=== PATIENT | male | born 1965 | race African-American/Black ===

== ENCOUNTER 2021-07-23 12:36 | Inpatient (IN) ==
--- NOTE | 2021-07-23 12:41 | Emergency Department Note ---
Impression & Plan CHF exacerbation, CKD (chronic kidney disease), Elevated troponin, Hyperkalemia, ICD (implantable cardioverter-defibrillator) in place ED Provider Note NAME: GWEN [id number] JOELLE AGE: 55 SEX: M : 1965 ARRIVES VIA: Ambulance INFORMANT: Patient, ED PROVIDER(S): Dariel Ramesh MD Chief Complaint: Shortness of breath HPI: Patient presents due to concern for shortness of breath which is been ongoing for several days. The patient is had increasing worsening dyspnea on exertion as well as orthopnea. The patient does have occasional cough with clear sputum. Patient does have a known history of CHF and has been taking and increasing doses of his hydrochlorothiazide. The patient had been seen in the [facility] and 40 of Lasix p.o. as well as 80 IV prior to arrival. Patient denies any fevers or chills. Patient denies any chest pains. The patient has noticed increasing weight gain as well as lower extremity edema. Patient denies any prior DVT or PE. The patient does have a defibrillator in place. Patient denies any changes in medications other than increasing his hydrochlorothiazide. ROS: See HPI for pertinent positives and negatives. A total of 10 systems were reviewed and otherwise negative. Past medical history: See below Surgical history: See below Social history: See below Physical Exam: GENERAL: NAD, wearing a mask, non-toxic. EYE EXAM: Normal conjunctiva. PERRL, no anisocoria and EOM's grossly intact w/o pain. NECK: Supple, no nuchal rigidity, no adenopathy, non-tender. No signs of meningismus. FROM of the neck with good chin to chest and neck extension. No stridor. LUNGS: Bibasilar crackles noted. Normal chest wall mechanics. HEART: NSR, no MRG. ABDOMEN: Abdomen soft, non-tender, normo-active bowel sounds, no masses, no rebound or guarding. BACK: No CVA TTP. SKIN: No rashes and no bruising. UPPER EXTREMITIES: Upper extremities are grossly normal. LOWER EXTREMITIES: Grossly normal, 3+ symmetric lower extremity edema without any erythema or calf pain. Lower extremities and plastic restraints. NEURO EXAM: A&O x3, cranial nerves II-XII grossly intact, normal speech, moves all 4 extremities on command w/o issue. Differential diagnoses: Reactive airway disease, pneumonia, pneumothorax, COPD, CHF, infections, cardiac ischemia, pulmonary embolism, musculoskeletal, gastrointestinal, as well as other pathologies. Course: Patient was seen and evaluated the bedside. Full history physical exam was performed. EKG interpreted by me Sinus tachycardia, rate of 107, normal intervals, normal axis, T wave inversion in the lateral leads and high lateral leads. No obvious ST elevations. Imaging Studies: See Below Cardiac monitoring: An order was placed for continuous cardiac monitoring. The monitor shows a rate of 95 with sinus rhythm. MDM: Patient was seen due to concern for shortness of breath and likely volume overload. Blood work was obtained along with a BNP, troponin EKG and chest x- ray. The patient had already received 120 of Lasix. We will monitor the patient's urine output. Patient has a white count of 8.9 with a hemoglobin 9.1 and platelet count that is normal. The patient does have kidney dysfunction with a creat of 7 and potassium greater than 5. Patient troponin is 0.07. The patient has had shortness of breath but denies any active chest pains. I did speak the on-call hospitalist Dr. Fernandez and the patient was to be admitted by the medicine service. I also did speak with the on-call generation engineering technologist given the patient's significant CKD. Dr. Sharp was consulted and will evaluate the patient. Patient did put out 750 cc around the time of admission since presenting to the emergency department. 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 Required: No Beliefs That Will Affect Care: None marital status: Current Living Situation: Other Current Living Situation Comment: Residential 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, 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[facility] How many Children do You have: 14 Feels Safe at Home: Yes Safety Concerns: Feels Safe At This Time Assistive Devices: None Allergies Allergies Allergy/AdvReac Type Severity Reaction Status Date / Time No Known Allergies Allergy Unverified 07/23/21 14:15 Home Meds Home Medications Medication Instructions Recorded Confirmed allopurinol 100 mg tablet 100 mg PO DAILY 07/23/21 07/23/21 aspirin 81 mg tablet,delayed 81 mg PO DAILY 07/23/21 07/23/21 release atorvastatin 80 mg tablet 80 mg PO HS 07/23/21 07/23/21 bumetanide 2 mg tablet 2 mg PO BID 07/23/21 07/23/21 carvedilol 25 mg tablet 50 mg PO BID 07/23/21 07/23/21 docusate sodium 100 mg tablet 100 mg PO DAILY 07/23/21 07/23/21 ferrous sulfate 325 mg (65 mg 325 mg PO Q2D 07/23/21 07/23/21 iron) tablet furosemide 10 mg/mL injection 80 mg IV ONCE 07/23/21 07/23/21 solution furosemide 80 mg tablet 80 mg PO BID 07/23/21 07/23/21 glipizide 10 mg tablet 10 mg PO DAILY 07/23/21 07/23/21 hydralazine 100 mg tablet 100 mg PO BID 07/23/21 07/23/21 hydrochlorothiazide 25 mg tablet 25 mg PO DAILY 07/23/21 07/23/21 insulin NPH isoph U-100 human 100 See Rx Instructions .ROUTE .COMPLEX 07/23/21 07/23/21 unit/mL (3 mL) subcutaneous pen (Novolin N Flexpen) insulin regular human 100 unit/mL 1 sliding scale dose SUBCUT 07/23/21 07/23/21 (3 mL) subcutaneous pen (Novolin R USEASDIRECTD Flexpen) losartan 100 mg tablet 100 mg PO DAILY 07/23/21 07/23/21 Results & Data (ED) Vital Signs Vital Signs - 24 hr 07/23/21 14:40 Pulse Rate [Apical] 100 H Respiratory Rate 20 Respiratory Effort / Characteristics Non-Labored Spontaneous Respiratory Depth Normal Respiratory Pattern Regular Blood Pressure [Right Arm] 142/100 H Blood Pressure Mean [Right Arm] 114 Blood Pressure Position [Right Arm] Sitting Pulse Oximetry 94 Oxygen Delivery Method Room Air Home Medications Current Medication List: was personally reviewed by me Laboratory Data Attestation: I reviewed the patient's lab results. Result diagrams: 07/24/21 05:59 07/24/21 05:59 Lab Results 07/23/21 07/23/21 07/23/21 Range/Units 12:53 12:53 12:53 WBC 8.96 (4.8-10.8) K/uL RBC 3.50 L (4.7-6.1) M/uL Hgb 9.1 L (14.0-18.0) g/dL Hct 28.1 L (42-52) % MCV 80.3 (80-100) fL MCH 26.0 (25-34) pg MCHC 32.4 (32-36) g/dL RDW Std Deviation 47.9 H (36.4-46.3) fL RDW Coeff of Emily 16.2 H (11.5-14.5) % Plt Count 300 (130-400) K/uL MPV 9.4 (7.4-10.4) fL Immature Gran % (Auto) 0.2 % Neut % (Auto) 75.7 % Lymph % (Auto) 17.1 % [place] % (Auto) 5.7 % Eos % (Auto) 1.2 % Baso % (Auto) 0.1 % Neut # (Auto) 6.78 H (1.4-6.5) K/uL Lymph # (Auto) 1.53 (1.2-3.4) K/uL [place] # (Auto) 0.51 (0.11-0.59) K/uL Eos # (Auto) 0.11 (0-0.5) K/uL Baso # (Auto) 0.01 (0-0.2) K/uL Immature Gran # (Auto) 0.02 (0.00-0.02) K/uL Sodium 135 L (136-145) mmol/L Potassium 5.5 H (3.5-5.1) mmol/L Chloride 105 (98-107) mmol/L Carbon Dioxide 22 (21-32) mmol/L Anion Gap 8 (3-11) BUN 70 H (6-23) mg/dl Creatinine 7.86 H* (0.6-1.4) mg/dl Est Cr Clr Drug Dosing 14.3 ml/min Est GFR ( Amer) 8.0 ml/min Est GFR (Non-Af Amer) 6.9 ml/min BUN/Creatinine Ratio 8.9 L (10-20) Glucose 220 H (70-99(Fasting)) mg/dl Calcium 8.1 L (8.5-10.1) mg/dl Magnesium 1.8 (1.7-2.4) mg/dl Iron (35-175) mcg/dl TIBC (250-450) mcg/dl Unsaturated IBC (155-355) mcg/dl Transferrin % Sat (20-50) % Ferritin (8-388) ng/ml Total Bilirubin 0.3 (0.2-1.0) mg/dl AST 10 L (13-39) U/L ALT 11 (7-52) U/L Alkaline Phosphatase 68 (34-104) U/L Troponin I 0.07 H* (0-0.04) ng/ml B-Natriuretic Peptide 569 H (0-100) pg/ml Total Protein 6.8 (6.0-8.3) gm/dl Albumin 3.0 L (3.4-5.0) gm/dl Globulin 3.8 (2.5-4.0) gm/dl Albumin/Globulin Ratio 0.8 L (0.9-2) Folate (>5.38) ng/ml TSH (0.300-4.500) uIu/ml Urine Color Urine Appearance (Clear) Urine pH (4.5-7.5) Ur Specific [place] (1.000-1.030) Urine Protein (Negative) Urine Glucose (UA) (Negative) Urine Ketones (Negative) Urine Blood (Negative) Urine Nitrite (Negative) Urine Bilirubin (Negative) Urine Urobilinogen (Negative) Ur Leukocyte Esterase (Negative) Urine WBC (Auto) (0-5) /hpf Urine RBC (Auto) (0-4) /hpf U Hyaline Cast (Auto) (0-5) /lpf U Epithel Cells (Auto) (0-5) /lpf Urine Bacteria (Auto) (Negative) SARS-CoV-2, RNA, NAAT (NEGATIVE) 07/23/21 07/23/21 07/23/21 Range/Units 12:53 12:53 12:53 WBC (4.8-10.8) K/uL RBC (4.7-6.1) M/uL Hgb (14.0-18.0) g/dL Hct (42-52) % MCV (80-100) fL MCH (25-34) pg MCHC (32-36) g/dL RDW Std Deviation (36.4-46.3) fL RDW Coeff of Emily (11.5-14.5) % Plt Count (130-400) K/uL MPV (7.4-10.4) fL Immature Gran % (Auto) % Neut % (Auto) % Lymph % (Auto) % [place] % (Auto) % Eos % (Auto) % Baso % (Auto) % Neut # (Auto) (1.4-6.5) K/uL Lymph # (Auto) (1.2-3.4) K/uL [place] # (Auto) (0.11-0.59) K/uL Eos # (Auto) (0-0.5) K/uL Baso # (Auto) (0-0.2) K/uL Immature Gran # (Auto) (0.00-0.02) K/uL Sodium (136-145) mmol/L Potassium (3.5-5.1) mmol/L Chloride (98-107) mmol/L Carbon Dioxide (21-32) mmol/L Anion Gap (3-11) BUN (6-23) mg/dl Creatinine (0.6-1.4) mg/dl Est Cr Clr Drug Dosing ml/min Est GFR ( Amer) ml/min Est GFR (Non-Af Amer) ml/min BUN/Creatinine Ratio (10-20) Glucose (70-99(Fasting)) mg/dl Calcium (8.5-10.1) mg/dl Magnesium (1.7-2.4) mg/dl Iron 26 L (35-175) mcg/dl TIBC 228 L (250-450) mcg/dl Unsaturated IBC 202 (155-355) mcg/dl Transferrin % Sat 11 L (20-50) % Ferritin 109.4 (8-388) ng/ml Total Bilirubin (0.2-1.0) mg/dl AST (13-39) U/L ALT (7-52) U/L Alkaline Phosphatase (34-104) U/L Troponin I (0-0.04) ng/ml B-Natriuretic Peptide (0-100) pg/ml Total Protein (6.0-8.3) gm/dl Albumin (3.4-5.0) gm/dl Globulin (2.5-4.0) gm/dl Albumin/Globulin Ratio (0.9-2) Folate 21.42 (>5.38) ng/ml TSH 2.414 (0.300-4.500) uIu/ml Urine Color Urine Appearance (Clear) Urine pH (4.5-7.5) Ur Specific [place] (1.000-1.030) Urine Protein (Negative) Urine Glucose (UA) (Negative) Urine Ketones (Negative) Urine Blood (Negative) Urine Nitrite (Negative) Urine Bilirubin (Negative) Urine Urobilinogen (Negative) Ur Leukocyte Esterase (Negative) Urine WBC (Auto) (0-5) /hpf Urine RBC (Auto) (0-4) /hpf U Hyaline Cast (Auto) (0-5) /lpf U Epithel Cells (Auto) (0-5) /lpf Urine Bacteria (Auto) (Negative) SARS-CoV-2, RNA, NAAT (NEGATIVE) 07/23/21 07/23/21 Range/Units 13:02 13:50 WBC (4.8-10.8) K/uL RBC (4.7-6.1) M/uL Hgb (14.0-18.0) g/dL Hct (42-52) % MCV (80-100) fL MCH (25-34) pg MCHC (32-36) g/dL RDW Std Deviation (36.4-46.3) fL RDW Coeff of Emily (11.5-14.5) % Plt Count (130-400) K/uL MPV (7.4-10.4) fL Immature Gran % (Auto) % Neut % (Auto) % Lymph % (Auto) % [place] % (Auto) % Eos % (Auto) % Baso % (Auto) % Neut # (Auto) (1.4-6.5) K/uL Lymph # (Auto) (1.2-3.4) K/uL [place] # (Auto) (0.11-0.59) K/uL Eos # (Auto) (0-0.5) K/uL Baso # (Auto) (0-0.2) K/uL Immature Gran # (Auto) (0.00-0.02) K/uL Sodium (136-145) mmol/L Potassium (3.5-5.1) mmol/L Chloride (98-107) mmol/L Carbon Dioxide (21-32) mmol/L Anion Gap (3-11) BUN (6-23) mg/dl Creatinine (0.6-1.4) mg/dl Est Cr Clr Drug Dosing ml/min Est GFR ( Amer) ml/min Est GFR (Non-Af Amer) ml/min BUN/Creatinine Ratio (10-20) Glucose (70-99(Fasting)) mg/dl Calcium (8.5-10.1) mg/dl Magnesium (1.7-2.4) mg/dl Iron (35-175) mcg/dl TIBC (250-450) mcg/dl Unsaturated IBC (155-355) mcg/dl Transferrin % Sat (20-50) % Ferritin (8-388) ng/ml Total Bilirubin (0.2-1.0) mg/dl AST (13-39) U/L ALT (7-52) U/L Alkaline Phosphatase (34-104) U/L Troponin I (0-0.04) ng/ml B-Natriuretic Peptide (0-100) pg/ml Total Protein (6.0-8.3) gm/dl Albumin (3.4-5.0) gm/dl Globulin (2.5-4.0) gm/dl Albumin/Globulin Ratio (0.9-2) Folate (>5.38) ng/ml TSH (0.300-4.500) uIu/ml Urine Color Yellow Urine Appearance Clear (Clear) Urine pH 7.0 (4.5-7.5) Ur Specific [place] 1.011 (1.000-1.030) Urine Protein 3+ H (Negative) Urine Glucose (UA) Trace H (Negative) Urine Ketones Negative (Negative) Urine Blood 1+ H (Negative) Urine Nitrite Negative (Negative) Urine Bilirubin Negative (Negative) Urine Urobilinogen Negative (Negative) Ur Leukocyte Esterase Negative (Negative) Urine WBC (Auto) 1-5 (0-5) /hpf Urine RBC (Auto) 0-4 (0-4) /hpf U Hyaline Cast (Auto) 1-5 (0-5) /lpf U Epithel Cells (Auto) 10-20 H (0-5) /lpf Urine Bacteria (Auto) Negative (Negative) SARS-CoV-2, RNA, NAAT NEGATIVE (NEGATIVE) Administered Medications Allopurinol (Allopurinol 100 Mg Tab) 100 mg PO DAILY FRANK Stop: 08/23/21 08:59 Last Admin: 07/24/21 09:22 Dose: 100 mg Documented by: [id number] Aspirin (Aspirin 81 Mg Ectab) 81 mg PO DAILY FRANK Stop: 08/23/21 08:59 Last Admin: 07/24/21 09:22 Dose: 81 mg Documented by: [id number] Atorvastatin Calcium (Atorvastatin 40 Mg Tab) 80 mg PO HS FRANK Stop: 08/22/21 20:59 Last Admin: 07/23/21 19:45 Dose: 80 mg Documented by: [id number] Carvedilol (Carvedilol 25 Mg Tab) 50 mg PO BID FRANK Stop: 08/22/21 20:59 Last Admin: 07/24/21 09:22 Dose: 50 mg Documented by: [id number] Admin: 07/23/21 19:44 Dose: 50 mg Documented by: [id number] Docusate Sodium (Docusate Sodium 100 Mg Cap) 100 mg PO DAILY FRANK Stop: 08/23/21 08:59 Last Admin: 07/24/21 09:32 Dose: Not Given Documented by: [id number] Ferrous Sulfate (Ferrous Sulfate 325 Mg Tab) 325 mg PO Q2D@0900 FRANK Stop: 08/23/21 08:59 Last Admin: 07/24/21 09:23 Dose: 325 mg Documented by: [id number] Furosemide (Furosemide 40 Mg/4 Ml Vial) 80 mg IV [id number] FRANK Stop: 08/22/21 16:59 Last Admin: 07/23/21 19:44 Dose: 80 mg Documented by: [id number] Heparin Sodium (Porcine) (Heparin Sod 5,000 Unit/0.5 Ml Vial) 7,500 units SQ Q8 FRANK Stop: 08/22/21 21:59 Last Admin: 07/24/21 06:17 Dose: 7,500 units Documented by: [id number] Admin: 07/23/21 21:31 Dose: 7,500 units Documented by: [id number] Hydralazine HCl (Hydralazine Tab 50 Mg Tab) 100 mg PO TID [facility] Stop: 08/22/21 20:59 Last Admin: 07/24/21 09:22 Dose: 100 mg Documented by: [id number] Admin: 07/23/21 19:44 Dose: 100 mg Documented by: [id number] Insulin Aspart (Insulin Aspart Per Unit) 0 units SC ACHS [facility] Stop: 08/22/21 18:38 Last Admin: 07/24/21 12:30 Dose: 3 units Documented by: [id number] Cosigned by: [id number] Admin: 07/24/21 08:53 Dose: 3 units Documented by: [id number] Cosigned by: [id number] Admin: 07/23/21 21:30 Dose: 2 units Documented by: [id number] Cosigned by: [id number] Admin: 07/23/21 19:46 Dose: Not Given Documented by: [id number] Insulin Glargine (Insulin Glargine Solostar 100 Units/Ml 3 Ml Pen) 8 units SC HS [facility] Stop: 08/22/21 20:59 Last Admin: 07/23/21 21:30 Dose: 8 units Documented by: [id number] Cosigned by: [id number] Isosorbide Mononitrate (Isosorbide [place] Extended Rel 30 Mg Tabcr) 30 mg PO QAM [facility] Stop: 08/23/21 08:59 Last Admin: 07/24/21 09:21 Dose: 30 mg Documented by: [id number] Discontinued Medications Chlorothiazide Sodium 250 mg/ (Dextrose) 59 mls @ 200 mls/hr IV ONE ONE Stop: 07/23/21 16:47 Last Infusion: 07/23/21 22:18 Dose: 0 mls/hr Documented by: [id number] Admin: 07/23/21 17:20 Dose: 200 mls/hr Documented by: [id number] Magnesium Sulfate/Dextrose (Magnesium Sulfate / D5w) 1 gm in 100 mls @ 50 mls/hr IV ONE ONE Stop: 07/23/21 18:59 Last Infusion: 07/24/21 02:30 Dose: 0 mls/hr Documented by: [id number] Admin: 07/24/21 00:23 Dose: 50 mls/hr Documented by: [id number] Calcium Gluconate 1,000 mg/ (Dextrose) 60 mls @ 240 mls/hr IV NOW ONE Stop: 07/23/21 18:13 Last Infusion: 07/24/21 00:38 Dose: 0 mls/hr Documented by: [id number] Admin: 07/24/21 00:23 Dose: 240 mls/hr Documented by: [id number] Iron Sucrose 300 mg/ Sodium (Chloride) 265 mls @ 176.667 mls/hr IV NOW ONE Stop: 07/23/21 21:29 Last Infusion: 07/24/21 00:20 Dose: 0 mls/hr Documented by: [id number] Admin: 07/23/21 21:43 Dose: 176.7 mls/hr Documented by: [id number] Isosorbide Mononitrate (Isosorbide [place] Extended Rel 30 Mg Tabcr) 30 mg PO NOW ONE Stop: 07/23/21 19:01 Last Admin: 07/23/21 19:45 Dose: 30 mg Documented by: [id number] Miscellaneous (Stat Iv) 1 ea N/A NOW STA Stop: 07/23/21 18:00 Last Admin: 07/23/21 23:27 Dose: 1 ea Documented by: [id number] Patiromer (Patiromer Calcium Sorbitex 8.4 Gm Pack) 8.4 gm PO ONCE ONE Stop: 07/24/21 08:53 Last Admin: 07/24/21 09:58 Dose: 8.4 gm Documented by: [id number] Imaging Data Radiologist's Impression: Chest X-Ray 07/23/21 12:47 XR chest 1V portable CLINICAL HISTORY: Dyspnea TECHNIQUE: Single frontal radiograph of the chest was obtained. Comparison: None available at the time of this dictation. FINDINGS: Pacemaker defibrillator is seen. Cardiomegaly is noted. The lungs are clear. No evidence of pleural effusion or pneumothorax. IMPRESSION: No acute chest disease. ACT 112: Negative or not required by law. Electronically signed by: Sukhdev Moss M.D. 07/23/2021 1:43 PM Discharge Plan Visit Data Chief Complaint: Shortness of Breath/Dyspnea Stated Complaint: SOB Discharge Problem: CHF exacerbation, CKD (chronic kidney disease), Elevated troponin, Hyperkalemia, ICD (implantable cardioverter-defibrillator) in place Patient Disposition: Admitted As Inpatient Discharge Instructions Interventions: ED Discharge Assessment Last Done: 07/23/21 18:05
[2021-07-23 13:15] LABS: Basophils # (auto) 0.01 K/uL (0-0.2); Basophils % (auto) 0.1 %; Eosinophils # (auto) 0.11 K/uL (0-0.5); Eosinophils % (auto) 1.2 %; Hematocrit (blood only) 28.1 % (42-52); Hemoglobin 9.1 g/dL (14.0-18.0); Immature Granulocytes # (auto) 0.02 K/uL (0.00-0.02); Immature Granulocytes % (auto) 0.2 %; Lymphocytes # (auto) 1.53 K/uL (1.2-3.4); Lymphocytes % (auto) 17.1 %; Mean Corpuscular Hgb Conc 32.4 g/dL (32-36); Mean Corpuscular Volume 80.3 fL (80-100); Mean Platelet Volume 9.4 fL (7.4-10.4); Monocytes # (auto) 0.51 K/uL (0.11-0.59); Monocytes % (auto) 5.7 %; Neutrophils # (auto) 6.78 K/uL (1.4-6.5); Neutrophils % (auto) 75.7 %; Platelet Count 300 K/uL (130-400); RDW Coefficient of Variation 16.2 % (11.5-14.5); RDW Standard Deviation 47.9 fL (36.4-46.3); White Blood Count 8.96 K/uL (4.8-10.8)
--- NOTE | 2021-07-23 13:45 | XRay Report ---
XR chest 1V portable CLINICAL HISTORY: Dyspnea TECHNIQUE: Single frontal radiograph of the chest was obtained. Comparison: None available at the time of this dictation. FINDINGS: Pacemaker defibrillator is seen. Cardiomegaly is noted. The lungs are clear. No evidence of pleural e ffusion or pneumothorax. IMPRESSION: No acute chest disease. ACT 112: Negative or not required by law. Electronically signed by: Sukhdev Moss M.D. 07/23/2021 1:43 PM
[2021-07-23 13:52] LABS: Albumin Globulin Ratio 0.8 (0.9-2); BUN Creatinine Ratio 8.9 (10-20); Bilirubin,Total 0.3 mg/dl (0.2-1.0); Calcium 8.1 mg/dl (8.5-10.1); Creatinine Clr Calc Pharmacy 14.3 ml/min; Est GFR (Non-African American) 6.9 ml/min; Globulin 3.8 gm/dl (2.5-4.0); Magnesium 1.8 mg/dl (1.7-2.4); Potassium 5.5 mmol/L (3.5-5.1); Total Protein 6.8 gm/dl (6.0-8.3); Troponin I 0.07 ng/ml (0-0.04)
[2021-07-23 14:09] LABS: Appearance Urine Clear (Clear); Bacteria Urine Automated Negative (Negative); Bilirubin Urine Negative (Negative); Blood Urine 1+ (Negative); Color Urine Yellow; Glucose Urine UA Trace (Negative); Ketones Urine Negative (Negative); Leukocyte Esterase Urine Negative (Negative); Nitrite Urine Negative (Negative); Protein Urine 3+ (Negative); RBC Urine Automated 0-4 /hpf (0-4); Specific Gravity Urine 1.011 (1.000-1.030); Urobilinogen Urine Negative (Negative)
--- NOTE | 2021-07-23 14:42 | History & Physical Report ---
Date of Service July 23, 2021 Assessment & Plan (1) Cardiorenal syndrome with renal failure: Plan: Presents with elevated BUN and creatinine to 70 and 7.8, mild hyperkalemia, and volume overload with abdominal distention, worsening lower extremity edema, orthopnea, and GROVE Is hypertensive and mildly tachycardic-sinus In the setting of known HFrEF although cardiology records not available at this time Unknown baseline renal function-records requested from intermediate and from [facility] in [place] Urinalysis with 3+ protein, no casts or blood. He is nonoliguric -Admit to PCU -Appreciate nephrology consultation -Give another dose of IV Lasix 80 mg this evening with Diuril 250 mg IV x130 minutes prior -Follow I's and O's, daily weights -Check renal ultrasound -Check echocardiogram -Consult cardiology -Hold/discontinue home losartan, hold home Bumex, furosemide, and HCTZ -Follow BMP again now and in the morning -Low sodium/low potassium/renal diet (2) CKD (chronic kidney disease): Plan: Unknown stage, but was seen by nephrology in 2020 for the first time and was told he had 3 or 4 years until he would likely need dialysis (3) HFrEF (heart failure with reduced ejection fraction): Plan: Previously followed with cardiology at [facility] in [place], but not since he has been incarcerated approximately 8 months ago. Has had ICD first placed in 2006 for what sounds like nonischemic cardiomyopathy of unknown cause Has had replacement of ICD 1 time since then proBNP elevated in the 500s Request records from [facility] Diuresis as above -Continue home carvedilol 50 mg p.o. twice daily -Discontinue home losartan -Continue hydralazine and increased dose to 100 mg p.o. 3 times daily, add iso sorbide 30 mg p.o. once daily for BP control and to reduce preload as per nephrology -Daily I's and O's, weights, low-sodium diet -Holding home p.o. diuretics while on IV diuretics here -Follow BMP, magnesium-replace with 1 g IV magnesium now to keep above 2.0 (4) Elevated troponin: Plan: Troponin elevated at 0.07 on arrival. He does not have any chest pain He does have T wave inversions in the lateral leads and I do not have an old ECG to compare to Check echocardiogram Follow serial troponin and ECG (5) Abnormal ECG: Plan: As above (6) Hyperkalemia: Plan: Potassium 5.5 on admission in the setting of acute kidney injury on CKD making urine and diuresing as above Repeat BMP now Low potassium diet If potassium still elevated, will will give V[place] (7) Anemia: Plan: Hemoglobin 9.0, MCV low at 80 No evidence of bleeding from anywhere Continue home ferrous sulfate Check iron studies, B12, folate, TSH Follow CBC (8) Hypertension: Plan: Elevated blood pressures here Continue home Coreg -Holding home Bumex, furosemide, HCTZ as above -Discontinue losartan as above -Increase hydralazine to 100 mg p.o. 3 times daily and adding isosorbide 30 mg p.o. daily and titrate up as needed (9) Gout: Plan: No acute issues Continue home allopurinol which is renally dosed (10) Diabetes mellitus type 2 in obese: Plan: Blood pressure elevated here 220 Hold home NPH and give Lantus 8 units SQ at bedtime for now Start NovoLog supplemental insulin with meals and at bedtime Check hemoglobin A1c in the morning (11) Obesity: Plan: BMI 44.0 Suspect a lot of his weight is fluid retention at this time Recommend weight loss Plan: DVT prophylaxis-SCDs, heparin SQ Disposition-admit to PCU Full code History of Present Illness Chief Complaint: Shortness of breath, leg swelling Primary Care Provider: MEI Juarez This patient is a 55-year-old male prisoner with a history of likely chronic systolic CHF, AICD, nonischemic cardiomyopathy, CKD unknown stage, gout, DM 2, HTN, and anemia who presents with concern for shortness of breath for a couple of days and EKG changes as noted on intermediate paperwork. He was complaining of worsening shortness of breath with exertion as well as with lying flat worsening over the last 3 weeks along with increasing lower extremity edema. He has an occasional cough with clear sputum. He denies any chest pain. He has had some abdominal distention as well. I do not have any other records on him at this time on his history and he has never been to this facility previously. He reports no hospitalizations in a long time. He previously followed at [facility] with cardiology in [place], but has been incarcerated for the last 8 months. He reports the presented blood work fairly recently but he was never told the results and has no idea how well his kidneys typically function. He was referred to a glassie about 8 months ago when he was in the [facility] intermediate and was started on bumetanide 2 mg p.o. daily at that time but never had follow-up as he has since been transferred to [facility]. He was given 80 mg of IV Lasix prior to transport to the hospital. His medication list was reviewed and is noted to have HCTZ, bumetanide, furosemide, and losartan all present. In the ER, he was hypertensive and mildly tachycardic. His pulse ox was 94% on room air and he was not tachypneic. In the ER, he was found to have a creatinine of 7.86, and a potassium of 5.5. I do not know what his baseline renal function is. His proBNP was elevated at 569, troponin elevated at 0.07, and he had a microcytic anemia with a hemoglobin of 9.1. Urinalysis with 3+ protein. He was hypertensive and mildly tachycardic in a sinus rhythm. ECG did show inferolateral T wave inversions similar to the EKG at the intermediate from the same date, however I have no baseline ECG to compare to. Chest x-ray was normal. He was not given any further diuretics in the ER as he had put out 750 mL of urine after arrival. I discussed his care with nephrology at the bedside. He will be admitted for suspected acute kidney injury and acute on chronic systolic CHF. Allergies Allergy/AdvReac Type Severity Reaction Status Date / Time No Known Allergies Allergy Unverified 07/23/21 14:15 Home Medications Medication Instructions Recorded Confirmed Type allopurinol 100 mg tablet 100 mg PO DAILY 07/23/21 07/23/21 History aspirin 81 mg tablet,delayed 81 mg PO DAILY 07/23/21 07/23/21 History release atorvastatin 80 mg tablet 80 mg PO HS 07/23/21 07/23/21 History bumetanide 2 mg tablet 2 mg PO BID 07/23/21 07/23/21 History carvedilol 25 mg tablet 50 mg PO BID 07/23/21 07/23/21 History docusate sodium 100 mg tablet 100 mg PO DAILY 07/23/21 07/23/21 History ferrous sulfate 325 mg (65 mg 325 mg PO Q2D 07/23/21 07/23/21 History iron) tablet furosemide 10 mg/mL injection 80 mg IV ONCE 07/23/21 07/23/21 History solution furosemide 80 mg tablet 80 mg PO BID 07/23/21 07/23/21 History glipizide 10 mg tablet 10 mg PO DAILY 07/23/21 07/23/21 History hydralazine 100 mg tablet 100 mg PO BID 07/23/21 07/23/21 History hydrochlorothiazide 25 mg tablet 25 mg PO DAILY 07/23/21 07/23/21 History insulin NPH isoph U-100 human 100 See Rx Instructions .ROUTE .COMPLEX 07/23/21 07/23/21 History unit/mL (3 mL) subcutaneous pen (Novolin N Flexpen) insulin regular human 100 unit/mL 1 sliding scale dose SUBCUT 07/23/21 07/23/21 History (3 mL) subcutaneous pen (Novolin R USEASDIRECTD Flexpen) losartan 100 mg tablet 100 mg PO DAILY 07/23/21 07/23/21 History Past Med/Surg History Medical History Anemia CKD (chronic kidney disease) Diabetes mellitus type 2 in obese Gout HFrEF (heart failure with reduced ejection fraction) Hypertension Obesity Surgical History (Updated 07/23/21 @ 16:44 by Bernice Fernandez MD) ICD (implantable cardioverter-defibrillator) in place Family History (Updated 07/23/21 @ 16:45 by Bernice Fernandez MD) Denies family history of Congenital kidney disease Social History Smoking Status: Never smoker marital status: 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, 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[facility] How many Children do You have: 14 Feels Safe at Home: Yes Review of Systems Review of Systems: All systems reviewed & are unremarkable except as noted in HPI & below Physical Exam Constitutional: WD/WN, vitals as above + morbidly obese; no acute distress Eyes: PERRL, conjunctivae normal, anicteric sclerae ENMT: external ear and nose normal, oropharynx normal Neck: trachea midline, no thyromegaly Respiratory: normal respiratory effort, lungs clear to auscultation Cardiovascular: Rate/Rhythm: regular rhythm and + tachycardic Heart Sounds: no murmur Extremities: + edema (3+ pitting edema to the thighs bilaterally of lower extremities) Neck obese and difficult to assess for JVD Chest (Breasts): Chest: normal inspection of chest Gastrointestinal (Abdomen): normal bowel sounds, soft, nontender, no he patosplenomegaly Musculoskeletal: Extremities: extremities normal to inspection; no cyanosis and no clubbing Skin: no rashes, warm and dry Neurologic: moves all extremities and awake; no focal motor deficits Psychiatric: A+Ox3, euthymic affect Lymphatic: no lymphedema Results & Data Results & Data ([facility]) Vital Signs (Past 12 Hours) Vital Signs Temp Pulse Pulse Resp BP BP Pulse Ox 07/23/21 12:48 106 H 20 94 07/23/21 12:40 36.9 C 108 H 110 H 20 151/102 H 151/102 H 94 Laboratory Results 07/23/21 07/23/21 07/23/21 Range/Units 13:50 13:02 12:53 WBC (4.8-10.8) K/uL RBC (4.7-6.1) M/uL Hgb (14.0-18.0) g/dL Hct (42-52) % MCV (80-100) fL MCH (25-34) pg MCHC (32-36) g/dL RDW Std Deviation (36.4-46.3) fL RDW Coeff of Emily (11.5-14.5) % Plt Count (130-400) K/uL MPV (7.4-10.4) fL Immature Gran % (Auto) % Neut % (Auto) % Lymph % (Auto) % [place] % (Auto) % Eos % (Auto) % Baso % (Auto) % Neut # (Auto) (1.4-6.5) K/uL Lymph # (Auto) (1.2-3.4) K/uL [place] # (Auto) (0.11-0.59) K/uL Eos # (Auto) (0-0.5) K/uL Baso # (Auto) (0-0.2) K/uL Immature Gran # (Auto) (0.00-0.02) K/uL Sodium 135 L (136-145) mmol/L Potassium 5.5 H (3.5-5.1) mmol/L Chloride 105 (98-107) mmol/L Carbon Dioxide 22 (21-32) mmol/L Anion Gap 8 (3-11) BUN 70 H (6-23) mg/dl Creatinine 7.86 H* (0.6-1.4) mg/dl Est Cr Clr Drug Dosing 14.3 ml/min Est GFR ( Amer) 8.0 ml/min Est GFR (Non-Af Amer) 6.9 ml/min BUN/Creatinine Ratio 8.9 L (10-20) Glucose 220 H (70-99(Fasting)) mg/dl Calcium 8.1 L (8.5-10.1) mg/dl Magnesium 1.8 (1.7-2.4) mg/dl Total Bilirubin 0.3 (0.2-1.0) mg/dl AST 10 L (13-39) U/L ALT 11 (7-52) U/L Alkaline Phosphatase 68 (34-104) U/L Troponin I 0.07 H* (0-0.04) ng/ml B-Natriuretic Peptide (0-100) pg/ml Total Protein 6.8 (6.0-8.3) gm/dl Albumin 3.0 L (3.4-5.0) gm/dl Globulin 3.8 (2.5-4.0) gm/dl Albumin/Globulin Ratio 0.8 L (0.9-2) Urine Color Yellow Urine Appearance Clear (Clear) Urine pH 7.0 (4.5-7.5) Ur Specific [place] 1.011 (1.000-1.030) Urine Protein 3+ H (Negative) Urine Glucose (UA) Trace H (Negative) Urine Ketones Negative (Negative) Urine Blood 1+ H (Negative) Urine Nitrite Negative (Negative) Urine Bilirubin Negative (Negative) Urine Urobilinogen Negative (Negative) Ur Leukocyte Esterase Negative (Negative) Urine WBC (Auto) 1-5 (0-5) /hpf Urine RBC (Auto) 0-4 (0-4) /hpf U Hyaline Cast (Auto) 1-5 (0-5) /lpf U Epithel Cells (Auto) 10-20 H (0-5) /lpf Urine Bacteria (Auto) Negative (Negative) SARS-CoV-2, RNA, NAAT NEGATIVE (NEGATIVE) 07/23/21 07/23/21 Range/Units 12:53 12:53 WBC 8.96 (4.8-10.8) K/uL RBC 3.50 L (4.7-6.1) M/uL Hgb 9.1 L (14.0-18.0) g/dL Hct 28.1 L (42-52) % MCV 80.3 (80-100) fL MCH 26.0 (25-34) pg MCHC 32.4 (32-36) g/dL RDW Std Deviation 47.9 H (36.4-46.3) fL RDW Coeff of Emily 16.2 H (11.5-14.5) % Plt Count 300 (130-400) K/uL MPV 9.4 (7.4-10.4) fL Immature Gran % (Auto) 0.2 % Neut % (Auto) 75.7 % Lymph % (Auto) 17.1 % [place] % (Auto) 5.7 % Eos % (Auto) 1.2 % Baso % (Auto) 0.1 % Neut # (Auto) 6.78 H (1.4-6.5) K/uL Lymph # (Auto) 1.53 (1.2-3.4) K/uL [place] # (Auto) 0.51 (0.11-0.59) K/uL Eos # (Auto) 0.11 (0-0.5) K/uL Baso # (Auto) 0.01 (0-0.2) K/uL Immature Gran # (Auto) 0.02 (0.00-0.02) K/uL Sodium (136-145) mmol/L Potassium (3.5-5.1) mmol/L Chloride (98-107) mmol/L Carbon Dioxide (21-32) mmol/L Anion Gap (3-11) BUN (6-23) mg/dl Creatinine (0.6-1.4) mg/dl Est Cr Clr Drug Dosing ml/min Est GFR ( Amer) ml/min Est GFR (Non-Af Amer) ml/min BUN/Creatinine Ratio (10-20) Glucose (70-99(Fasting)) mg/dl Calcium (8.5-10.1) mg/dl Magnesium (1.7-2.4) mg/dl Total Bilirubin (0.2-1.0) mg/dl AST (13-39) U/L ALT (7-52) U/L Alkaline Phosphatase (34-104) U/L Troponin I (0-0.04) ng/ml B-Natriuretic Peptide 569 H (0-100) pg/ml Total Protein (6.0-8.3) gm/dl Albumin (3.4-5.0) gm/dl Globulin (2.5-4.0) gm/dl Albumin/Globulin Ratio (0.9-2) Urine Color Urine Appearance (Clear) Urine pH (4.5-7.5) Ur Specific [place] (1.000-1.030) Urine Protein (Negative) Urine Glucose (UA) (Negative) Urine Ketones (Negative) Urine Blood (Negative) Urine Nitrite (Negative) Urine Bilirubin (Negative) Urine Urobilinogen (Negative) Ur Leukocyte Esterase (Negative) Urine WBC (Auto) (0-5) /hpf Urine RBC (Auto) (0-4) /hpf U Hyaline Cast (Auto) (0-5) /lpf U Epithel Cells (Auto) (0-5) /lpf Urine Bacteria (Auto) (Negative) SARS-CoV-2, RNA, NAAT (NEGATIVE) Diagnostic Findings Chest X-Ray 07/23/21 12:47 XR chest 1V portable CLINICAL HISTORY: Dyspnea TECHNIQUE: Single frontal radiograph of the chest was obtained. Comparison: None available at the time of this dictation. FINDINGS: Pacemaker defibrillator is seen. Cardiomegaly is noted. The lungs are clear. No evidence of pleural effusion or pneumothorax. IMPRESSION: No acute chest disease. ACT 112: Negative or not required by law. Electronically signed by: Sukhdev Moss M.D. 07/23/2021 1:43 PM ECG Additional Comments: ECG on 07/23/2021 at 1248 with sinus tachycardia, rate 107, T wave inversions in inferolateral leads, no baseline to compare to Code Status & VTE Plan Code Status Full code VTE Prophylaxis Plan VTE Prophylaxis will be ordered: Yes PG Care Time/CCT Total # of Minutes Spent Total Time Spent with Patient: Total time spent is greater than 50% in coordination of care (as documented) at patient's floor/unit and/or counseling patient: Coding Level of Care Code 00013 Initial Inpt Care Lvl 3 Diagnoses Obesity E66.9 Hypertension I10 Gout M10.9 Diabetes mellitus type 2 in obese E11.69; E66.9 Anemia D64.9 HFrEF (heart failure with reduced ejection fraction) I50.20 CKD (chronic kidney disease) N18.9 Abnormal ECG R94.31 Elevated troponin R77.8 Hyperkalemia E87.5 Cardiorenal syndrome with renal failure I13.10
--- NOTE | 2021-07-23 15:52 | Nephrology Consultation ---
Date of Consultation July 23, 2021 Assessment & Plan (1) Cardiorenal syndrome with renal failure: * No prior records available. Baseline Cr is unknown. No FHx of CKD/ESRD. Patient denies prior AMI, PCI/stent. Clinically suspect hypertensive CMP s/p AICD. Now has type 2 CRS * Recommend echocardiogram, trend cardiac enzymes and request consultation w/ Cardiology * Patient is nonoliguric. Agree w/ high dose diuretic therapy (recommend Diuril 250 mg IV x1, followed by Furosemide 80 mg IV x1 this evening) * Urine sediment is negative for cellular casts * Will order UPCR * I have spoken w/ hospitalist service. They have ordered echocardiogram, renal US and will provide evening dose of diuretic * No acute indication for HD this evening. Patient is diuresing in response to bolus IV diuretic therapy * Recommend low K, low Na, HD diet (2) Hyperkalemia: * Moderate hyperkalemia without ECG changes * Patient is responding to IV diuretic therapy * Hospitalist team has ordered repeat PRP * No acute indication for HD this evening (3) Anemia: * Mild anemia. Patient denies overt blood loss. Anemia may be related to CKD. Will order iron studies, FOBT History of Present Illness Reason for Consultation: Cardiorenal syndrome History of Present Illness Mr. Palafox is a 55 year old [facility] inmate who is seen at the request of Dr. Ramesh for CRS. History is obtained from the patient. He has no prior hospitalizations at [facility] and no prior medical records are currently available for review. Mr. Palafox reports that he developed CHF requiring AICD seven years ago. He denies prior AMI and has no h/o PVD. His medical history is significant for obesity, AODM, HN, gout and anemia. December 2020 he was referred to Nephrology. He was told that his kidney function was impaired and started on oral Bumex. He does not know his stage of CKD and denies hematuria, proteinuria or difficulty voiding. Mr. Palafox reports that he has experienced progressive GROVE over the last 3 weeks. This has been associated w/ abdominal and LE swelling. He had no chest pain. He was given 40 mg Furosemide po x1 followed by 80 mg [facility] and then transported to [facility] for evaluation. In the ED, CXR was negative for pulmonary edema or pleural effusion. COVID test negative. Hgb 9.1, K 5.5, Cr 7.8, troponin 0.07, BNP 569. Urinalysis revealed 3+ protein. Microscopy was negative for blood or cellular casts. ECG revealed sinus tachycardia w/ lateral T-wave inversion. No OK prolongation or QRS widening. Patient diuresed 700 cc in response to the diuretics administered [facility] and was breathing comfortably flat in bed on RA. Allergies Allergy/AdvReac Type Severity Reaction Status Date / Time No Known Allergies Allergy Unverified 07/23/21 14:15 Home Medications Medication Instructions Recorded Confirmed Type allopurinol 100 mg tablet 100 mg PO DAILY 07/23/21 07/23/21 History aspirin 81 mg tablet,delayed 81 mg PO DAILY 07/23/21 07/23/21 History release atorvastatin 80 mg tablet 80 mg PO HS 07/23/21 07/23/21 History bumetanide 2 mg tablet 2 mg PO BID 07/23/21 07/23/21 History carvedilol 25 mg tablet 50 mg PO BID 07/23/21 07/23/21 History docusate sodium 100 mg tablet 100 mg PO DAILY 07/23/21 07/23/21 History ferrous sulfate 325 mg (65 mg 325 mg PO Q2D 07/23/21 07/23/21 History iron) tablet furosemide 10 mg/mL injection 80 mg IV ONCE 07/23/21 07/23/21 History solution furosemide 80 mg tablet 80 mg PO BID 07/23/21 07/23/21 History glipizide 10 mg tablet 10 mg PO DAILY 07/23/21 07/23/21 History hydralazine 100 mg tablet 100 mg PO BID 07/23/21 07/23/21 History hydrochlorothiazide 25 mg tablet 25 mg PO DAILY 07/23/21 07/23/21 History insulin NPH isoph U-100 human 100 See Rx Instructions .ROUTE .COMPLEX 07/23/21 07/23/21 History unit/mL (3 mL) subcutaneous pen (Novolin N Flexpen) insulin regular human 100 unit/mL 1 sliding scale dose SUBCUT 07/23/21 07/23/21 History (3 mL) subcutaneous pen (Novolin R USEASDIRECTD Flexpen) losartan 100 mg tablet 100 mg PO DAILY 07/23/21 07/23/21 History Patient History Medical History Anemia CKD (chronic kidney disease) Diabetes mellitus type 2 in obese Gout HFrEF (heart failure with reduced ejection fraction) Hypertension Obesity Surgical History Status post biventricular cardiac pacemaker insertion Social History (Updated 07/23/21 @ 16:07 by Luis Sharp MD) Smoking Status: Never smoker marital status: 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, 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[facility] How many Children do You have: 14 Feels Safe at Home: Yes Review of Systems Constitutional: no fever Eyes: no problem reported Ear, Nose, Mouth, Throat: no problem reported Respiratory: + dyspnea on exertion Cardiovascular: + edema; no chest pain and no palpitations Gastrointestinal: + bloating; no abdominal pain and no nausea Genitourinary: no dysuria, no urinary hesitancy or no hematuria Musculoskeletal: no back pain Integumentary: no rash Neurologic: no falls, no dizziness and no confusion Physical Exam Constitutional: + obese; not in distress Eyes: PERRL, conjunctivae normal, anicteric sclerae ENMT: external ear and nose normal, oropharynx normal Neck: trachea midline, no thyromegaly short thick neck, unable to assess for JVD Respiratory: normal respiratory effort, lungs clear to auscultation Cardiovascular: Rate/Rhythm: + tachycardic Heart Sounds: no gallop, no murmur and no cardiac rub Extremities: + edema (3+ pretibial pitting edema) AICD palpable beneath the L clavicle Gastrointestinal (Abdomen): Inspection/Auscultation: + abdomen distended and + hypoactive bowel sounds Percussion/Palpation: abdomen soft; abdomen nontender Neurologic: awake; not confused Results & Data ([facility]) Vital Signs (Past 12 Hours) Vital Signs Temp Pulse Pulse Resp BP BP Pulse Ox 07/23/21 12:48 106 H 20 94 07/23/21 12:40 36.9 C 108 H 110 H 20 151/102 H 151/102 H 94 Laboratory Results Laboratory Results WBC 8.96 K/uL (4.8-10.8) 07/23/21 12:53 RBC 3.50 M/uL (4.7-6.1) L 07/23/21 12:53 Hgb 9.1 g/dL (14.0-18.0) L 07/23/21 12:53 Hct 28.1 % (42-52) L 07/23/21 12:53 MCV 80.3 fL (80-100) 07/23/21 12:53 MCH 26.0 pg (25-34) 07/23/21 12:53 MCHC 32.4 g/dL (32-36) 07/23/21 12:53 RDW Std Deviation 47.9 fL (36.4-46.3) H 07/23/21 12:53 RDW Coeff of Emily 16.2 % (11.5-14.5) H 07/23/21 12:53 Plt Count 300 K/uL (130-400) 07/23/21 12:53 MPV 9.4 fL (7.4-10.4) 07/23/21 12:53 Immature Gran % (Auto) 0.2 % 07/23/21 12:53 Neut % (Auto) 75.7 % 07/23/21 12:53 Lymph % (Auto) 17.1 % 07/23/21 12:53 Haralson % (Auto) 5.7 % 07/23/21 12:53 Eos % (Auto) 1.2 % 07/23/21 12:53 Baso % (Auto) 0.1 % 07/23/21 12:53 Neut # (Auto) 6.78 K/uL (1.4-6.5) H 07/23/21 12:53 Lymph # (Auto) 1.53 K/uL (1.2-3.4) 07/23/21 12:53 Haralson # (Auto) 0.51 K/uL (0.11-0.59) 07/23/21 12:53 Eos # (Auto) 0.11 K/uL (0-0.5) 07/23/21 12:53 Baso # (Auto) 0.01 K/uL (0-0.2) 07/23/21 12:53 Immature Gran # (Auto) 0.02 K/uL (0.00-0.02) 07/23/21 12:53 Sodium 135 mmol/L (136-145) L 07/23/21 12:53 Potassium 5.5 mmol/L (3.5-5.1) H 07/23/21 12:53 Chloride 105 mmol/L (98-107) 07/23/21 12:53 Carbon Dioxide 22 mmol/L (21-32) 07/23/21 12:53 Anion Gap 8 (3-11) 07/23/21 12:53 BUN 70 mg/dl (6-23) H 07/23/21 12:53 Creatinine 7.86 mg/dl (0.6-1.4) H* 07/23/21 12:53 Est Cr Clr Drug Dosing 14.3 ml/min 07/23/21 12:53 Est GFR ( Amer) 8.0 ml/min 07/23/21 12:53 Est GFR (Non-Af Amer) 6.9 ml/min 07/23/21 12:53 BUN/Creatinine Ratio 8.9 (10-20) L 07/23/21 12:53 Glucose 220 mg/dl (70-99(Fasting)) H 07/23/21 12:53 Calcium 8.1 mg/dl (8.5-10.1) L 07/23/21 12:53 Magnesium 1.8 mg/dl (1.7-2.4) 07/23/21 12:53 Total Bilirubin 0.3 mg/dl (0.2-1.0) 07/23/21 12:53 AST 10 U/L (13-39) L 07/23/21 12:53 ALT 11 U/L (7-52) 07/23/21 12:53 Alkaline Phosphatase 68 U/L (34-104) 07/23/21 12:53 Troponin I 0.07 ng/ml (0-0.04) H* 07/23/21 12:53 B-Natriuretic Peptide 569 pg/ml (0-100) H 07/23/21 12:53 Total Protein 6.8 gm/dl (6.0-8.3) 07/23/21 12:53 Albumin 3.0 gm/dl (3.4-5.0) L 07/23/21 12:53 Globulin 3.8 gm/dl (2.5-4.0) 07/23/21 12:53 Albumin/Globulin Ratio 0.8 (0.9-2) L 07/23/21 12:53 Urine Color Yellow 07/23/21 13:50 Urine Appearance Clear (Clear) 07/23/21 13:50 Urine pH 7.0 (4.5-7.5) 07/23/21 13:50 Ur Specific Lenore 1.011 (1.000-1.030) 07/23/21 13:50 Urine Protein 3+ (Negative) H 07/23/21 13:50 Urine Glucose (UA) Trace (Negative) H 07/23/21 13:50 Urine Ketones Negative (Negative) 07/23/21 13:50 Urine Blood 1+ (Negative) H 07/23/21 13:50 Urine Nitrite Negative (Negative) 07/23/21 13:50 Urine Bilirubin Negative (Negative) 07/23/21 13:50 Urine Urobilinogen Negative (Negative) 07/23/21 13:50 Ur Leukocyte Esterase Negative (Negative) 07/23/21 13:50 Urine WBC (Auto) 1-5 /hpf (0-5) 07/23/21 13:50 Urine RBC (Auto) 0-4 /hpf (0-4) 07/23/21 13:50 U Hyaline Cast (Auto) 1-5 /lpf (0-5) 07/23/21 13:50 U Epithel Cells (Auto) 10-20 /lpf (0-5) H 07/23/21 13:50 Urine Bacteria (Auto) Negative (Negative) 07/23/21 13:50 SARS-CoV-2, RNA, NAAT NEGATIVE (NEGATIVE) 07/23/21 13:02 Impressions Chest X-Ray 07/23/21 12:47 XR chest 1V portable CLINICAL HISTORY: Dyspnea TECHNIQUE: Single frontal radiograph of the chest was obtained. Comparison: None available at the time of this dictation. FINDINGS: Pacemaker defibrillator is seen. Cardiomegaly is noted. The lungs are clear. No evidence of pleural effusion or pneumothorax. IMPRESSION: No acute chest disease. ACT 112: Negative or not required by law. Electronically signed by: Sukhdev Moss M.D. 07/23/2021 1:43 PM PG Care Time/CCT Total # of Minutes Spent Total Time Spent with Patient: Total time spent is greater than 50% in coordination of care (as documented) at patient's floor/unit and/or counseling patient: Coding Level of Care Code 10019 Inpt Consult Level 5 Diagnoses Cardiorenal syndrome with renal failure I13.10 Hyperkalemia E87.5 Anemia D64.9
[2021-07-23] MEDS ORDERED: CHLOROTHIAZIDE SODIUM 250 MG in DEXTROSE 5% 50 ML IV ONE (16:30)
--- NOTE | 2021-07-23 16:33 | Electrocardiogram Report ---
Test Reason : Blood Pressure : / mmHG Vent. Rate : 107 BPM Atrial Rate : 107 BPM P-R Int : 176 ms QRS Dur : 096 ms QT Int : 362 ms P-R-T Axes : 076 -16 166 degrees QTc Int : 483 ms Sinus tachycardia Poor R wave progression, consider anterior KS vs. lead placement vs. LVH Diffuse Nonspecific T wave abnormality Abnormal ECG No previous ECGs available Confirmed by Vishnu Babcock ([id number]) on 07/23/2021 4:33:32 PM Referred By: [facility] Confirmed By:Vishnu Babcock
[2021-07-23] MEDS ORDERED: FUROSEMIDE 40 MG/4 ML VIAL IV SCH (17:00)
[2021-07-23] MEDS ORDERED: MAGNESIUM SULFATE / D5W 1 GM/100 ML BAG IV ONE (17:00)
[2021-07-23 17:30] LABS: Ferritin 109.4 ng/ml (8-388)
[2021-07-23 17:32] LABS: BUN Creatinine Ratio 9.1 (10-20); Calcium 7.2 mg/dl (8.5-10.1); Creatinine Clr Calc Pharmacy 14.6 ml/min; Est GFR (African American) 8.2 ml/min; Est GFR (Non-African American) 7.1 ml/min; Potassium 5.1 mmol/L (3.5-5.1); Troponin I 0.07 ng/ml (0-0.04)
[2021-07-23] MEDS ORDERED: CALCIUM GLUCONATE 10% 1,000 MG in DEXTROSE 5% 50 ML IV ONE (17:59)
[2021-07-23] MEDS ORDERED: STAT IV STA (17:59)
[2021-07-23] MEDS ORDERED: DEXTROSE 50% 50 ML SYRINGE IV PRN (18:39)
[2021-07-23] MEDS ORDERED: GLUCAGON FOR INJ 1 MG VIAL SQ PRN (18:39)
[2021-07-23] MEDS ORDERED: GLUCOSE 10 TABS/TUBE PO PRN (18:39)
[2021-07-23] MEDS ORDERED: CARBOHYDRATES FOR HYPOGLYCEMIA PO PRN (18:39)
[2021-07-23] MEDS ORDERED: ACETAMINOPHEN 325 MG TAB PO PRN (18:39)
[2021-07-23] MEDS ORDERED: NITROGLYCERIN SL 0.4 MG/TAB TAB SL PRN (18:39)
[2021-07-23] MEDS ORDERED: ONDANSETRON INJ 2 MG/ML 2 ML VIAL IV PRN (18:39)
[2021-07-23] MEDS ORDERED: POLYETHYLENE (MIRALAX) 17 GM PACK PO PRN (18:39)
[2021-07-23] MEDS ORDERED: GLUCOSE 40% GEL 15 GM TUBE PO PRN (18:39)
[2021-07-23] MEDS ORDERED: ISOSORBIDE MONO EXTENDED REL 30 MG TABCR PO ONE (19:00)
[2021-07-23] MEDS: hydrALAZINE TAB 50 MG TAB PO SCH (19:44)
[2021-07-23] MEDS: carvediloL 25 MG TAB PO SCH (19:44)
[2021-07-23] MEDS: ATORVASTATIN 40 MG TAB PO SCH (19:45)
[2021-07-23] MEDS: INSULIN ASPART PER UNIT SC SCH ×2 (19:46→21:30)
[2021-07-23] MEDS ORDERED: IRON SUCROSE 300 MG in SODIUM CHLORIDE 0.9% 250 ML IV ONE (20:00)
[2021-07-23] MEDS: INSULIN GLARGINE SOLOSTAR 100 UNITS/ML 3 ML PEN SC SCH (21:30)
[2021-07-23] MEDS: HEPARIN SOD 5,000 UNIT/0.5 ML VIAL SQ SCH (21:31)
[2021-07-24] MEDS: HEPARIN SOD 5,000 UNIT/0.5 ML VIAL SQ SCH ×3 (06:17→20:31)
[2021-07-24 06:56] LABS: Basophils # (auto) 0.01 K/uL (0-0.2); Basophils % (auto) 0.1 %; Eosinophils # (auto) 0.13 K/uL (0-0.5); Eosinophils % (auto) 1.8 %; Hemoglobin 8.7 g/dL (14.0-18.0); Immature Granulocytes # (auto) 0.01 K/uL (0.00-0.02); Immature Granulocytes % (auto) 0.1 %; Lymphocytes # (auto) 1.55 K/uL (1.2-3.4); Lymphocytes % (auto) 21.3 %; Mean Corpuscular Hemoglobin 27.7 pg (25-34); Mean Corpuscular Hgb Conc 34.8 g/dL (32-36); Mean Corpuscular Volume 79.6 fL (80-100); Mean Platelet Volume 9.2 fL (7.4-10.4); Monocytes # (auto) 0.37 K/uL (0.11-0.59); Monocytes % (auto) 5.1 %; Neutrophils # (auto) 5.22 K/uL (1.4-6.5); Neutrophils % (auto) 71.6 %; Platelet Count 269 K/uL (130-400); RDW Coefficient of Variation 16.3 % (11.5-14.5); RDW Standard Deviation 48.2 fL (36.4-46.3); Red Blood Count 3.14 M/uL (4.7-6.1); White Blood Count 7.29 K/uL (4.8-10.8)
--- NOTE | 2021-07-24 07:08 | Ultrasound Report ---
RENAL ULTRASOUND HISTORY: Acute and chronic kidney disease. COMPARISON: None. FINDINGS: Right kidney: 10.9 cm. No hydronephrosis. Difficult to visualize due to the patient's body habitus. T here are 2 hypoechoic foci measuring 2.5 and 3.3 cm in size. These appear to represent cysts with sma ll septations. Increased cortical echogenicity is noted. Left kidney: Not identified. Bladder: No bladder wall thickening. IMPRESSION: 1. Echogenic right kidney suggestive of chronic medical renal disease. 2. There are 2 similar-appearing complex cysts within the right kidney containing and septations with the largest measuring 3.3 cm. Follow-up recommended to ensure stability. 3. The left kidney was not visualized. ACT 112: Negative or not required by law. Electronically signed by: Dipesh Alcantara M.D. 07/24/2021 7:07 AM
[2021-07-24 07:22] LABS: Albumin Globulin Ratio 0.9 (0.9-2); Albumin Level 2.7 gm/dl (3.4-5.0); BUN Creatinine Ratio 9.3 (10-20); Bilirubin,Total 0.2 mg/dl (0.2-1.0); Calcium 7.1 mg/dl (8.5-10.1); Creatinine Clr Calc Pharmacy 13.2 ml/min; Est GFR (African American) 7.3 ml/min; Est GFR (Non-African American) 6.3 ml/min; Globulin 3.1 gm/dl (2.5-4.0); Magnesium 2.1 mg/dl (1.7-2.4); Potassium 5.4 mmol/L (3.5-5.1); Total Protein 5.8 gm/dl (6.0-8.3)
--- NOTE | 2021-07-24 08:01 | Cardiology Consultation ---
Date of Consultation July 24, 2021 Assessment & Plan (1) Cardiorenal syndrome with renal failure: (2) HFrEF (heart failure with reduced ejection fraction): (3) Hypertension: (4) Diabetes mellitus type 2 in obese: (5) CKD (chronic kidney disease): (6) Elevated troponin: (7) ICD (implantable cardioverter-defibrillator) in place: 55-year-old man with ischemic cardiomyopathy presents with mildly decompensated HFrEF and severe/progressive renal failure (creatinine increased from 7.71 to 8.51 overnight). He is significantly symptomatically improved after a 2 L diuresis and is clinically and hemodynamically stable currently. Suspect managing volume status will be very challenging. Echocardiogram shows moderate pulmonary hypertension but evidence of right heart underfilling and reduced central venous pressure. This finding along with his worsening renal function despite persistent neck vein elevation suggests that he has cor pulmonale and may require a significant preload to achieve optimal cardiac output and avoid renal hypoperfusion. BP was initially hypertensive, transitioned through borderline hypotension, now fairly normotensive. Basically, he is likely to be very sensitive to diuretics and will have a narrow range of ideal volume status. Since his chest x-ray is clear and he has no major dyspneic symptoms at rest, might reduce his furosemide to 80 mg once daily to reduce the risk of overdiuresis/worsening renal function. In detention, he has not been observing a low sodium diet, emphasized the importance of changing to a low-sodium diet upon discharge, since this will be the safest way to avoid heart failure while preserving kidney function. He apparently was on bumetanide 2 mg daily, ideally upon discharge his diuretic dose would be sliding scale based on daily weights, but I'm not sure how feasible this will be in detention. His minor troponin elevation with a flat curve in the context of significant renal impairment is not surprising and is not indicative of significant myocardial ischemia. Suspect his decompensation was more likely dietary indiscretion (not observing a low-sodium diet) and progression of his underlying ischemic cardiomyopathy. No immediate change in his vasoactive regimen of carvedilol and hydralazine, suspect his blood pressure will continue to vary based on his volume status. We'll continue to follow along. History of Present Illness Reason for Consultation: CHF/cardiorenal syndrome Requesting Physician: Bernice Fernandez MD Attending Physician: Armando Wall History of Present Illness 55-year-old man with ischemic cardiomyopathy (current EF 25-30%), HFrEF, status post ICD, diabetes mellitus, anemia, and chronic kidney disease who experienced progressive dyspnea, orthopnea, and leg edema over a 3-week timeframe and who was admitted 07/23/2021. Chest x-ray showed no significant infiltrates, but the patient appeared volume overloaded and was given IV chlorothiazide 250 mg and 2 doses of furosemide 80 mg yesterday and had a significant diuresis overnight (-1950). He feels significantly better this morning. He denied chest pain at any time and his troponin curve was minimally elevated and flat (in the context of creatinine 8.51). ECG showed sinus rhythm with minimal T wave inversions which did increase somewhat overnight. Echocardiogram shows ejection fraction 25 to 30% with severe global hypokinesis and anterior wall akinesis (with increased echogenicity, appears old), mild to moderate mitral regurgitation, and moderate pulmonary hypertension. Right heart actually appeared small and central venous pressure actually appeared reduced. There were no available medical records from prior to this hospital admission. At the time of my evaluation, patient was sitting comfortably and had no somatic complaints. Allergies Allergy/AdvReac Type Severity Reaction Status Date / Time No Known Allergies Allergy Unverified 07/23/21 14:15 Home Medications Medication Instructions Recorded Confirmed Type allopurinol 100 mg tablet 100 mg PO DAILY 07/23/21 07/23/21 History aspirin 81 mg tablet,delayed 81 mg PO DAILY 07/23/21 07/23/21 History release atorvastatin 80 mg tablet 80 mg PO HS 07/23/21 07/23/21 History bumetanide 2 mg tablet 2 mg PO BID 07/23/21 07/23/21 History carvedilol 25 mg tablet 50 mg PO BID 07/23/21 07/23/21 History docusate sodium 100 mg tablet 100 mg PO DAILY 07/23/21 07/23/21 History ferrous sulfate 325 mg (65 mg 325 mg PO Q2D 07/23/21 07/23/21 History iron) tablet furosemide 10 mg/mL injection 80 mg IV ONCE 07/23/21 07/23/21 History solution furosemide 80 mg tablet 80 mg PO BID 07/23/21 07/23/21 History glipizide 10 mg tablet 10 mg PO DAILY 07/23/21 07/23/21 History hydralazine 100 mg tablet 100 mg PO BID 07/23/21 07/23/21 History hydrochlorothiazide 25 mg tablet 25 mg PO DAILY 07/23/21 07/23/21 History insulin NPH isoph U-100 human 100 See Rx Instructions .ROUTE .COMPLEX 07/23/21 07/23/21 History unit/mL (3 mL) subcutaneous pen (Novolin N Flexpen) insulin regular human 100 unit/mL 1 sliding scale dose SUBCUT 07/23/21 07/23/21 History (3 mL) subcutaneous pen (Novolin R USEASDIRECTD Flexpen) losartan 100 mg tablet 100 mg PO DAILY 07/23/21 07/23/21 History Patient History Medical History Anemia CKD (chronic kidney disease) Diabetes mellitus type 2 in obese Gout HFrEF (heart failure with reduced ejection fraction) Hypertension Obesity Surgical History (Updated 07/24/21 @ 08:06 by Vishnu Babcock MD) ICD (implantable cardioverter-defibrillator) in place Family History Denies family history of Congenital kidney disease Social History Smoking Status: Never smoker Hx Alcohol Use: No Hx Substance Use: No Preferred Language: Kisw[employer] 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 Afebrile. Normotensive. Pulse 84 bpm and regular. Skin: no ecchymoses or generalized lesions. HEENT: unremarkable. Neck: Jugular venous pulse mcc to the angle of the jaw at 90 degrees, no ca rotid bruits. Lungs: clear bilaterally. No crackles, wheezing, or accessory muscle use. Cardiac: regular rhythm, 2/6 holosystolic murmur heard only in the axilla, no diastolic murmur. Hello Sadiq low Abdomen: benign. Extremities: 1+ pretibial pitting edema, pulses intact. Neurologic: normal affect and conversation, nonfocal. Results & Data ([facility]) Vital Signs (Past 12 Hours) Vital Signs Temp Pulse Pulse Resp BP Pulse Ox 07/24/21 04:23 98.6 F 85 18 108/69 91 07/24/21 02:00 93 H 07/23/21 23:05 98.2 F 95 H 20 101/65 94 Laboratory Results Troponin 0.07 with flat curve on 3 draws. BNP 569 Hemoglobin 8.7 Sodium 134, chloride 105, potassium 5.4, BUN 79, creatinine 8.51. Diagnostic Findings Initial ECG showed sinus rhythm with diffuse nonspecific T wave abnormality. ECG today shows sinus rhythm with more pronounced anterior and new inferior T wave inversions. Chest x-ray showed no acute disease. Echocardiogram as noted in HPI. PG Care Time/CCT Total # of Minutes Spent Total Time Spent with Patient: Total time spent is greater than 50% in coordination of care (as documented) at patient's floor/unit and/or counseling patient: Coding Level of Care Code 30884 Inpt Consult Level 4 Diagnoses Cardiorenal syndrome with renal failure I13.10 HFrEF (heart failure with reduced ejection fraction) I50.20 Hypertension I10 Diabetes mellitus type 2 in obese E11.69; E66.9 CKD (chronic kidney disease) N18.9 Elevated troponin R77.8 ICD (implantable cardioverter-defibrillator) in place Z95.810
--- NOTE | 2021-07-24 08:29 | Electrocardiogram Report ---
Test Reason : Blood Pressure : / mmHG Vent. Rate : 081 BPM Atrial Rate : 081 BPM P-R Int : 178 ms QRS Dur : 098 ms QT Int : 424 ms P-R-T Axes : 071 017 237 degrees QTc Int : 492 ms Normal sinus rhythm Prolonged QT Abnormal ECG When compared with ECG of 23-JUL-2021 12:48, T wave inversion now evident in Inferior leads T wave inversion now evident in Anterior leads Confirmed by Vishnu Babcock ([id number]) on 07/24/2021 8:29:28 AM Referred By: [facility] Confirmed By:Vishnu Babcock
[2021-07-24] MEDS ORDERED: PATIROMER CALCIUM SORBITEX 8.4 GM PACK PO ONE (08:52)
[2021-07-24] MEDS: INSULIN ASPART PER UNIT SC SCH ×4 (08:53→20:51)
--- NOTE | 2021-07-24 09:07 | XCELERA ---
[id number]
[2021-07-24] MEDS: ISOSORBIDE MONO EXTENDED REL 30 MG TABCR PO SCH (09:21)
[2021-07-24] MEDS: carvediloL 25 MG TAB PO SCH ×2 (09:22→20:32)
[2021-07-24] MEDS: allopurinoL 100 MG TAB PO SCH (09:22)
[2021-07-24] MEDS: hydrALAZINE TAB 50 MG TAB PO SCH ×3 (09:22→20:31)
[2021-07-24] MEDS: ASPIRIN 81 MG ECTAB PO SCH (09:22)
[2021-07-24] MEDS: FERROUS SULFATE 325 MG TAB PO SCH (09:23)
[2021-07-24] MEDS: DOCUSATE SODIUM 100 MG CAP PO SCH (09:32)
--- NOTE | 2021-07-24 11:49 | Nephrology Progress Note ---
Date of Service July 24, 2021 Assessment & Plan (1) Acute kidney injury: (2) Hyperkalemia: Plan: YEN with CKD, unknown baseline, UA with 3 + P, 1+ hematuria, USG atrophic rt kidney, ? absent left kidney, pending old records. Rapid worsening of renal function, net negative, elevated K, received [place]. --hold diuretics, monitor intake/output, electrolytes,low K diet --check CPK --consider serology, however, wait for previously Nephrology eval records --may need [employer] in next 1/2 days if no improvement in renal function Admission and Anticipated Discharge Date Admission Date: July 23, 2021 Subjective Pt was not seen in person, clinical data, labs, vitals reviewed, discussed with primary team. Overall clinically stable, no acute overnight events but rapid decline in kidney function, cr >8, K slightly elevated, decent UO, net negative >1.2 L, BP acceptable. Results & Data ([facility]) Vital Signs (Past 12 Hours) Vital Signs Temp Pulse Pulse Resp BP BP Pulse Ox 07/24/21 07:56 36.8 C 86 18 121/59 L 95 07/24/21 04:23 37.0 C 85 18 108/69 91 07/24/21 02:00 93 H PG Care Time/CCT Total # of Minutes Spent Total Time Spent with Patient: Total time spent is greater than 50% in coordination of care (as documented) at patient's floor/unit and/or counseling patient: Coding Level of Care Code 10359 Subseq Hosp Care Lvl 2 Diagnoses Acute kidney injury N17.9 Hyperkalemia E87.5
[2021-07-24 14:51] LABS: Creatinine Urine Random 52.4 mg/dl; Protein Creatinine Ratio Urine 4.5 (0-0.2); Total Protein Urine Random 236.3 mg/dl (0-11.9)
--- NOTE | 2021-07-24 18:46 | Hospitalist Progress Note ---
Date of Service July 24, 2021 Assessment & Plan (1) Cardiorenal syndrome with renal failure: Plan: Severe systolic CHF along with severe renal failure - baseline creatinine unknown. s/p IV thiazide and IV lasix with good response to such overnight. however, creatinine worsened, and K jorge again. appreciate both cardiology and nephrology consultations today. pt's volume status is not severely volume overloaded today, and given the rising Cr, holding additional diuretics today repeat exam tomorrow repeat BMP am records from [facility] in [place] requested (2) CKD (chronic kidney disease): Plan: Unknown stage, but was seen by nephrology in 2020 in [place] and told he may need dialysis in 3-4 years?? this would suggest his creatinine at that time was between 1.5 and 3 based on my best estimation?? await records to see what labs were like in 2020 renal u/s without obstruction significant nephropathy based on 3+ protein on u/a and high urine Protein/Cr ratio likely diabetic nephropoathy and/or HTN nephrosclerosis - or both either way his high creatinine is highly concerning and he remains at high risk of needing HD in near-future appreciate Dr Isaac's consult & recs (3) HFrEF (heart failure with reduced ejection fraction): Plan: Previously followed with cardiology at [facility] in [place] Has a long-standing ICD, with one exchange of the device since the original implantation Will request interrogation Will request previous cardiology records echo here noted - EF 25-30% global hypokinesis with septal akinesis s/p diuresis overnight for volume overload cont coreg no diuretics today BMP am ARB stopped Cont hydralazine TID Added imdur 30mg daily for afterload reduction Appreciate cardiology/nephrology recommendations given his renal function high likelihood of needing HD to control his fluid status (4) Elevated troponin: Plan: no evidence of ACS trop elevation likely demand ischemia in setting of decompensated CHF OR it is high from his severely impaired renal function echo noted - septal akinesis (previous NH??) awaiting records from [place] (5) Abnormal ECG: Plan: T wave inversions anterolateral Ischemia is not ruled out although no typical symptoms for such at this time No mention of heart cath in the past?? (6) Hyperkalemia: Plan: 2nd to severe renal impairment Veltassa PO x 1 repeat BMP am (7) Anemia: Plan: Hemoglobin 9.0, MCV low at 80 Transferrin sat 11% ferritin wnl IV venofer management per nephrology Anemia appears most c/w ACD from CKD Folate wnl check b12 level TSH wnl CBC in am (8) Hypertension: Plan: Cont coreg Cont hydralazine - this was increased to 100mg TID at admission Cont imdur 30mg daily - this was started at admission Holding all diuretics including Bumex, furosemide, HCTZ ARB discontinued due to severe renal impairment, hyperkalemia, etc. (9) Gout: Plan: No acute issues Continue home allopurinol which is renally dosed (10) Diabetes mellitus type 2 in obese: Plan: Lantus 8 units SQ at bedtime novolog SSI a1c pending adjust insulins as needed (11) Obesity: Plan: MORBID Obesity, BMI 40-45 (12) ICD (implantable cardioverter-defibrillator) in place: Plan: s/p implantation sometime between 1999 and 2009 then had device exchanged consider interrogation while here (13) Proteinuria: Plan: 3+ protein on u/a urine protein/Cr ratio elevated likely diabetic nephropathy or hypertensive nephrosclerosis - or both now with significant renal failure as above nephrology assistance appreciated Plan: DVT prophylaxis - heparin SC Admission and Anticipated Discharge Date Admission Date: July 23, 2021 Subjective pt w/o complaints during my visit he states his breathing is more comfortable today than yesterday although still getting dyspneic with just walking in the room LE edema is improved overnight he is poor historian; initially could not tell me who he followed with in [place] for his medical issues (was in alf in [facility], then transferred to our local [facility]) finally he said "I see the [facility]" with respect to nephrology - he is not certain who he saw or when he saw nephrology in [facility] he stated "they told me maybe in 3-4 years I would need dialysis" he does not recall a specific creatinine level we discussed his advanced CHF and his current creatinine; explained high risk of needing dialysis he replied "I have a strong shannon; everything will be fine; I'm thinking positively" tele overnight wnl Review of Systems Review of Systems: gen - appetite wnl cv - no orthopnea today; no cp pulm - no dyspnea at rest; +GROVE GI - no pain Physical Exam Physical Exam: gen - obese, NAD neck - mild JVD mouth - MMM heart - RRR, s1 s2 lungs - decreased BS bases, no rales or wheeze abd - soft NT ND BS+ ext - <1+ edema b/l, pulses 2+ b/l Results & Data Results & Data ([facility]) Vital Signs (Past 12 Hours) Vital Signs Temp Pulse Resp BP Pulse Ox 07/24/21 16:16 36.5 C 78 18 100/62 94 07/24/21 11:44 36.7 C 85 19 115/75 94 07/24/21 07:56 36.8 C 86 18 121/59 L 95 Laboratory Results Laboratory Results - last 24 hr 07/23/21 07/23/21 07/24/21 18:30 20:22 00:46 WBC RBC Hgb Hct MCV MCH MCHC RDW Std Deviation RDW Coeff of Emily Plt Count MPV Immature Gran % (Auto) Neut % (Auto) Lymph % (Auto) Bowman % (Auto) Eos % (Auto) Baso % (Auto) Neut # (Auto) Lymph # (Auto) Bowman # (Auto) Eos # (Auto) Baso # (Auto) Immature Gran # (Auto) Sodium Potassium Chloride Carbon Dioxide Anion Gap BUN Creatinine Est Cr Clr Drug Dosing Est GFR ( Amer) Est GFR (Non-Af Amer) BUN/Creatinine Ratio Glucose POC Glucose 145 H Estimat Average Glucose Hemoglobin A1c Hgb A1c Pathologist Com Calcium Magnesium Total Bilirubin AST ALT Alkaline Phosphatase Total Creatine Kinase Troponin I 0.07 H* Total Protein Albumin Globulin Albumin/Globulin Ratio Ur Random Creatinine U Random Total Protein Protein/Creatinin Ratio Nasal Screen MRSA (PCR) Negative 07/24/21 07/24/21 07/24/21 05:59 05:59 05:59 WBC 7.29 RBC 3.14 L Hgb 8.7 L Hct 25.0 L MCV 79.6 L MCH 27.7 MCHC 34.8 RDW Std Deviation 48.2 H RDW Coeff of Emily 16.3 H Plt Count 269 MPV 9.2 Immature Gran % (Auto) 0.1 Neut % (Auto) 71.6 Lymph % (Auto) 21.3 Bowman % (Auto) 5.1 Eos % (Auto) 1.8 Baso % (Auto) 0.1 Neut # (Auto) 5.22 Lymph # (Auto) 1.55 Bowman # (Auto) 0.37 Eos # (Auto) 0.13 Baso # (Auto) 0.01 Immature Gran # (Auto) 0.01 Sodium 134 L Potassium 5.4 H Chloride 105 Carbon Dioxide 20 L Anion Gap 9 BUN 79 H Creatinine 8.51 H* D Est Cr Clr Drug Dosing 13.2 Est GFR ( Amer) 7.3 Est GFR (Non-Af Amer) 6.3 BUN/Creatinine Ratio 9.3 L Glucose 168 H POC Glucose Estimat Average Glucose Pending Hemoglobin A1c Pending Hgb A1c Pathologist Com Pending Calcium 7.1 L Magnesium 2.1 Total Bilirubin 0.2 AST 8 L ALT 10 Alkaline Phosphatase 64 Total Creatine Kinase Troponin I Total Protein 5.8 L Albumin 2.7 L Globulin 3.1 Albumin/Globulin Ratio 0.9 Ur Random Creatinine U Random Total Protein Protein/Creatinin Ratio Nasal Screen MRSA (PCR) 07/24/21 07/24/21 07/24/21 05:59 07:43 11:24 WBC RBC Hgb Hct MCV MCH MCHC RDW Std Deviation RDW Coeff of Emily Plt Count MPV Immature Gran % (Auto) Neut % (Auto) Lymph % (Auto) Bowman % (Auto) Eos % (Auto) Baso % (Auto) Neut # (Auto) Lymph # (Auto) Bowman # (Auto) Eos # (Auto) Baso # (Auto) Immature Gran # (Auto) Sodium Potassium Chloride Carbon Dioxide Anion Gap BUN Creatinine Est Cr Clr Drug Dosing Est GFR ( Amer) Est GFR (Non-Af Amer) BUN/Creatinine Ratio Glucose POC Glucose 155 H 154 H Estimat Average Glucose Hemoglobin A1c Hgb A1c Pathologist Com Calcium Magnesium Total Bilirubin AST ALT Alkaline Phosphatase Total Creatine Kinase 339 H Troponin I Total Protein Albumin Globulin Albumin/Globulin Ratio Ur Random Creatinine U Random Total Protein Protein/Creatinin Ratio Nasal Screen MRSA (PCR) 07/24/21 07/24/21 16:07 Unknown WBC RBC Hgb Hct MCV MCH MCHC RDW Std Deviation RDW Coeff of Emily Plt Count MPV Immature Gran % (Auto) Neut % (Auto) Lymph % (Auto) Bowman % (Auto) Eos % (Auto) Baso % (Auto) Neut # (Auto) Lymph # (Auto) Bowman # (Auto) Eos # (Auto) Baso # (Auto) Immature Gran # (Auto) Sodium Potassium Chloride Carbon Dioxide Anion Gap BUN Creatinine Est Cr Clr Drug Dosing Est GFR ( Amer) Est GFR (Non-Af Amer) BUN/Creatinine Ratio Glucose POC Glucose 139 H Estimat Average Glucose Hemoglobin A1c Hgb A1c Pathologist Com Calcium Magnesium Total Bilirubin AST ALT Alkaline Phosphatase Total Creatine Kinase Troponin I Total Protein Albumin Globulin Albumin/Globulin Ratio Ur Random Creatinine 52.4 U Random Total Protein 236.3 H Protein/Creatinin Ratio 4.5 H Nasal Screen MRSA (PCR) PG Care Time/CCT Total # of Minutes Spent Total Time Spent with Patient: Total time spent is greater than 50% in coordination of care (as documented) at patient's floor/unit and/or counseling patient: Coding Level of Care Code 00350 Subseq Hosp Care Lvl 3 Diagnoses Cardiorenal syndrome with renal failure I13.10 CKD (chronic kidney disease) N18.9 Chronic kidney disease stage: unspecified stage HFrEF (heart failure with reduced ejection fraction) I50.20 Elevated troponin R77.8 Abnormal ECG R94.31 Hyperkalemia E87.5 Anemia D64.9 Hypertension I10 Gout M10.9 Diabetes mellitus type 2 in obese E11.69; E66.9 Obesity E66.9 ICD (implantable cardioverter-defibrillator) in place Z95.810 Proteinuria R80.9 (1) CKD (chronic kidney disease) Chronic kidney disease stage: unspecified stage Qualified Code(s): N18.9 - Chronic kidney disease, unspecified
[2021-07-24] MEDS: ATORVASTATIN 40 MG TAB PO SCH (20:30)
[2021-07-24] MEDS: INSULIN GLARGINE SOLOSTAR 100 UNITS/ML 3 ML PEN SC SCH (20:51)
[2021-07-25] MEDS: HEPARIN SOD 5,000 UNIT/0.5 ML VIAL SQ SCH ×3 (05:19→21:02)
[2021-07-25 06:36] LABS: Hemoglobin 8.2 g/dL (14.0-18.0); Mean Corpuscular Hgb Conc 32.8 g/dL (32-36); Mean Corpuscular Volume 79.4 fL (80-100); Mean Platelet Volume 9.1 fL (7.4-10.4); Platelet Count 282 K/uL (130-400); RDW Coefficient of Variation 16.3 % (11.5-14.5); RDW Standard Deviation 47.2 fL (36.4-46.3); Red Blood Count 3.15 M/uL (4.7-6.1); White Blood Count 8.33 K/uL (4.8-10.8)
[2021-07-25 07:20] LABS: BUN Creatinine Ratio 9.5 (10-20); Calcium 7.9 mg/dl (8.5-10.1); Creatinine Clr Calc Pharmacy 12.5 ml/min; Est GFR (African American) 7.1 ml/min; Est GFR (Non-African American) 6.1 ml/min; Potassium 4.9 mmol/L (3.5-5.1)
[2021-07-25] MEDS: INSULIN ASPART PER UNIT SC SCH ×4 (08:17→21:02)
[2021-07-25] MEDS: allopurinoL 100 MG TAB PO SCH (08:31)
[2021-07-25] MEDS: ASPIRIN 81 MG ECTAB PO SCH (08:31)
[2021-07-25] MEDS: carvediloL 25 MG TAB PO SCH ×2 (08:31→21:03)
[2021-07-25] MEDS: hydrALAZINE TAB 50 MG TAB PO SCH ×3 (08:32→21:03)
[2021-07-25] MEDS: ISOSORBIDE MONO EXTENDED REL 30 MG TABCR PO SCH (08:32)
[2021-07-25] MEDS: DOCUSATE SODIUM 100 MG CAP PO SCH (08:37)
--- NOTE | 2021-07-25 09:01 | Cardiology Progress Note ---
Date of Service July 25, 2021 Assessment & Plan (1) Cardiorenal syndrome with renal failure: (2) HFrEF (heart failure with reduced ejection fraction): (3) Hypertension: (4) Diabetes mellitus type 2 in obese: (5) CKD (chronic kidney disease): (6) Elevated troponin: (7) ICD (implantable cardioverter-defibrillator) in place: Plan: Patient appears euvolemic or only minimally hypervolemic after presenting with decompensated CHF treated successfully with IV diuretics. He apparently had been on 2 mg bumetanide daily as outpatient, could resume this but include option to increase to 3 mg daily for any weight gain behind his current near euvolemic weight. Certainly, there is room for improvement with his salt/sodium intake. Essential that he be placed on a low-sodium diet as outpatient. Renal function remains borderline, however since he is markedly clinically improved and does not require ongoing aggressive diuresis, there is a reasonable chance that he can avoid dialysis in the short-term. Defer to nephrology regarding preparations for future dialysis (which appears inevitable). BP normotensive on current vasoactive regimen. Minor troponin elevation in the context of renal failure without peak and decay is inconsequential. No new cardiology recommendations. Admission and Anticipated Discharge Date Admission Date: July 23, 2021 Subjective Patient slept well, comfortably lying flat this morning. He denies any dyspnea, orthopnea, or PND. No chest pain, palpitations, or lightheadedness. Input/output -710 mL Bed scale weight not reliable (listed as 12 pounds less than yesterday). Telemetry showed sinus rhythm in the 80-90 bpm range. Physical Exam Physical Exam: No distress. Normotensive. Pulse 88 bpm and regular. Skin: no ecchymoses or generalized lesions. HEENT: unremarkable. Neck: Jugular venous pulse 1/3 way to the angle of the jaw at 90 degrees, no carotid bruits. Lungs: clear bilaterally. No crackles, wheezing, or accessory muscle use. Cardiac: regular rhythm, 2/6 holosystolic murmur heard only in the axilla, no diastolic murmur. Abdomen: benign. Extremities: 1+ pretibial pitting edema, pulses intact. Neurologic: normal affect and conversation, nonfocal. Results & Data ([facility]) Vital Signs (Past 12 Hours) Vital Signs Temp Pulse Pulse Resp BP Pulse Ox 07/25/21 06:16 98.1 F 88 16 112/67 92 07/25/21 05:00 92 H 07/24/21 23:32 98.4 F 94 H 16 133/75 93 07/24/21 20:23 98.2 F 87 16 128/74 94 Laboratory Results Normal electrolytes, BUN 83, creatinine 8.73 (8.51 yesterday). Diagnostic Findings ECG showed sinus rhythm with anterior and lateral T wave inversions, compared with yesterday inferior T wave inversions no longer present. PG Care Time/CCT Total # of Minutes Spent Total Time Spent with Patient: Total time spent is greater than 50% in coordination of care (as documented) at patient's floor/unit and/or counseling patient: Coding Level of Care Code 69114 Subseq Hosp Care Lvl 3 Diagnoses Cardiorenal syndrome with renal failure I13.10 HFrEF (heart failure with reduced ejection fraction) I50.20 Hypertension I10 Diabetes mellitus type 2 in obese E11.69; E66.9 CKD (chronic kidney disease) N18.9 Chronic kidney disease stage: unspecified stage Elevated troponin R77.8 ICD (implantable cardioverter-defibrillator) in place Z95.810 (1) CKD (chronic kidney disease) Chronic kidney disease stage: unspecified stage Qualified Code(s): N18.9 - Chronic kidney disease, unspecified
--- NOTE | 2021-07-25 10:26 | Hospitalist Progress Note ---
Date of Service July 25, 2021 Assessment & Plan (1) Cardiorenal syndrome with renal failure: Plan: Severe systolic CHF along with severe renal failure - baseline creatinine unknown. s/p IV thiazide and IV lasix with good response to such on the first night of admission however, creatinine worsened, and K jorge again, diuretics held Creatinine now has trended upward to 8.7, BUN up to 83, is with an anion gap metabolic acidosis with serum bicarbonate of 17, volume overloaded but that has improved somewhat. Hyperkalemia has improved also with treatment with Veltassa. Blood pressures are stable, continues to be making urine. appreciate both cardiology and nephrology consultations records from [facility] in [place] requested but not received yet He is approaching the need for dialysis. I broached this topic with him and he is quite anxious about it would like to discuss it with his family prior to proceeding. On Monday, I will contact the long term and see if I can get permission to speak with his family as a liaison as the patient is not allowed to call his himself -Start sodium bicarbonate 650 mg p.o. twice daily -Received Veltassa p.o. x1 -Giving IV Venofer second dose today for anemia -Blood pressure control as below -Continue holding home ARB, diuretics -Continue low-sodium, low potassium/renal diet -Follow BMP in the morning -Follow urine output -Checking serologies for renal failure to include SHAWNA, ANCA, complement, free kappa lambda light chain, glomerular basement membrane antibody, phospholipase A2 receptor antibody, UPEP, SPEP (2) CKD (chronic kidney disease): Plan: Unknown stage, but was seen by nephrology in 2020 in [place] and told he may need dialysis in 3-4 years?? this would suggest his creatinine at that time was between 1.5 and 3 based on my best estimation?? await records to see what labs were like in 2020, but regardless, he is at the point of needing dialysis as above renal u/s without obstruction significant nephropathy based on 3+ protein on u/a and high urine Protein/Cr ratio likely diabetic nephropathy and/or HTN nephrosclerosis - or both Appreciate nephrology consultation (3) HFrEF (heart failure with reduced ejection fraction): Plan: Previously followed with cardiology at [facility] in [place] Has a long-standing ICD, with one exchange of the device since the original implantation Will request interrogation-was unable to be performed yesterday due to downtime with the pacer company Will request previous cardiology records-have not arrived yet echo here noted - EF 25-30% global hypokinesis with septal akinesis s/p diuresis upon admission for volume overload, but held for rising creatinine as above cont coreg no diuretics today BMP am ARB stopped Cont hydralazine TID Added imdur 30mg daily for preload and afterload reduction Appreciate cardiology/nephrology recommendations given his renal function high likelihood of needing HD to control his fluid status (4) Elevated troponin: Plan: no evidence of ACS trop elevation 0.07/0.07/0.07 likely demand ischemia in setting of decompensated CHF OR it is high from his severely impaired renal function echo noted - septal akinesis (previous [place]??) Although patient thinks he had a cardiac catheterization many years ago and was told there was no blockages. He has no history of cardiac stents that he knows of awaiting records from [place] (5) Abnormal ECG: Plan: T wave inversions anterolateral Ischemia is not ruled out although no typical symptoms for such at this time (6) Hyperkalemia: Plan: 2nd to severe renal impairment, now improved Received Veltassa PO x 1, continue as needed Starting sodium bicarbonate repeat BMP am (7) Anemia: Plan: Hemoglobin 8.2-9.0, MCV low at 80 Transferrin sat 11% ferritin wnl IV venofer given on day of admission, will give second dose on 07/25 Anemia appears most c/w ACD from CKD Folate wnl B12 level normal TSH wnl CBC in am Continue p.o. ferrous sulfate (8) Hypertension: Plan: Blood pressures are now much better controlled with changes Cont coreg Cont hydralazine - this was increased to 100mg TID at admission Cont imdur 30mg daily - this was started at admission Holding all diuretics including Bumex, furosemide, HCTZ ARB discontinued due to severe renal impairment, hyperkalemia, etc. (9) Gout: Plan: No acute issues Continue home allopurinol which is renally dosed (10) Diabetes mellitus type 2 in obese: Plan: Blood sugars here fairly well controlled Continue Lantus 8 units SQ at bedtime novolog SSI a1c pending adjust insulins as needed (11) Obesity: Plan: MORBID Obesity, BMI 40-45 Needs weight loss (12) ICD (implantable cardioverter-defibrillator) in place: Plan: s/p implantation in 2006 then had device exchanged at some point since then he thinks about 10 years later Ordered interrogation while here-pending Cardiology following In sinus rhythm with 4 beat run of VT on telemetry in the last 24 hours (13) Proteinuria: Plan: 3+ protein on u/a urine protein/Cr ratio elevated likely diabetic nephropathy or hypertensive nephrosclerosis - or both now with significant renal failure as above nephrology assistance appreciated Previously on losartan but now held as above Plan: DVT prophylaxis - heparin SC Disposition-continued stay in PCU Admission and Anticipated Discharge Date Admission Date: July 23, 2021 Subjective Patient reports feeling better, he is able to lie flat without shortness of br eath, and ambulates to the toilet and back without much difficulty. Feels his leg swelling is down. No chest pain. I broached the topic of possibility of dialysis in the near future and he became very anxious and seemed distrustful. Says that he is not ready to start dialysis as he feels that that would increase his chances for and he wants to discuss this with his family prior to starting. However, his long term guards note that he is not allowed to call his family from the hospital. This presents a dilemma. I discussed his care with the product sales representative who is also concerned that he might need dialysis in the next 1 to 2 days. The patient said that if he is in a near situation, he would accept dialysis urgently. Telemetry with normal sinus rhythm, rates 80s to 90s, 4 beat run of V. tach Review of Systems Review of Systems: All systems reviewed & are unremarkable except as noted in HPI & below Has not moved his bowels since admission Physical Exam Constitutional: WD/WN, vitals as above + morbidly obese; no acute distress Eyes: + anicteric sclerae ENMT: external ear and nose normal, oropharynx normal Neck: trachea midline, no thyromegaly Respiratory: normal respiratory effort, lungs clear to auscultation Cardiovascular: Rate/Rhythm: regular rate and regular rhythm Heart Sounds: no murmur Extremities: + edema (1+ pitting edema to the knees bilaterally, markedly improved) Chest (Breasts): Chest: normal inspection of chest Gastrointestinal (Abdomen): normal bowel sounds, soft, nontender, no hepatosplenomegaly Musculoskeletal: Extremities: extremities normal to inspection; no cyanosis and no clubbing Skin: no rashes, warm and dry Neurologic: moves all extremities and awake; no focal motor deficits Psychiatric: Orientation: alert, oriented x 3 and cooperative Affect: + anxious affect Results & Data Results & Data ([facility]) Vital Signs (Past 12 Hours) Vital Signs Temp Pulse Pulse Resp BP BP Pulse Ox 07/25/21 08:00 37 C 90 18 113/70 93 07/25/21 06:16 36.7 C 88 16 112/67 92 07/25/21 05:00 92 H 07/24/21 23:32 36.9 C 94 H 16 133/75 93 Laboratory Results 07/25/21 07/25/21 07/25/21 Range/Units 12:45 11:20 07:39 WBC (4.8-10.8) K/uL RBC (4.7-6.1) M/uL Hgb (14.0-18.0) g/dL Hct (42-52) % MCV (80-100) fL MCH (25-34) pg MCHC (32-36) g/dL RDW Std Deviation (36.4-46.3) fL RDW Coeff of Emily (11.5-14.5) % Plt Count (130-400) K/uL MPV (7.4-10.4) fL Sodium (136-145) mmol/L Potassium (3.5-5.1) mmol/L Chloride (98-107) mmol/L Carbon Dioxide (21-32) mmol/L Anion Gap (3-11) BUN (6-23) mg/dl Creatinine (0.6-1.4) mg/dl Est Cr Clr Drug Dosing ml/min Est GFR ( Amer) ml/min Est GFR (Non-Af Amer) ml/min BUN/Creatinine Ratio (10-20) Glucose (70-99(Fasting)) mg/dl POC Glucose 159 H 139 H (70-99) mg/dl Calcium (8.5-10.1) mg/dl Vitamin B12 (180-914) pg/ml SHAWNA Screen Pending Anti-Proteinase 3 Pending Anti-Myeloperoxidase Pending ANCA Pending Glomerular Base Memb Ab Pending Complement C3 Pending Complement C4 Pending Free [place] LC, Quant Pending Free Lambda LC, Quant Pending Free [place]/Lambda Ratio Pending Phospholip A2 Rec IFA Pending Phospholip A2 Rec TANNA Pending 07/25/21 07/25/21 07/25/21 Range/Units 06:20 06:20 06:20 WBC 8.33 (4.8-10.8) K/uL RBC 3.15 L (4.7-6.1) M/uL Hgb 8.2 L (14.0-18.0) g/dL Hct 25.0 L (42-52) % MCV 79.4 L (80-100) fL MCH 26.0 (25-34) pg MCHC 32.8 (32-36) g/dL RDW Std Deviation 47.2 H (36.4-46.3) fL RDW Coeff of Emily 16.3 H (11.5-14.5) % Plt Count 282 (130-400) K/uL MPV 9.1 (7.4-10.4) fL Sodium 137 (136-145) mmol/L Potassium 4.9 (3.5-5.1) mmol/L Chloride 107 (98-107) mmol/L Carbon Dioxide 17 L (21-32) mmol/L Anion Gap 13 H (3-11) BUN 83 H (6-23) mg/dl Creatinine 8.73 H* (0.6-1.4) mg/dl Est Cr Clr Drug Dosing 12.5 ml/min Est GFR ( Amer) 7.1 ml/min Est GFR (Non-Af Amer) 6.1 ml/min BUN/Creatinine Ratio 9.5 L (10-20) Glucose 117 H (70-99(Fasting)) mg/dl POC Glucose (70-99) mg/dl Calcium 7.9 L (8.5-10.1) mg/dl Vitamin B12 633 (180-914) pg/ml SHAWNA Screen Anti-Proteinase 3 Anti-Myeloperoxidase ANCA Glomerular Base Memb Ab Complement C3 Complement C4 Free [place] LC, Quant Free Lambda LC, Quant Free [place]/Lambda Ratio Phospholip A2 Rec IFA Phospholip A2 Rec TANNA 07/24/21 07/24/21 Range/Units 20:12 16:07 WBC (4.8-10.8) K/uL RBC (4.7-6.1) M/uL Hgb (14.0-18.0) g/dL Hct (42-52) % MCV (80-100) fL MCH (25-34) pg MCHC (32-36) g/dL RDW Std Deviation (36.4-46.3) fL RDW Coeff of Emily (11.5-14.5) % Plt Count (130-400) K/uL MPV (7.4-10.4) fL Sodium (136-145) mmol/L Potassium (3.5-5.1) mmol/L Chloride (98-107) mmol/L Carbon Dioxide (21-32) mmol/L Anion Gap (3-11) BUN (6-23) mg/dl Creatinine (0.6-1.4) mg/dl Est Cr Clr Drug Dosing ml/min Est GFR ( Amer) ml/min Est GFR (Non-Af Amer) ml/min BUN/Creatinine Ratio (10-20) Glucose (70-99(Fasting)) mg/dl POC Glucose 184 H 139 H (70-99) mg/dl Calcium (8.5-10.1) mg/dl Vitamin B12 (180-914) pg/ml SHAWNA Screen Anti-Proteinase 3 Anti-Myeloperoxidase ANCA Glomerular Base Memb Ab Complement C3 Complement C4 Free [place] LC, Quant Free Lambda LC, Quant Free [place]/Lambda Ratio Phospholip A2 Rec IFA Phospholip A2 Rec TANNA PG Care Time/CCT Total # of Minutes Spent Total Time Spent with Patient: Total time spent is greater than 50% in coordination of care (as documented) at patient's floor/unit and/or counseling patient: Coding Level of Care Code 64973 Subseq Hosp Care Lvl 3 Diagnoses Cardiorenal syndrome with renal failure I13.10 CKD (chronic kidney disease) N18.9 Chronic kidney disease stage: unspecified stage HFrEF (heart failure with reduced ejection fraction) I50.20 Elevated troponin R77.8 Abnormal ECG R94.31 Hyperkalemia E87.5 Anemia D64.9 Hypertension I10 Gout M10.9 Diabetes mellitus type 2 in obese E11.69; E66.9 Obesity E66.9 ICD (implantable cardioverter-defibrillator) in place Z95.810 Proteinuria R80.9 (1) CKD (chronic kidney disease) Chronic kidney disease stage: unspecified stage Qualified Code(s): N18.9 - Chronic kidney disease, unspecified
[2021-07-25] MEDS: IRON SUCROSE 300 MG in SODIUM CHLORIDE 0.9% 250 ML IV SCH (11:28)
--- NOTE | 2021-07-25 12:05 | Electrocardiogram Report ---
Test Reason : Blood Pressure : / mmHG Vent. Rate : 089 BPM Atrial Rate : 089 BPM P-R Int : 184 ms QRS Dur : 098 ms QT Int : 408 ms P-R-T Axes : 075 -07 194 degrees QTc Int : 496 ms Normal sinus rhythm Nonspecific ST abnormality Lateral leads Prolonged QT Abnormal ECG When compared with ECG of 24-JUL-2021 06:07, Nonspecific T wave abnormality has replaced inverted T waves in Inferior leads Confirmed by Vishnu Babcock ([id number]) on 07/25/2021 12:05:23 PM Referred By: [facility] Confirmed By:Vishnu Babcock
--- NOTE | 2021-07-25 12:30 | Nephrology Progress Note ---
Date of Service July 25, 2021 Assessment & Plan (1) Acute kidney injury: (2) Hyperkalemia: (3) Anemia: (4) Hypertension: (5) Proteinuria: Plan: YEN with CKD, Admitted with progressive shortness of breath, volume overload, respiratory status improved with IV diuretics with significant improvement in volume status. Unknown b/l, UA with 3 + P, 1+ hematuria, USG atrophic rt kidney, ? absent left kidney, pending old records. Rapid worsening of renal function, net negative, elevated K, received Veltassa. --Continue to monitor intake/output, electrolytes,low K diet --order serology --although there is rapid worsening of renal function, has metabolic acidosis, no acute indication for dialysis today but may need MIR[employer] MACH[employer]ER in next 1/2 days if no improvement in renal function or develop significant electrolyte abnormality. Discussed in detail, patient like to discuss with family before making decision regarding dialysis. Will follow Admission and Anticipated Discharge Date Admission Date: July 23, 2021 Leonie Palafox was seen and evaluated this am. Overall he is feeling better, denies further episode of shortness of breath, chest pain. Has been having decent urine output despite holding diuretics, net negative more than 700 mL. Hemoglobin dropped to 8.2. Rather rapid worsening of renal function, creatinine up to 8.7, BUN 83, bicarb 17. blood pressure has been fairly controlled. Review of Systems Review of Systems: Detailed review of system was otherwise unremarkable. Physical Exam Constitutional: WD/WN, vitals as above no acute distress Eyes: + anicteric sclerae Neck: normal visual inspection Respiratory: no respiratory distress Auscultation: lungs clear to auscultation bilaterally Cardiovascular: Rate/Rhythm: regular rate and regular rhythm Heart Sounds: normal S1 and normal S2 Extremities: no edema Skin: no rashes Neurologic: no focal motor deficits and not confused Psychiatric: Orientation: alert and oriented x 3 Results & Data ([facility]) Vital Signs (Past 12 Hours) Vital Signs Temp Pulse Pulse Resp BP BP Pulse Ox 07/25/21 12:10 36.7 C 84 20 109/67 93 07/25/21 08:00 37 C 90 18 113/70 93 07/25/21 06:16 36.7 C 88 16 112/67 92 07/25/21 05:00 92 H 07/24/21 23:32 36.9 C 94 H 16 133/75 93 PG Care Time/CCT Total # of Minutes Spent Total Time Spent with Patient: Total time spent is greater than 50% in coordination of care (as documented) at patient's floor/unit and/or counseling patient: Coding Level of Care Code 38626 Subseq Hosp Care Lvl 3 Diagnoses Acute kidney injury N17.9 Hyperkalemia E87.5 Anemia D64.9 Hypertension I10 Proteinuria R80.9
[2021-07-25] MEDS: SODIUM BICARBONATE 650 MG TAB PO SCH ×2 (13:16→21:02)
[2021-07-25] MEDS: ATORVASTATIN 40 MG TAB PO SCH (21:01)
[2021-07-25] MEDS: INSULIN GLARGINE SOLOSTAR 100 UNITS/ML 3 ML PEN SC SCH (21:02)
[2021-07-26] MEDS: HEPARIN SOD 5,000 UNIT/0.5 ML VIAL SQ SCH ×3 (05:42→21:21)
[2021-07-26 06:43] LABS: Hematocrit (blood only) 25.9 % (42-52); Hemoglobin 8.5 g/dL (14.0-18.0); Mean Corpuscular Hemoglobin 26.3 pg (25-34); Mean Corpuscular Hgb Conc 32.8 g/dL (32-36); Mean Corpuscular Volume 80.2 fL (80-100); Mean Platelet Volume 9.1 fL (7.4-10.4); Platelet Count 280 K/uL (130-400); RDW Coefficient of Variation 16.3 % (11.5-14.5); RDW Standard Deviation 48.2 fL (36.4-46.3); Red Blood Count 3.23 M/uL (4.7-6.1); White Blood Count 9.16 K/uL (4.8-10.8)
[2021-07-26 07:17] LABS: Albumin Level 2.9 gm/dl (3.4-5.0); BUN Creatinine Ratio 10.2 (10-20); Calcium 7.9 mg/dl (8.5-10.1); Creatinine Clr Calc Pharmacy 12.8 ml/min; Est GFR (African American) 7.2 ml/min; Est GFR (Non-African American) 6.2 ml/min; Phosphorus 6.3 mg/dl (2.5-4.9); Potassium 5.3 mmol/L (3.5-5.1)
[2021-07-26] MEDS: DOCUSATE SODIUM 100 MG CAP PO SCH (07:59)
[2021-07-26] MEDS: SODIUM BICARBONATE 650 MG TAB PO SCH ×2 (08:00→21:19)
[2021-07-26] MEDS: allopurinoL 100 MG TAB PO SCH (08:00)
[2021-07-26] MEDS: ASPIRIN 81 MG ECTAB PO SCH (08:00)
[2021-07-26] MEDS: hydrALAZINE TAB 50 MG TAB PO SCH ×4 (08:00→21:19)
[2021-07-26] MEDS: ISOSORBIDE MONO EXTENDED REL 30 MG TABCR PO SCH (08:00)
[2021-07-26] MEDS: carvediloL 25 MG TAB PO SCH ×2 (08:00→21:20)
[2021-07-26] MEDS ORDERED: EPOETIN ALFA 40,000 UNITS/ML VIAL SQ ONE (09:30)
[2021-07-26] MEDS: INSULIN ASPART PER UNIT SC SCH ×4 (09:49→21:22)
[2021-07-26] MEDS: FERROUS SULFATE 325 MG TAB PO SCH (09:53)
[2021-07-26] MEDS: IRON SUCROSE 300 MG in SODIUM CHLORIDE 0.9% 250 ML IV SCH (10:46)
[2021-07-26] MEDS: IRON SUCROSE 200 MG in 0.9 % SODIUM CHLORIDE 100 ML IV SCH (11:02)
--- NOTE | 2021-07-26 12:39 | Nephrology Progress Note ---
Date of Service July 26, 2021 Assessment & Plan (1) Acute kidney injury: (2) Hyperkalemia: (3) Anemia: (4) Hypertension: (5) Proteinuria: Plan: YEN with CKD, Admitted with progressive shortness of breath, volume overload, respiratory status improved with IV diuretics with significant improvement in volume status. Unknown b/l, UA with 3 + P, 1+ hematuria, USG atrophic rt kidney, ? absent left kidney, pending old records. Rapid worsening of renal function with multiple stigmata of advanced, end-stage renal disease including anemia, hyperkalemia, metabolic acidosis and hyperphosphatemia. Creatinine was around 3.5 in February 2021. -- had long discussion with patient this morning with Dr. Fernandez in room, advised against discharge with progressive worsening of renal function with multiple electrolyte abnormality and recommended preparation for starting on dialysis. He refused to make decision about dialysis without talking with his himself. Encouraged to make decision. --start on venofer, CASSI --start on Renvela 1 tab TIDM --Continue to monitor intake/output, electrolytes,low K diet Will follow Admission and Anticipated Discharge Date Admission Date: July 23, 2021 Leonie Palafox was seen and evaluated this am. Overall he is feeling fine, denies SOB, chest pain. Decent urine output despite holding diuretics. Hemoglobin 8.6. Progressive worsening of renal function, creatinine up to 8.6 BUN 883, bicarb 18, phos 6.3. Blood pressure has been fairly controlled. He was considering leaving hospital as he was not able to talk with his from hospital and refused to make X RAY OPERATOR decision without talking with his . Dr. Fernandez offered to talk with his but he wants to talk himself. Review of Systems Review of Systems: Detailed review of system was otherwise unremarkable. Physical Exam Constitutional: WD/WN, vitals as above no acute distress Eyes: + anicteric sclerae Neck: normal visual inspection Respiratory: no respiratory distress Auscultation: lungs clear to auscultation bilaterally Cardiovascular: Rate/Rhythm: regular rate and regular rhythm Heart Sounds: normal S1 and normal S2 Extremities: no edema Skin: no rashes Neurologic: no focal motor deficits and not confused Psychiatric: Orientation: alert and oriented x 3 Results & Data ([facility]) Vital Signs (Past 12 Hours) Vital Signs Temp Pulse Pulse Resp BP Pulse Ox 07/26/21 11:31 36.7 C 83 16 100/62 93 07/26/21 07:42 36.5 C 82 15 115/71 95 07/26/21 07:00 91 H 07/26/21 03:37 36.7 C 89 20 116/73 92 PG Care Time/CCT Total # of Minutes Spent Total Time Spent with Patient: Total time spent is greater than 50% in coordination of care (as documented) at patient's floor/unit and/or counseling patient: Coding Level of Care Code 63339 Subseq Hosp Care Lvl 3 Diagnoses Acute kidney injury N17.9 Hyperkalemia E87.5 Anemia D64.9 Hypertension I10 Proteinuria R80.9
[2021-07-26] MEDS: PATIROMER CALCIUM SORBITEX 8.4 GM PACK PO SCH (12:51)
[2021-07-26 13:52] LABS: Hepatitis B Surface Ab Quant > 1000.00 mIU/mL (>or=10mIU/mL Immune); Hepatitis B Surface Antibody Immune
[2021-07-26 14:02] LABS: Hepatitis B Surf Ag Rflx Conf Neg (Neg)
--- NOTE | 2021-07-26 16:07 | Cardiology Progress Note ---
Date of Service July 26, 2021 Assessment & Plan (1) Cardiorenal syndrome with renal failure: (2) HFrEF (heart failure with reduced ejection fraction): (3) Hypertension: (4) Diabetes mellitus type 2 in obese: (5) CKD (chronic kidney disease): (6) Elevated troponin: (7) ICD (implantable cardioverter-defibrillator) in place: Plan: Patient appears euvolemic after presenting with decompensated CHF treated successfully with IV diuretics. He's not currently getting any diuretics. Symptoms are stable. Would recommend standing scale weight if able. Low sodium diet. Strict I&Os. He apparently had been on 2 mg bumetanide daily as outpatient, could resume this but include option to increase to 3 mg daily for any weight gain behind his current near euvolemic weight. Essential that he be placed on a low-sodium diet as outpatient. Renal function declining, however he has been unable to make a decision regarding dialysis. Patient requesting second opinion in [place] and also waiting to talk to his . Will defer to nephrology. BP normotensive on current vasoactive regimen. Minor troponin elevation in the context of renal failure without peak and decay is inconsequential. Ef 25-30%. Long standing. Continue GDMT including Carvedilol 50 mg BID, Hydralazine + Isosorbide. Not on ACEI/ARB/ARNI due to kidney disease. Would also not recommend Spironolactone with CKD. He has an ICD. Disposition: Discussed the heart failure program today. If patient decides to proceed with dialysis we will defer volume management to the dialysis team. Will hold off on formal enrollment into the program until he decides. Admission and Anticipated Discharge Date Admission Date: July 23, 2021 Subjective Patient resting comfortably in bed during am rounds. He reports that he slept well. He was able to lay flat for part of the night but did elevate his head some eventually. He notes a coughing episode overnight which then resulted in improvement in his cough. His cough started again after his morning meds which concerns him. He denies shortness of breath at rest or conversation. He has not been ambulatory. He denies chest pain or palpitations. He's net negative 1.6 for the admission. Weight 286 lb per bed scale. Last dose of Lasix was 07/23/21. Renal function declining, now with worsening acidosis and electrolyte abnormalities. Telemetry reviewed- sinus in the 80s overnight. Physical Exam Physical Exam: No distress. Normotensive. Skin: no ecchymoses or generalized lesions. HEENT: unremarkable. Neck: Jugular venous pulse 1/3 way to the angle of the jaw at 90 degrees, difficult exam, no carotid bruits. Lungs: clear bilaterally. No crackles, wheezing, or accessory muscle use. Cardiac: regular rhythm, 2/6 holosystolic murmur heard only in the axilla, no diastolic murmur. Abdomen: benign. Extremities: Trace pretibial pitting edema, pulses intact. Neurologic: normal affect and conversation, nonfocal. Results & Data ([facility]) Vital Signs (Past 12 Hours) Vital Signs Temp Pulse Pulse Resp BP BP Pulse Ox 07/26/21 15:40 98.1 F 81 15 118/74 94 07/26/21 14:58 84 118/73 07/26/21 11:31 98.1 F 83 16 100/62 93 07/26/21 07:42 97.7 F 82 15 115/71 95 07/26/21 07:00 91 H PG Care Time/CCT Total # of Minutes Spent Total Time Spent with Patient: Total time spent is greater than 50% in coordination of care (as documented) at patient's floor/unit and/or counseling patient: Coding Level of Care Code 65569 Subseq Hosp Care Lvl 3 Diagnoses Cardiorenal syndrome with renal failure I13.10 HFrEF (heart failure with reduced ejection fraction) I50.20 Hypertension I10 Diabetes mellitus type 2 in obese E11.69; E66.9 CKD (chronic kidney disease) N18.9 Chronic kidney disease stage: unspecified stage Elevated troponin R77.8 ICD (implantable cardioverter-defibrillator) in place Z95.810 (1) CKD (chronic kidney disease) Chronic kidney disease stage: unspecified stage Qualified Code(s): N18.9 - Chronic kidney disease, unspecified
[2021-07-26] MEDS: SEVELAMER HCL 800 MG TABLET PO SCH (17:14)
--- NOTE | 2021-07-26 19:44 | Hospitalist Progress Note ---
Date of Service July 26, 2021 Assessment & Plan (1) Cardiorenal syndrome with renal failure: Plan: Severe systolic CHF along with severe renal failure - baseline creatinine was 3.4 in 02/2021 and 3.5 in 05/2021 as per assisted labs Creatinine was up to 8 on admission s/p IV thiazide and IV lasix with good response to such on the first night of admission however, creatinine worsened, and K jorge again, diuretics held Creatinine now has trended upward to 8.6, BUN up to 88, is with an anion gap metabolic acidosis, volume overloaded but that has improved somewhat. Hyperkalemia has improved also with treatment with Veltassa and sodium bicarbonate but remains mildly elevated. Blood pressures are stable, continues to be making urine. appreciate both cardiology and nephrology consultations records from [facility] in [place] requested but not received yet He is approaching the need for dialysis within the next 24 hours as per nephrology He is still very anxious about the prospect of dialysis and is adamant that he be able to speak to his and family about it prior to starting dialysis. I discussed his care and the need for dialysis in the very near future along with nephrology at the bedside. At 1 point, the patient became very irate with me and was yelling. After I was able to calm him down, he did tell me that he wanted to be discharged back to the assisted without receiving dialysis so that he would have the option to contact his . I did offer to call his for him as I had already received permission from the assisted to do so. He finally agreed for me to call his to discuss his care on 07/26. His and oldest son were on the phone and after a thorough discussion about his condition and the need for dialysis, the patient's and son were in agreement that the patient should proceed with dialysis. I went back to the patient's room to tell him what his and son had said, and he decided that he would stay overnight 1 more night check his blood work in the morning, and as long as his potassium was not critically elevated, he still is insisting that he be discharged back to the assisted tomorrow so that he can contact both his and his meter calibrator to discuss his current position. He then asked if he would be able to return to the hospital if he chooses to do dialysis after that and of course I agreed that this would be fine for him to return He definitely understands that he is at risk for if he does not receive dialysis in a timely fashion as recommended by leaving the hospital if he does not return within 24 hours -Follow renal panel in the morning -Barring no significant change in symptoms and no severe hyperkalemia, patient adamant that he be discharged back to the assisted on 07/27 -It will be necessary to contact to the assisted medical oncologist and update them on the patient's wishes to not start dialysis until after return to assisted so he can have a discussion with his family on the phone -He would then need to be transported back to the hospital for dialysis PermCath placement and to start dialysis as soon as possible after he makes his final decision if he chooses to pursue dialysis -If he chooses not to pursue dialysis, the assisted can continue current medical management and pursue hospice measures if the patient declines -Started sodium bicarbonate 650 mg p.o. twice daily -Continue daily Veltassa upon discharge -Has received 3 doses of IV Venofer for anemia as well as Epogen -Blood pressure control as below -Discontinued home ARB, HCTZ, bumetanide, and furosemide -Continue low-sodium, low potassium/renal diet -Follow BMP in the morning -Follow urine output -Checking serologies for renal failure to include SHAWNA, ANCA, complement, free kappa lambda light chain, glomerular basement membrane antibody, phospholipase A2 receptor antibody, UPEP, SPEP -Needs to start dialysis in the very near future -Start sevelamer 800 mg p.o. 3 times daily (2) CKD (chronic kidney disease): Plan: Unknown stage prior to 02/2021, but was seen by nephrology in 2020 in [place] and told he may need dialysis in 3-4 years Creatinine at the assisted on 02/2021 was 3.4 and was 3.5 in 05/2021 await records to see what labs were like in 2020, but regardless, he is at the point of needing dialysis as above Currently with end-stage renal disease renal u/s without obstruction but cannot visualize left kidney-either atrophic or congenitally absent significant nephropathy based on 3+ protein on u/a and high urine Protein/Cr ratio likely diabetic nephropathy and/or HTN nephrosclerosis - or both Appreciate nephrology consultation-needs dialysis as above (3) HFrEF (heart failure with reduced ejection fraction): Plan: Previously followed with cardiology at [facility] in [place] Has a long-standing ICD, with one exchange of the device since the original implantation Interrogation performed here and no issues as per nurse that performed the interrogation, however the paperwork from the interrogation cannot be found Will request previous cardiology records-have not arrived yet echo here noted - EF 25-30% global hypokinesis with septal akinesis s/p diuresis upon admission for volume overload, but held for rising creatinine as above cont coreg Discontinue diuretics BMP am ARB stopped Cont hydralazine but lower dose from 100 to 50 mg TID due to lightheadedness and brief syncope with higher doses Added imdur 30mg daily for preload and afterload reduction Appreciate cardiology/nephrology recommendations given his renal function high likelihood of needing HD to control his fluid status (4) Elevated troponin: Plan: no evidence of ACS trop elevation 0.07/0.07/0.07 likely demand ischemia in setting of decompensated CHF OR it is high from his severely impaired renal function echo noted - septal akinesis (previous [place]??) Although patient thinks he had a cardiac catheterization many years ago and was told there was no blockages. He has no history of cardiac stents that he knows of awaiting records from [place] (5) Abnormal ECG: Plan: T wave inversions anterolateral Ischemia is not ruled out although no typical symptoms for such at this time (6) Hyperkalemia: Plan: 2nd to severe renal impairment, now improved but remains mildly elevated today Continue Veltassa daily Started sodium bicarbonate 650 mg p.o. twice daily repeat BMP am (7) Anemia: Plan: Hemoglobin 8-9, MCV low at 80 Transferrin sat 11% ferritin wnl IV venofer given x3 doses Epogen given on 07/26 Anemia appears most c/w ACD from CKD Folate wnl B12 level normal TSH wnl CBC in am Continue p.o. ferrous sulfate (8) Hypertension: Plan: Blood pressures are now much better controlled and on the low side at times with a brief episode of syncope after coughing on the night of 07/25 Cont coreg 50 mg p.o. twice daily Cont hydralazine - this was increased to 100mg TID at admission but will now decrease to 50 mg p.o. 3 times daily due to lightheadedness Cont imdur 30mg daily - this was started at admission Discontinued all home diuretics including Bumex, furosemide, HCTZ ARB discontinued due to severe renal impairment, hyperkalemia, etc. (9) Gout: Plan: No acute issues Continue home allopurinol which is renally dosed (10) Diabetes mellitus type 2 in obese: Plan: Blood sugars here fairly well controlled except for some mild hyperglycemia today He is refusing the NovoLog at times Increase Lantus to 10 units SQ at bedtime novolog SSI if he is willing to take it a1c pending adjust insulins as needed (11) Obesity: Plan: MORBID Obesity, BMI 40-45 Needs weight loss (12) ICD (implantable cardioverter-defibrillator) in place: Plan: s/p implantation in 2006 then had device exchanged at some point since then he thinks about 10 years later Interrogation here without issues Cardiology following Telemetry here without significant abnormalities, sinus rhythm (13) Proteinuria: Plan: 3+ protein on u/a urine protein/Cr ratio elevated likely diabetic nephropathy or hypertensive nephrosclerosis - or both now with significant renal failure as above nephrology assistance appreciated Previously on losartan but now discontinued as above Plan: DVT prophylaxis - heparin SC Disposition-continued stay in PCU, but as above, patient adamant about discharge back to assisted on 07/27 so that he can call his personally and his meter calibrator to discuss the possibility of going on hemodialysis Admission and Anticipated Discharge Date Admission Date: July 23, 2021 Subjective Patient reports no shortness of breath and feeling well, still making urine. He is eating and drinking. Telemetry with normal sinus rhythm with rates in the 80s. Nursing also reports that the patient is refusing insulin as he thinks we are giving him too much insulin. He also refused to take Veltassa because he does not think that his potassium is elevated. I spoke to the physician's assistant food service manager, Iván Anderson, at the assisted today. His creatinine as per their records on 03/01/2021 was 3.4, and was 3.5 on 05/17/2021. Patient also reports he had an episode last night where he was coughing and then passed out for a couple of seconds as per the assisted guards. He has no recollection of what happened. There was no arrhythmias on telemetry. His blood pressures have been in the low 100s systolic since increasing hydralazine and adding on isosorbide. Discussed with him about decreasing dose of hydralazine He is still very anxious about the prospect of dialysis and is adamant that he be able to speak to his and family about it prior to starting dialysis. I discussed his care and the need for dialysis in the very near future along with nephrology at the bedside. At 1 point, the patient became very irate with me and was yelling. After I was able to calm him down, he did tell me that he wanted to be discharged back to the assisted without receiving dialysis so that he would have the option to contact his . I did offer to call his for him as I had already received permission from the assisted to do so. He finally agreed for me to call his to discuss his care. His and oldest son were on the phone and after a thorough discussion about his condition and the need for dialysis, the patient's and son were in agreement that the patient should proceed with dialysis. I went back to the patient's room to tell him what his and son had said, and he decided that he would stay overnight 1 more night check his blood work in the morning, and as long as his potassium was not critically elevated, he still is insisting that he be discharged back to the assisted tomorrow so that he can contact both his and his meter calibrator to discuss his current position. He then asked if he would be able to return to the hospital if he chooses to do dialysis after that and of course I agreed that this would be fine. Review of Systems Review of Systems: All systems reviewed & are unremarkable except as noted in HPI & below Physical Exam Constitutional: WD/WN, vitals as above + morbidly obese; no acute distress Eyes: + anicteric sclerae Neck: trachea midline, no thyromegaly Respiratory: normal respiratory effort, lungs clear to auscultation Cardiovascular: Rate/Rhythm: regular rate and regular rhythm Heart Sounds: no murmur Extremities: + edema (trace pitting edema to the knees bilaterally, markedly improved) Chest (Breasts): Chest: normal inspection of chest Gastrointestinal (Abdomen): normal bowel sounds, soft, nontender, no hepatosplenomegaly Musculoskeletal: Extremities: extremities normal to inspection; no cyanosis and no clubbing Skin: no rashes, warm and dry Neurologic: moves all extremities and awake; no focal motor deficits Psychiatric: Orientation: alert and oriented x 3 Affect: + anxious affect and + irritable affect Lymphatic: no lymphedema Results & Data Results & Data ([facility]) Vital Signs (Past 12 Hours) Vital Signs Temp Pulse Resp BP BP Pulse Ox 07/26/21 15:40 36.7 C 81 15 118/74 94 07/26/21 14:58 84 118/73 07/26/21 11:31 36.7 C 83 16 100/62 93 Laboratory Results 07/26/21 07/26/21 07/26/21 Range/Units Unknown 16:07 13:03 WBC (4.8-10.8) K/uL RBC (4.7-6.1) M/uL Hgb (14.0-18.0) g/dL Hct (42-52) % MCV (80-100) fL MCH (25-34) pg MCHC (32-36) g/dL RDW Std Deviation (36.4-46.3) fL RDW Coeff of Emily (11.5-14.5) % Plt Count (130-400) K/uL MPV (7.4-10.4) fL Sodium (136-145) mmol/L Potassium (3.5-5.1) mmol/L Chloride (98-107) mmol/L Carbon Dioxide (21-32) mmol/L Anion Gap (3-11) BUN (6-23) mg/dl Creatinine (0.6-1.4) mg/dl Est Cr Clr Drug Dosing ml/min Est GFR ( Amer) ml/min Est GFR (Non-Af Amer) ml/min BUN/Creatinine Ratio (10-20) Glucose (70-99(Fasting)) mg/dl POC Glucose 142 H (70-99) mg/dl Calcium (8.5-10.1) mg/dl Phosphorus (2.5-4.9) mg/dl Total Protein (PEP) Albumin (3.4-5.0) gm/dl Albumin (PEP) Pzoew-5-Ueajaupoj Ytxwc-7-Pmtvtyqsr Meli-9-Isrywpxf Vasm-6-Djxywagh Gamma Globulins Monoclonal Peak 3 Ser Monoclonl Protein Ser Monoclonal Prot 2 PEP Interpretation U Random Total Protein Ur Creatinine mg/dL Protein/Creatinin Ratio Urine Albumin (%) U Poiik-0-Nkuxjzdv (%) U Cxakq-6-Xnplzzya (%) U Beta Globulin (%) U Gamma Globulin (%) U Abnormal Prot Band 1 U Abnormal Prot Band 2 U Abnormal Prot Band 3 Urine PEP Interpret Stool Occult Bld Scrn Negative (Negative) Hep Bs Antigen (Neg) Hep Bs Antibody Hep Bs Antibody, Quant (>or=10mIU/mL Immune) mIU/mL Hep B Core IgM Ab Pending 07/26/21 07/26/21 07/26/21 Range/Units 13:03 11:05 07:17 WBC (4.8-10.8) K/uL RBC (4.7-6.1) M/uL Hgb (14.0-18.0) g/dL Hct (42-52) % MCV (80-100) fL MCH (25-34) pg MCHC (32-36) g/dL RDW Std Deviation (36.4-46.3) fL RDW Coeff of Emily (11.5-14.5) % Plt Count (130-400) K/uL MPV (7.4-10.4) fL Sodium (136-145) mmol/L Potassium (3.5-5.1) mmol/L Chloride (98-107) mmol/L Carbon Dioxide (21-32) mmol/L Anion Gap (3-11) BUN (6-23) mg/dl Creatinine (0.6-1.4) mg/dl Est Cr Clr Drug Dosing ml/min Est GFR ( Amer) ml/min Est GFR (Non-Af Amer) ml/min BUN/Creatinine Ratio (10-20) Glucose (70-99(Fasting)) mg/dl POC Glucose 241 H 159 H (70-99) mg/dl Calcium (8.5-10.1) mg/dl Phosphorus (2.5-4.9) mg/dl Total Protein (PEP) Albumin (3.4-5.0) gm/dl Albumin (PEP) Xjift-6-Sfewguvwr Cnrzj-6-Qwpowofnm Pfgj-6-Zpipukhk Oqcn-4-Qfpaayzq Gamma Globulins Monoclonal Peak 3 Ser Monoclonl Protein Ser Monoclonal Prot 2 PEP Interpretation U Random Total Protein Ur Creatinine mg/dL Protein/Creatinin Ratio Urine Albumin (%) U Brxde-5-Rkakswwz (%) U Nhvac-6-Foecmhjm (%) U Beta Globulin (%) U Gamma Globulin (%) U Abnormal Prot Band 1 U Abnormal Prot Band 2 U Abnormal Prot Band 3 Urine PEP Interpret Stool Occult Bld Scrn (Negative) Hep Bs Antigen Neg (Neg) Hep Bs Antibody Immune Hep Bs Antibody, Quant > 1000.00 (>or=10mIU/mL Immune) mIU/mL Hep B Core IgM Ab 07/26/21 07/26/21 07/26/21 Range/Units 06:03 06:03 06:03 WBC 9.16 (4.8-10.8) K/uL RBC 3.23 L (4.7-6.1) M/uL Hgb 8.5 L (14.0-18.0) g/dL Hct 25.9 L (42-52) % MCV 80.2 (80-100) fL MCH 26.3 (25-34) pg MCHC 32.8 (32-36) g/dL RDW Std Deviation 48.2 H (36.4-46.3) fL RDW Coeff of Emily 16.3 H (11.5-14.5) % Plt Count 280 (130-400) K/uL MPV 9.1 (7.4-10.4) fL Sodium 136 (136-145) mmol/L Potassium 5.3 H (3.5-5.1) mmol/L Chloride 107 (98-107) mmol/L Carbon Dioxide 18 L (21-32) mmol/L Anion Gap 11 (3-11) BUN 88 H (6-23) mg/dl Creatinine 8.60 H* (0.6-1.4) mg/dl Est Cr Clr Drug Dosing 12.8 ml/min Est GFR ( Amer) 7.2 ml/min Est GFR (Non-Af Amer) 6.2 ml/min BUN/Creatinine Ratio 10.2 (10-20) Glucose 155 H (70-99(Fasting)) mg/dl POC Glucose (70-99) mg/dl Calcium 7.9 L (8.5-10.1) mg/dl Phosphorus 6.3 H (2.5-4.9) mg/dl Total Protein (PEP) Pending Albumin 2.9 L (3.4-5.0) gm/dl Albumin (PEP) Pending Yaoep-2-Gzsksatmo Pending Xkeli-7-Afzjyynkw Pending Xtgq-7-Lsbcibsm Pending Hrvu-3-Amowvsnq Pending Gamma Globulins Pending Monoclonal Peak 3 Pending Ser Monoclonl Protein Pending Ser Monoclonal Prot 2 Pending PEP Interpretation Pending U Random Total Protein Ur Creatinine mg/dL Protein/Creatinin Ratio Urine Albumin (%) U Yhrod-7-Qsehouzy (%) U Zlodt-8-Jtquxfop (%) U Beta Globulin (%) U Gamma Globulin (%) U Abnormal Prot Band 1 U Abnormal Prot Band 2 U Abnormal Prot Band 3 Urine PEP Interpret Stool Occult Bld Scrn (Negative) Hep Bs Antigen (Neg) Hep Bs Antibody Hep Bs Antibody, Quant (>or=10mIU/mL Immune) mIU/mL Hep B Core IgM Ab 07/25/21 07/25/21 07/25/21 Range/Units 23:13 20:56 19:40 WBC (4.8-10.8) K/uL RBC (4.7-6.1) M/uL Hgb (14.0-18.0) g/dL Hct (42-52) % MCV (80-100) fL MCH (25-34) pg MCHC (32-36) g/dL RDW Std Deviation (36.4-46.3) fL RDW Coeff of Emily (11.5-14.5) % Plt Count (130-400) K/uL MPV (7.4-10.4) fL Sodium (136-145) mmol/L Potassium (3.5-5.1) mmol/L Chloride (98-107) mmol/L Carbon Dioxide (21-32) mmol/L Anion Gap (3-11) BUN (6-23) mg/dl Creatinine (0.6-1.4) mg/dl Est Cr Clr Drug Dosing ml/min Est GFR ( Amer) ml/min Est GFR (Non-Af Amer) ml/min BUN/Creatinine Ratio (10-20) Glucose (70-99(Fasting)) mg/dl POC Glucose 184 H 164 H (70-99) mg/dl Calcium (8.5-10.1) mg/dl Phosphorus (2.5-4.9) mg/dl Total Protein (PEP) Albumin (3.4-5.0) gm/dl Albumin (PEP) Yejce-9-Ggqbysemu Mgjwf-8-Kebqnqzuh Iklf-8-Uscsthxe Bawj-1-Shqjfrsp Gamma Globulins Monoclonal Peak 3 Ser Monoclonl Protein Ser Monoclonal Prot 2 PEP Interpretation U Random Total Protein Pending Ur Creatinine mg/dL Pending Protein/Creatinin Ratio Pending Urine Albumin (%) Pending U Grkrk-5-Dbrxzfyl (%) Pending U Avuml-2-Mejfjlcs (%) Pending U Beta Globulin (%) Pending U Gamma Globulin (%) Pending U Abnormal Prot Band 1 Pending U Abnormal Prot Band 2 Pending U Abnormal Prot Band 3 Pending Urine PEP Interpret Pending Stool Occult Bld Scrn (Negative) Hep Bs Antigen (Neg) Hep Bs Antibody Hep Bs Antibody, Quant (>or=10mIU/mL Immune) mIU/mL Hep B Core IgM Ab 07/23/21 Range/Units 12:53 WBC (4.8-10.8) K/uL RBC (4.7-6.1) M/uL Hgb 9.1 L (14.0-18.0) g/dL Hct (42-52) % MCV (80-100) fL MCH (25-34) pg MCHC (32-36) g/dL RDW Std Deviation (36.4-46.3) fL RDW Coeff of Emily (11.5-14.5) % Plt Count (130-400) K/uL MPV (7.4-10.4) fL Sodium (136-145) mmol/L Potassium (3.5-5.1) mmol/L Chloride (98-107) mmol/L Carbon Dioxide (21-32) mmol/L Anion Gap (3-11) BUN (6-23) mg/dl Creatinine (0.6-1.4) mg/dl Est Cr Clr Drug Dosing ml/min Est GFR ( Amer) ml/min Est GFR (Non-Af Amer) ml/min BUN/Creatinine Ratio (10-20) Glucose (70-99(Fasting)) mg/dl POC Glucose (70-99) mg/dl Calcium (8.5-10.1) mg/dl Phosphorus (2.5-4.9) mg/dl Total Protein (PEP) Albumin (3.4-5.0) gm/dl Albumin (PEP) Iaksz-8-Gwyzkbvny Kungs-1-Qhmphznfz Junm-9-Dehpaltj Rive-9-Ttabwpcq Gamma Globulins Monoclonal Peak 3 Ser Monoclonl Protein Ser Monoclonal Prot 2 PEP Interpretation U Random Total Protein Ur Creatinine mg/dL Protein/Creatinin Ratio Urine Albumin (%) U Mfkec-6-Mnwchxyz (%) U Zipri-1-Ppitapba (%) U Beta Globulin (%) U Gamma Globulin (%) U Abnormal Prot Band 1 U Abnormal Prot Band 2 U Abnormal Prot Band 3 Urine PEP Interpret Stool Occult Bld Scrn (Negative) Hep Bs Antigen (Neg) Hep Bs Antibody Hep Bs Antibody, Quant (>or=10mIU/mL Immune) mIU/mL Hep B Core IgM Ab PG Care Time/CCT Total # of Minutes Spent Total Time Spent with Patient: Total time spent is greater than 50% in coordination of care (as documented) at patient's floor/unit and/or counseling patient: Coding Level of Care Code 21548 Subseq Hosp Care Lvl 3 Diagnoses Cardiorenal syndrome with renal failure I13.10 CKD (chronic kidney disease) N18.9 Chronic kidney disease stage: unspecified stage HFrEF (heart failure with reduced ejection fraction) I50.20 Elevated troponin R77.8 Abnormal ECG R94.31 Hyperkalemia E87.5 Anemia D64.9 Hypertension I10 Gout M10.9 Diabetes mellitus type 2 in obese E11.69; E66.9 Obesity E66.9 ICD (implantable cardioverter-defibrillator) in place Z95.810 Proteinuria R80.9 (1) CKD (chronic kidney disease) Chronic kidney disease stage: unspecified stage Qualified Code(s): N18.9 - Chronic kidney disease, unspecified
[2021-07-26] MEDS: ATORVASTATIN 40 MG TAB PO SCH (21:20)
[2021-07-26] MEDS: INSULIN GLARGINE SOLOSTAR 100 UNITS/ML 3 ML PEN SC SCH (21:22)
[2021-07-27 06:15] LABS: Hemoglobin 8.3 g/dL (14.0-18.0); Mean Corpuscular Hemoglobin 26.3 pg (25-34); Mean Corpuscular Hgb Conc 33.2 g/dL (32-36); Mean Corpuscular Volume 79.4 fL (80-100); Mean Platelet Volume 8.9 fL (7.4-10.4); Platelet Count 275 K/uL (130-400); RDW Coefficient of Variation 16.4 % (11.5-14.5); RDW Standard Deviation 47.5 fL (36.4-46.3); Red Blood Count 3.15 M/uL (4.7-6.1); White Blood Count 9.23 K/uL (4.8-10.8)
[2021-07-27] MEDS: HEPARIN SOD 5,000 UNIT/0.5 ML VIAL SQ SCH ×3 (06:22→21:33)
[2021-07-27 06:45] LABS: Albumin Level 2.9 gm/dl (3.4-5.0); BUN Creatinine Ratio 9.5 (10-20); Calcium 7.1 mg/dl (8.5-10.1); Creatinine Clr Calc Pharmacy 10.9 ml/min; Est GFR (African American) 5.8 ml/min; Phosphorus 6.9 mg/dl (2.5-4.9); Potassium 4.7 mmol/L (3.5-5.1)
[2021-07-27] MEDS: INSULIN ASPART PER UNIT SC SCH ×4 (08:29→21:31)
[2021-07-27] MEDS: SEVELAMER HCL 800 MG TABLET PO SCH ×3 (08:30→17:07)
[2021-07-27] MEDS: ISOSORBIDE MONO EXTENDED REL 30 MG TABCR PO SCH (08:31)
[2021-07-27] MEDS: allopurinoL 100 MG TAB PO SCH (08:31)
[2021-07-27] MEDS: hydrALAZINE TAB 50 MG TAB PO SCH ×3 (08:31→21:35)
[2021-07-27] MEDS: carvediloL 25 MG TAB PO SCH ×2 (08:32→21:33)
[2021-07-27] MEDS: ASPIRIN 81 MG ECTAB PO SCH (08:32)
[2021-07-27] MEDS: DOCUSATE SODIUM 100 MG CAP PO SCH (08:33)
[2021-07-27] MEDS: SODIUM BICARBONATE 650 MG TAB PO SCH ×2 (08:33→21:34)
[2021-07-27] MEDS: IRON SUCROSE 200 MG in 0.9 % SODIUM CHLORIDE 100 ML IV SCH (10:10)
--- NOTE | 2021-07-27 10:53 | Nephrology Progress Note ---
Date of Service July 27, 2021 Assessment & Plan (1) ESRD needing dialysis: (2) Proteinuria: (3) Hyperkalemia: (4) Hypertension: (5) Diabetes mellitus type 2 in obese: Plan: YEN with CKD,admitted with progressive shortness of breath, volume overload, respiratory status improved with IV diuretics with significant improvement in volume status. cr was 3.5 in Feb and Decemebr of 2020. UA with 3 + P, 1+ hematuria, USG atrophic rt kidney, ? absent left kidney, pending old records. Rapid worsening of renal function with multiple stigmata of advanced, end-stage renal disease including anemia, hyperkalemia, metabolic acidosis and hyperphosphatemia. Creatinine was around 3.5 in February 2021. -- again had long discussion with patient this morning and recommended preparation for starting on dialysis. He is now agreeable to have dialysis. -- consult vascular surgery for tunneled dialysis catheter hopefully tomorrow morning and 1st dialysis treatment tomorrow for 2 hours. -- consult case management for outpatient dialysis set up. --on venofer, CASSI, Renvela 1 tab TIDM --left arm nephrology precaution Will follow Admission and Anticipated Discharge Date Admission Date: July 23, 2021 Leonie Palafox was seen and evaluated this am. Overall he Continues to feel fine, denies SOB, chest pain. Decent urine output despite holding diuretics. Progressive worsening of renal function, creatinine >10 BUN 88, bicarb 18, phos high. Blood pressure has been fairly controlled. He is now agreeable to have dialysis. Review of Systems Review of Systems: Detailed review of system was otherwise unremarkable. Physical Exam Constitutional: WD/WN, vitals as above no acute distress Eyes: + anicteric sclerae Neck: normal visual inspection Respiratory: no respiratory distress Auscultation: lungs clear to auscultation bilaterally Cardiovascular: Rate/Rhythm: regular rate and regular rhythm Heart Sounds: normal S1 and normal S2 Extremities: + edema ( trace bilateral lower extremity edema.) Skin: no rashes Neurologic: no focal motor deficits and not confused Psychiatric: Orientation: alert and oriented x 3 Results & Data ([facility]) Vital Signs (Past 12 Hours) Vital Signs Temp Pulse Pulse Resp BP BP Pulse Ox 07/27/21 07:41 36.7 C 84 20 114/72 93 07/27/21 04:12 36.7 C 85 18 106/68 94 07/27/21 00:30 36.8 C 85 18 102/65 92 07/26/21 23:00 85 PG Care Time/CCT Total # of Minutes Spent Total Time Spent with Patient: Total time spent is greater than 50% in coordination of care (as documented) at patient's floor/unit and/or counseling patient: Coding Level of Care Code 73939 Subseq Hosp Care Lvl 3 Diagnoses ESRD needing dialysis N18.6; Z99.2 Proteinuria R80.9 Hyperkalemia E87.5 Hypertension I10 Diabetes mellitus type 2 in obese E11.69; E66.9
[2021-07-27] MEDS ORDERED: PREGABALIN 25 MG CAP PO SCH (11:00)
[2021-07-27] MEDS: PATIROMER CALCIUM SORBITEX 8.4 GM PACK PO SCH (11:42)
--- NOTE | 2021-07-27 13:46 | Cardiology Progress Note ---
Date of Service July 27, 2021 Assessment & Plan (1) Cardiorenal syndrome with renal failure: (2) HFrEF (heart failure with reduced ejection fraction): (3) Hypertension: (4) Diabetes mellitus type 2 in obese: (5) CKD (chronic kidney disease): (6) Elevated troponin: (7) ICD (implantable cardioverter-defibrillator) in place: Plan: Agree with proceeding to dialysis, although he has been diuretic responsive the dosing of diuretics would be difficult and he has other metabolic issues which suggest dialysis is necessary independent of managing his volume status. Important to convey to dietary at long term that he should be on a low-sodium diet. BP normotensive on current vasoactive regimen. Minor troponin elevation in the context of renal failure without peak and decay is inconsequential. Ef 25-30%. Long standing. Continue guideline directed medical therapy including Carvedilol 50 mg BID, Hydralazine + Isosorbide. Not on ACEI/ARB/ARNI due to kidney disease. Would also not recommend Spironolactone with CKD. He has an ICD. Disposition: defer volume management to the dialysis team, suspect he will not need to be enrolled in the heart failure program since volume will be managed at dialysis. We'll sign off, please contact if change in clinical status or further cardiac issues arise. Thank you for this consultation. Admission and Anticipated Discharge Date Admission Date: July 23, 2021 Subjective Patient noted some dyspnea at rest with coughing last evening. Comfortable currently. No chest pain at any time. I/O -525 Weight up 6 pounds overnight (? accuracy) He agrees to proceed with dialysis. Physical Exam Physical Exam: No distress. Normotensive. Pulse 80 bpm and regular. Skin: no ecchymoses or generalized lesions. HEENT: unremarkable. Neck: Jugular venous pulse 2/3 way to the angle of the jaw at 90 degrees, no carotid bruits. Lungs: clear bilaterally. No crackles, wheezing, or accessory muscle use. Cardiac: regular rhythm, 2/6 holosystolic murmur heard only in the axilla, no diastolic murmur. Abdomen: benign. Extremities: 1+ pretibial pitting edema, pulses intact. Neurologic: normal affect and conversation, nonfocal. Results & Data ([facility]) Vital Signs (Past 12 Hours) Vital Signs Temp Pulse Pulse Resp BP BP Pulse Ox 07/27/21 11:46 98.1 F 80 20 116/67 95 07/27/21 08:00 86 07/27/21 07:41 98.1 F 84 20 114/72 93 07/27/21 04:12 98.1 F 85 18 106/68 94 Laboratory Results BUN 98, creatinine up to 10.27. PG Care Time/CCT Total # of Minutes Spent Total Time Spent with Patient: Total time spent is greater than 50% in coordination of care (as documented) at patient's floor/unit and/or counseling patient: Coding Level of Care Code 24600 Subseq Hosp Care Lvl 3 Diagnoses Cardiorenal syndrome with renal failure I13.10 HFrEF (heart failure with reduced ejection fraction) I50.20 Hypertension I10 Diabetes mellitus type 2 in obese E11.69; E66.9 CKD (chronic kidney disease) N18.9 Chronic kidney disease stage: unspecified stage Elevated troponin R77.8 ICD (implantable cardioverter-defibrillator) in place Z95.810 (1) CKD (chronic kidney disease) Chronic kidney disease stage: unspecified stage Qualified Code(s): N18.9 - Chronic kidney disease, unspecified
--- NOTE | 2021-07-27 15:00 | Consultation ---
Date of Consultation July 27, 2021 Assessment & Plan (1) ESRD needing dialysis: Pt discussed with Dr Salinas. Planning on permcath insertion in OR tomorrow. Discussed procedure with patient. He is agreeable, but then states he will not sign the consent forms until tomorrow, as he is hoping to speak with his and son later today. History of Present Illness Reason for Consultation: ESRD Attending Physician: Saud Mercer History of Present Illness 55 yo incarcerated m with hx of CKD, CHF, AICD, HTN, cardiorenal syndrome, gout, DMII, morbid obesity, admitted with acutely worsening renal function, seen in consultation today for permcath insertion to start HD. His creatinine has been increasing, but still producing some urine. Pt denies any significant complaints at this time. Denies SABILLON, fever, chest pain, SOB, abd pain, N/V, rest pain, claudication, other complaints. Allergies Allergy/AdvReac Type Severity Reaction Status Date / Time No Known Allergies Allergy Unverified 07/23/21 14:15 Home Medications Medication Instructions Recorded Confirmed Type allopurinol 100 mg tablet 100 mg PO DAILY 07/23/21 07/23/21 History aspirin 81 mg tablet,delayed 81 mg PO DAILY 07/23/21 07/23/21 History release atorvastatin 80 mg tablet 80 mg PO HS 07/23/21 07/23/21 History bumetanide 2 mg tablet 2 mg PO BID 07/23/21 07/23/21 History carvedilol 25 mg tablet 50 mg PO BID 07/23/21 07/23/21 History docusate sodium 100 mg tablet 100 mg PO DAILY 07/23/21 07/23/21 History ferrous sulfate 325 mg (65 mg 325 mg PO Q2D 07/23/21 07/23/21 History iron) tablet furosemide 10 mg/mL injection 80 mg IV ONCE 07/23/21 07/23/21 History solution furosemide 80 mg tablet 80 mg PO BID 07/23/21 07/23/21 History glipizide 10 mg tablet 10 mg PO DAILY 07/23/21 07/23/21 History hydralazine 100 mg tablet 100 mg PO BID 07/23/21 07/23/21 History hydrochlorothiazide 25 mg tablet 25 mg PO DAILY 07/23/21 07/23/21 History insulin NPH isoph U-100 human 100 See Rx Instructions .ROUTE .COMPLEX 07/23/21 07/23/21 History unit/mL (3 mL) subcutaneous pen (Novolin N Flexpen) insulin regular human 100 unit/mL 1 sliding scale dose SUBCUT 07/23/21 07/23/21 History (3 mL) subcutaneous pen (Novolin R USEASDIRECTD Flexpen) losartan 100 mg tablet 100 mg PO DAILY 07/23/21 07/23/21 History Patient History Medical History Acute kidney injury Anemia CKD (chronic kidney disease) Diabetes mellitus type 2 in obese ESRD needing dialysis Gout HFrEF (heart failure with reduced ejection fraction) Hypertension Obesity Surgical History ICD (implantable cardioverter-defibrillator) in place Family History Denies family history of Congenital kidney disease Social History Smoking Status: Never smoker Hx Alcohol Use: No Hx Substance Use: No Preferred Language: Zambian 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: No Beliefs That Will Affect Care: None marital status: Current Living Situation: Other Current Living Situation Comment: Group Home 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, 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[facility] How many Children do You have: 14 Feels Safe at Home: Yes Assistive Devices: None Review of Systems Review of Systems: All systems reviewed & are unremarkable except as noted in HPI & below Physical Exam Constitutional: WD/WN, vitals as above + morbidly obese, cooperative and comfortable; not in distress ENMT: Ears: no hearing impairment Neck: trachea midline Respiratory: normal respiratory effort Auscultation: + diminished lung sounds and + crackles Cardiovascular: Rate/Rhythm: regular rate and regular rhythm Vessels: posterior tibial pulses present, dorsalis pedis pulses present and brachial pulses present; + abnormal peripheral pulses Extremities: normal capillary refill and + edema Gastrointestinal (Abdomen): Inspection/Auscultation: abdomen normal to inspection and normal bowel sounds Percussion/Palpation: abdomen soft; abdomen nontender Musculoskeletal: no cyanosis or clubbing, extremities motor strength 5/5 Skin: no rashes, warm and dry Neurologic: moves all extremities and awake; no focal motor deficits and not confused Psychiatric: A+Ox3, euthymic affect Results & Data ([facility]) Vital Signs (Past 12 Hours) Vital Signs Temp Pulse Pulse Resp BP BP Pulse Ox 07/27/21 11:46 36.7 C 80 20 116/67 95 07/27/21 08:00 86 07/27/21 07:41 36.7 C 84 20 114/72 93 07/27/21 04:12 36.7 C 85 18 106/68 94
--- NOTE | 2021-07-27 17:48 | Hospitalist Progress Note ---
Date of Service July 27, 2021 Assessment & Plan (1) Cardiorenal syndrome with renal failure: Plan: Severe systolic CHF along with severe renal failure - baseline creatinine was 3.4 in 02/2021 and 3.5 in 05/2021 as per snf labs Creatinine was up to 8 on admission s/p IV thiazide and IV lasix with good response to such on the first night of admission however, creatinine worsened, and K jorge again, diuretics held Creatinine now has trended upward to 8.6, BUN up to 88, is with an anion gap metabolic acidosis, volume overloaded but that has improved somewhat. Hyperkalemia has improved also with treatment with Veltassa and sodium bicarbonate but remains mildly elevated. Blood pressures are stable, continues to be making urine. appreciate both cardiology and nephrology consultations records from [facility] in [place] requested but not received yet Patient is now leaning towards dialysis. Patient will be discussing care with his family after [facility] provides permission. Update: Patient had discussion with family and is now agreeable to having dialysis. is final decision if he chooses to pursue dialysis -If he chooses not to pursue dialysis, the snf can continue current medical management and pursue hospice measures if the patient declines -Started sodium bicarbonate 650 mg p.o. twice daily -Continue daily Veltassa upon discharge -Has received 3 doses of IV Venofer for anemia as well as Epogen -Blood pressure control as below -Discontinued home ARB, HCTZ, bumetanide, and furosemide -Continue low-sodium, low potassium/renal diet -Follow BMP in the morning -Follow urine output -Checking serologies for renal failure to include SHAWNA, ANCA, complement, free kappa lambda light chain, glomerular basement membrane antibody, phospholipase A2 receptor antibody, UPEP, SPEP -Needs to start dialysis in the very near future -Start sevelamer 800 mg p.o. 3 times daily (2) CKD (chronic kidney disease): Plan: Unknown stage prior to 02/2021, but was seen by nephrology in 2020 in [place] and told he may need dialysis in 3-4 years Creatinine at the snf on 02/2021 was 3.4 and was 3.5 in 05/2021 await records to see what labs were like in 2020, but regardless, he is at the point of needing dialysis as above Currently with end-stage renal disease renal u/s without obstruction but cannot visualize left kidney-either atrophic or congenitally absent significant nephropathy based on 3+ protein on u/a and high urine Protein/Cr ratio likely diabetic nephropathy and/or HTN nephrosclerosis - or both Appreciate nephrology consultation-needs dialysis as above (3) HFrEF (heart failure with reduced ejection fraction): Plan: Previously followed with cardiology at [facility] in [place] Has a long-standing ICD, with one exchange of the device since the original implantation Interrogation performed here and no issues as per nurse that performed the interrogation, however the paperwork from the interrogation cannot be found Will request previous cardiology records-have not arrived yet echo here noted - EF 25-30% global hypokinesis with septal akinesis s/p diuresis upon admission for volume overload, but held for rising creatinine as above cont coreg Discontinue diuretics BMP am ARB stopped Cont hydralazine but lower dose from 100 to 50 mg TID due to lightheadedness and brief syncope with higher doses Added imdur 30mg daily for preload and afterload reduction Appreciate cardiology/nephrology recommendations given his renal function high likelihood of needing HD to control his fluid status (4) Elevated troponin: Plan: no evidence of ACS trop elevation 0.07/0.07/0.07 likely demand ischemia in setting of decompensated CHF OR it is high from his severely impaired renal function echo noted - septal akinesis (previous ME??) Although patient thinks he had a cardiac catheterization many years ago and was told there was no blockages. He has no history of cardiac stents that he knows of awaiting records from [place] (5) Abnormal ECG: Plan: T wave inversions anterolateral Ischemia is not ruled out although no typical symptoms for such at this time (6) Hyperkalemia: Plan: 2nd to severe renal impairment, now improved but remains mildly elevated today Continue Veltassa daily Started sodium bicarbonate 650 mg p.o. twice daily repeat BMP am (7) Anemia: Plan: Hemoglobin 8-9, MCV low at 80 Transferrin sat 11% ferritin wnl IV venofer given x3 doses Epogen given on 07/26 Anemia appears most c/w ACD from CKD Folate wnl B12 level normal TSH wnl CBC in am Continue p.o. ferrous sulfate (8) Hypertension: Plan: Blood pressures are now much better controlled and on the low side at times with a brief episode of syncope after coughing on the night of 07/25 Cont coreg 50 mg p.o. twice daily Cont hydralazine - this was increased to 100mg TID at admission but will now decrease to 50 mg p.o. 3 times daily due to lightheadedness Cont imdur 30mg daily - this was started at admission Discontinued all home diuretics including Bumex, furosemide, HCTZ ARB discontinued due to severe renal impairment, hyperkalemia, etc. (9) Gout: Plan: No acute issues Continue home allopurinol which is renally dosed (10) Diabetes mellitus type 2 in obese: Plan: Blood sugars here fairly well controlled except for some mild hyperglycemia today He is refusing the NovoLog at times Increase Lantus to 10 units SQ at bedtime novolog SSI if he is willing to take it a1c pending adjust insulins as needed (11) Obesity: Plan: MORBID Obesity, BMI 40-45 Needs weight loss (12) ICD (implantable cardioverter-defibrillator) in place: Plan: s/p implantation in 2006 then had device exchanged at some point since then he thinks about 10 years later Interrogation here without issues Cardiology following Telemetry here without significant abnormalities, sinus rhythm (13) Proteinuria: Plan: 3+ protein on u/a urine protein/Cr ratio elevated likely diabetic nephropathy or hypertensive nephrosclerosis - or both now with significant renal failure as above nephrology assistance appreciated Previously on losartan but now discontinued as above Plan: DVT prophylaxis - heparin SC Disposition-continued stay in PCU, but as above, patient adamant about discharge back to snf on 07/27 so that he can call his personally and his runner man to discuss the possibility of going on hemodialysis Admission and Anticipated Discharge Date Admission Date: July 23, 2021 Subjective 55 yo male reports no new symptoms today. He is excited to be able to talk to his family. He will get papaers signed from [facility]. He is leaning towards getting dialysis. Review of Systems Review of Systems: All systems reviewed & are unremarkable except as noted in HPI & below Physical Exam Physical Exam: gen - obese, NAD neck - mild JVD mouth - MMM heart - RRR, s1 s2 lungs - decreased BS bases, no rales or wheeze abd - soft NT ND BS+ ext - <1+ edema b/l, pulses 2+ b/l Results & Data Results & Data ([facility]) Vital Signs (Past 12 Hours) Vital Signs Temp Pulse Pulse Resp BP Pulse Ox 07/27/21 16:21 36.9 C 84 20 124/71 94 07/27/21 11:46 36.7 C 80 20 116/67 95 07/27/21 08:00 86 07/27/21 07:41 36.7 C 84 20 114/72 93 PG Care Time/CCT Total # of Minutes Spent Total Time Spent with Patient: Total time spent is greater than 50% in coordination of care (as documented) at patient's floor/unit and/or counseling patient: Coding Level of Care Code 82725 Subseq Hosp Care Lvl 3 Diagnoses Cardiorenal syndrome with renal failure I13.10 CKD (chronic kidney disease) N18.9 Chronic kidney disease stage: unspecified stage HFrEF (heart failure with reduced ejection fraction) I50.20 Elevated troponin R77.8 Abnormal ECG R94.31 Hyperkalemia E87.5 Anemia D64.9 Hypertension I10 Gout M10.9 Diabetes mellitus type 2 in obese E11.69; E66.9 Obesity E66.9 ICD (implantable cardioverter-defibrillator) in place Z95.810 Proteinuria R80.9 Time Spent (min) 35 (1) CKD (chronic kidney disease) Chronic kidney disease stage: unspecified stage Qualified Code(s): N18.9 - Chronic kidney disease, unspecified
[2021-07-27] MEDS: ATORVASTATIN 40 MG TAB PO SCH (21:33)
[2021-07-27] MEDS: INSULIN GLARGINE SOLOSTAR 100 UNITS/ML 3 ML PEN SC SCH (21:34)
[2021-07-28] MEDS: HEPARIN SOD 5,000 UNIT/0.5 ML VIAL SQ SCH ×3 (06:02→20:59)
[2021-07-28 06:18] LABS: Hematocrit (blood only) 24.4 % (42-52); Mean Corpuscular Hemoglobin 26.5 pg (25-34); Mean Corpuscular Hgb Conc 32.8 g/dL (32-36); Mean Corpuscular Volume 80.8 fL (80-100); Mean Platelet Volume 9.2 fL (7.4-10.4); Platelet Count 275 K/uL (130-400); RDW Coefficient of Variation 16.8 % (11.5-14.5); RDW Standard Deviation 49.4 fL (36.4-46.3); Red Blood Count 3.02 M/uL (4.7-6.1); White Blood Count 8.86 K/uL (4.8-10.8)
[2021-07-28 07:03] LABS: Creatinine Clr Calc Pharmacy 10.4 ml/min; Est GFR (African American) 5.6 ml/min; Est GFR (Non-African American) 4.9 ml/min
[2021-07-28 07:04] LABS: BUN Creatinine Ratio 9.5 (10-20); Calcium 7.7 mg/dl (8.5-10.1); Phosphorus 6.9 mg/dl (2.5-4.9); Potassium 4.9 mmol/L (3.5-5.1)
[2021-07-28] MEDS ORDERED: Nursing to Pharmacy Communication SCH (07:15)
[2021-07-28] MEDS: SODIUM BICARBONATE 650 MG TAB PO SCH ×2 (08:24→20:31)
[2021-07-28] MEDS: SEVELAMER HCL 800 MG TABLET PO SCH ×3 (08:24→17:11)
[2021-07-28] MEDS: hydrALAZINE TAB 50 MG TAB PO SCH ×3 (08:24→20:32)
[2021-07-28] MEDS: allopurinoL 100 MG TAB PO SCH (08:25)
[2021-07-28] MEDS: FERROUS SULFATE 325 MG TAB PO SCH (08:25)
[2021-07-28] MEDS: carvediloL 25 MG TAB PO SCH ×2 (08:25→20:32)
[2021-07-28] MEDS: ISOSORBIDE MONO EXTENDED REL 30 MG TABCR PO SCH (08:25)
[2021-07-28] MEDS: DOCUSATE SODIUM 100 MG CAP PO SCH (08:26)
[2021-07-28] MEDS: ASPIRIN 81 MG ECTAB PO SCH (08:26)
[2021-07-28] MEDS: IRON SUCROSE 200 MG in 0.9 % SODIUM CHLORIDE 100 ML IV SCH (08:46)
[2021-07-28] MEDS: INSULIN ASPART PER UNIT SC SCH ×4 (08:53→20:57)
[2021-07-28] MEDS ORDERED: EPOETIN ALFA 20,000 UNITS/ML VIAL IV SCH (09:00)
[2021-07-28 09:41] LABS: Creatinine Ur 88 mg/dL (20-320); Protein, Urine Random 334 mg/dL (5-25); Ur Protein/Creat Ratio mg/g 3795 mg/g creat (22-128); Urine Abnormal Protein Band 1 DNR mg/dL (NONE DETECTED); Urine Abnormal Protein Band 2 DNR mg/dL (NONE DETECTED); Urine Abnormal Protein Band 3 DNR mg/dL (NONE DETECTED); Urine Protein/Creatinine Ratio 3.795 (0.022-0.128)
--- NOTE | 2021-07-28 11:16 | Nephrology Progress Note ---
Date of Service July 28, 2021 Assessment & Plan (1) ESRD needing dialysis: (2) Proteinuria: (3) Hyperkalemia: (4) Hypertension: (5) Diabetes mellitus type 2 in obese: Plan: YEN with CKD,admitted with progressive shortness of breath, volume overload, respiratory status improved with IV diuretics with significant improvement in volume status. cr was 3.5 in Feb and Decemebr of 2020. UA with 3 + P, 1+ hematuria, USG atrophic rt kidney, ? absent left kidney, pending old records. Rapid worsening of renal function with multiple stigmata of advanced, end-stage renal disease including anemia, hyperkalemia, metabolic acidosis and hyperphosphatemia. Creatinine was around 3.5 in February 2021. -- Plan for TDC this morning and 1st dialysis treatment in the afternoon. -- Waiting on outpatient dialysis set up. --on venofer, CASSI, Renvela 1 tab TIDM --left arm nephrology precaution Will follow Admission and Anticipated Discharge Date Admission Date: July 23, 2021 Leonie Palafox was seen and evaluated this am. Overall he continues to feel fine, denies SOB, chest pain. Decent urine output despite holding diuretics. Progressive w orsening of renal function. Blood pressure has been fairly controlled. waiting on getting tunneled dialysis catheter. Review of Systems Review of Systems: Detailed review of system was otherwise unremarkable. Physical Exam Constitutional: WD/WN, vitals as above no acute distress Respiratory: no respiratory distress Auscultation: lungs clear to auscultation bilaterally Cardiovascular: Rate/Rhythm: regular rate and regular rhythm Heart Sounds: normal S1 and normal S2 Extremities: + edema ( trace bilateral lower extremity edema.) Skin: no rashes Neurologic: no focal motor deficits and not confused Psychiatric: Orientation: alert and oriented x 3 Results & Data ([facility]) Vital Signs (Past 12 Hours) Vital Signs Temp Pulse Pulse Pulse Resp BP BP 07/28/21 08:00 36.6 C 77 16 118/71 07/28/21 03:28 36.8 C 82 18 106/68 07/28/21 01:32 84 07/27/21 23:35 37.1 C 90 19 111/69 Pulse Ox 07/28/21 08:00 95 07/28/21 03:28 93 07/28/21 01:32 07/27/21 23:35 96 PG Care Time/CCT Total # of Minutes Spent Total Time Spent with Patient: Total time spent is greater than 50% in coordination of care (as documented) at patient's floor/unit and/or counseling patient: Coding Level of Care Code 75830 Subseq Hosp Care Lvl 3 Diagnoses ESRD needing dialysis N18.6; Z99.2 Proteinuria R80.9 Hyperkalemia E87.5 Hypertension I10 Diabetes mellitus type 2 in obese E11.69; E66.9
[2021-07-28] MEDS: PATIROMER CALCIUM SORBITEX 8.4 GM PACK PO SCH (11:35)
[2021-07-28] MEDS ORDERED: fentaNYL citrate 100 MCG/2 ML VIAL ONE (12:59)
[2021-07-28] MEDS ORDERED: MIDAZOLAM HCL 1 MG/ML 2ML VIAL ONE (13:00)
[2021-07-28] MEDS ORDERED: LIDOCAINE 1% LOCAL 20 ML VIAL ONE (13:00)
[2021-07-28] MEDS ORDERED: HEPARIN SOD (PORCINE) 5,000 UNITS/ML VIAL ONE (13:00)
--- NOTE | 2021-07-28 13:11 | History & Physical Bridge Note ---
Date of Service July 28, 2021 History & Physical Bridge Note Patient for a permcath insertion today. I have discussed the risks options and benefits of the procedure with the patient. The patient understands the risks options and benefits and agrees to the procedure. I have examined the patient, reviewed the History & Physical and in the interval since the performance of the History & Physical I have noted the following changes of clinical significance: no changes noted
--- NOTE | 2021-07-28 13:45 | Pre Anesthesia Assessment ---
Date of Service July 28, 2021 Pre Sedation Assessment Vital Signs Temp Pulse Pulse Pulse Resp BP BP 07/28/21 12:40 36.8 C 76 18 114/69 07/28/21 11:29 36.5 C 73 17 110/69 07/28/21 08:00 36.6 C 77 16 118/71 07/28/21 03:28 36.8 C 82 18 106/68 07/28/21 01:32 84 07/27/21 23:35 37.1 C 90 19 111/69 07/27/21 19:35 36.7 C 84 19 116/72 07/27/21 16:21 36.9 C 84 20 124/71 Pulse Ox 07/28/21 12:40 94 07/28/21 11:29 95 07/28/21 08:00 95 07/28/21 03:28 93 07/28/21 01:32 07/27/21 23:35 96 07/27/21 19:35 94 07/27/21 16:21 94 Cardiovascular RRR, no murmur, no edema Respiratory normal respiratory effort, lungs clear to auscultation Pre-Sedation Airway Assessment Smoking Status: Never smoker Hx Sleep Apnea: Yes Short, Thick Neck: Yes Thyromental Distance: > or= 3.5 Finger Breadths Oral Cavity: + WNL Mallampati Class: II ASA: ASA4 NPO Status Date of Last Intake of Fluids: 07/28/21 Time of Last Intake of Fluids: 00:00 Date of Last Intake of Solid Food: 07/28/21 Time of Last Intake of Solid Foods: 21:00 Procedure Planning Contraindications for Sedation: none Current Medications Reviewed: Yes Notes The planned sedation has been discussed with the patient. Informed Consent was obtained. I have identified the patient, determined the appropriateness of s edation and have assessed the patient immediately prior to the procedure. All medicine(s) and interventions are by my order.
--- NOTE | 2021-07-28 14:07 | Post Operative Brief Note ---
Immediate Post Op Note v1 Date of Surgery July 28, 2021 Pre & Post Diagnosis Operation Date: 07/28/21 11:55 Pre-Op Diagnosis: acute kidney injury Post-Op Diagnosis: acute kidney injury I identified the patient and participated in the time-out.: Yes Procedure Operation Date: 07/28/21 11:55 Actual Procedures p Insertion of Perm Catheter, Right internal Jugular Approach, ultrasound localization of right internal jugular vein, fluroscopy for positioning, moderate sedation time [id number](Right) - Nav Salinas MD Surgeon Nav Salinas MD Geology Technician MD James Estimated Blood Loss 3 Findings Consistent with Post-Op Diagnosis Anesthesia Type RN Sedation Complications none Disposition Accompanied Patient To Recovery: No Disposition: Recovery Room
[2021-07-28] MEDS: LIDOCAINE 1% LOCAL 20 ML VIAL INJ ONE ×2 (14:12→14:13)
--- NOTE | 2021-07-28 14:12 | Post Anesthesia Assessment ---
Date of Service July 28, 2021 Post Sedation Assessment Vital Signs Temp Pulse Pulse Pulse Resp BP BP 07/28/21 14:10 80 16 115/78 07/28/21 14:05 79 16 117/79 07/28/21 14:00 79 16 117/79 07/28/21 13:55 73 18 117/78 07/28/21 13:50 80 18 124/82 07/28/21 13:45 80 18 122/81 07/28/21 12:40 36.8 C 76 18 114/69 07/28/21 11:29 36.5 C 73 17 110/69 07/28/21 08:00 36.6 C 77 16 118/71 07/28/21 03:28 36.8 C 82 18 106/68 07/28/21 01:32 84 07/27/21 23:35 37.1 C 90 19 111/69 07/27/21 19:35 36.7 C 84 19 116/72 07/27/21 16:21 36.9 C 84 20 124/71 Pulse Ox 07/28/21 14:10 100 07/28/21 14:05 100 07/28/21 14:00 100 07/28/21 13:55 100 07/28/21 13:50 100 07/28/21 13:45 100 07/28/21 12:40 94 07/28/21 11:29 95 07/28/21 08:00 95 07/28/21 03:28 93 07/28/21 01:32 07/27/21 23:35 96 07/27/21 19:35 94 07/27/21 16:21 94 Recovery Score Activity: Moves 4 extremities Respiration: Deep Breath/Cough Circulation: +/-20% PreAnes Value Consciousness: Fully Awake Oxygen Saturation: O2 needed for >90% Post Anesthesia Score: 9 Discharge Sedation Level of Care: Fast Track Phase II Post Sedation Plan On clinical assessment, the patient appears to have tolerated the sedation without complications. Patient is recovering as anticipated. Patient will continue to be monitored by nursing and may be discharged when sedation discharge criteria are met per below protocol. Upon Completions of procedure up to 15 minutes continue every 5 minute vital signs and the P.A.R. score; then discharge to a Phase I or Fast Track to Phase II per the following guidelines: * Discharge Patient to appropriate Phase II area if PAR is 8 or greater or return to pre- procedure baseline. The post - procedure orders will be as directed. * If PAR score is less than 8 or not return to pre-procedure baseline then patient will follow Phase I monitoring till PAR is reached for Phase II. The Phase I may be done in procedure room or may call to secure a Phase I area. * If naloxone or flumazenil are used for reversal, hold in Phase I for continued monitoring from when last reversal dose was given for a minimum of 60 minutes or longer pending the nurse and/or physician discretion of patient condition before discharge to Phase II. Please call the Sedation Physician to re-evaluate and complete post-note for discharge to Phase II area. Do NOT discharge from procedure sedation or Phase 1 until post- sedation evaluation note is complete by procedure /sedation MD Sedation Discharge Instructions to be given to the patient at discharge to home.
--- NOTE | 2021-07-28 14:14 | Procedure Note ---
Angiogram Post Procedure Fluoroscopy Time (minutes): 0.4 Conscious Sedation Time (minutes): 16 Radiation (mGy): 22.86 Contrast: none Post Operative Report Pre & Post Diagnosis Operation Date: 07/28/21 11:55 Pre-Op Diagnosis: acute kidney injury Post-Op Diagnosis: acute kidney injury I identified the patient and participated in the time-out.: Yes Procedure Operation Date: 07/28/21 11:55 Actual Procedures p Insertion of Perm Catheter, Right internal Jugular Approach, ultrasound localization of right internal jugular vein, fluroscopy for positioning, moderate sedation time 4287-0355(Right) - Nav Salinas MD Surgeon Nav Salinas MD Flagsetter MD James Estimated Blood Loss 3 Findings Consistent with Post-Op Diagnosis Specimens none Drains none Anesthesia Type RN Sedation Disposition Accompanied Patient To Recovery: No Disposition: Recovery Room Indications This is a 55 year old gentleman with acute renal failure in need of hemodialysis access. He presents for permcath placement. Description of Procedure Patient was taken to the angio suite and placed in the supine position. The right side of the neck and chest wall were prepped and draped in a sterile manner. A team timeout was performed. Local anesthesia was then administered to the appropriate areas of the neck and chest wall. Ultrasound was then used to locate the right internal jugular vein. The vein compressed easily, had no filing defects, and was patent. The vein was then punctured under direct ultrasound imaging. A guidewire was then passed centrally under fluoroscopic imaging. A stab wound was then made in the anterior chest wall and a 19 cm permcath was passed from the stab wound on the chest wall to the puncture site on the neck. The puncture site was then dilated till the 14Fr peel away sheath was inserted. The permcath was then inserted through the sheath to a central position in the distal superior vena cava. The peel away sheath was then removed. The catheter was then sutured in place using nylon sutures. The puncture was then closed using a 4-0 Vicryl subcuticular suture. Dermabond was used for a dressing on the puncture site. Both ports aspirated and flushed easily and were then packed with heparin. A sterile dressing was applied to the catheter. The patient left the angio suite in good condition and tolerated the procedure well. Dr. Salinas was present and scrubbed for the entirety of the procedure. I attest to the content of the Intraoperative Record and any orders documented therein. Any exceptions are noted below.
--- NOTE | 2021-07-28 20:02 | Hospitalist Progress Note ---
Date of Service July 28, 2021 Assessment & Plan (1) Cardiorenal syndrome with renal failure: Plan: Severe systolic CHF along with severe renal failure - baseline creatinine was 3.4 in 02/2021 and 3.5 in 05/2021 as per long term labs Creatinine was up to 8 on admission s/p IV thiazide and IV lasix with good response to such on the first night of admission however, creatinine worsened, and K jorge again, diuretics held Creatinine now has trended upward to 8.6, BUN up to 88, is with an anion gap metabolic acidosis, volume overloaded but that has improved somewhat. Hyperkalemia has improved also with treatment with Veltassa and sodium bicarbonate but remains mildly elevated. Blood pressures are stable, continues to be making urine. appreciate both cardiology and nephrology consultations records from [facility] in [place] requested but not received yet Patient now agreeable to dialysis. Patient hae dialysis cath placed and is now awaiting dialysis (first session) today. -Started sodium bicarbonate 650 mg p.o. twice daily -Continue daily Veltassa upon discharge -Has received 3 doses of IV Venofer for anemia as well as Epogen -Blood pressure control as below -Discontinued home ARB, HCTZ, bumetanide, and furosemide -Continue low-sodium, low potassium/renal diet -Follow BMP in the morning -Follow urine output -Checking serologies for renal failure to include SHAWNA, ANCA, complement, free kappa lambda light chain, glomerular basement membrane antibody, phospholipase A2 receptor antibody, UPEP, SPEP -Needs to start dialysis in the very near future -Start sevelamer 800 mg p.o. 3 times daily (2) CKD (chronic kidney disease): Plan: Unknown stage prior to 02/2021, but was seen by nephrology in 2020 in [place] and told he may need dialysis in 3-4 years Creatinine at the long term on 02/2021 was 3.4 and was 3.5 in 05/2021 await records to see what labs were like in 2020, but regardless, he is at the point of needing dialysis as above Currently with end-stage renal disease renal u/s without obstruction but cannot visualize left kidney-either atrophic or congenitally absent significant nephropathy based on 3+ protein on u/a and high urine Protein/Cr ratio likely diabetic nephropathy and/or HTN nephrosclerosis - or both Appreciate nephrology consultation-needs dialysis as above (3) HFrEF (heart failure with reduced ejection fraction): Plan: Previously followed with cardiology at [facility] in [place] Has a long-standing ICD, with one exchange of the device since the original implantation Interrogation performed here and no issues as per nurse that performed the interrogation, however the paperwork from the interrogation cannot be found Will request previous cardiology records-have not arrived yet echo here noted - EF 25-30% global hypokinesis with septal akinesis s/p diuresis upon admission for volume overload, but held for rising creatinine as above cont coreg Discontinue diuretics BMP am ARB stopped Cont hydralazine but lower dose from 100 to 50 mg TID due to lightheadedness and brief syncope with higher doses Added imdur 30mg daily for preload and afterload reduction Appreciate cardiology/nephrology recommendations given his renal function high likelihood of needing HD to control his fluid status (4) Elevated troponin: Plan: no evidence of ACS trop elevation 0.07/0.07/0.07 likely demand ischemia in setting of decompensated CHF OR it is high from his severely impaired renal function echo noted - septal akinesis (previous [place]??) Although patient thinks he had a cardiac catheterization many years ago and was told there was no blockages. He has no history of cardiac stents that he knows of awaiting records from [place] (5) Abnormal ECG: Plan: T wave inversions anterolateral Ischemia is not ruled out although no typical symptoms for such at this time (6) Hyperkalemia: Plan: 2nd to severe renal impairment, now improved but remains mildly elevated today Continue Veltassa daily Started sodium bicarbonate 650 mg p.o. twice daily repeat BMP am (7) Anemia: Plan: Hemoglobin 8-9, MCV low at 80 Transferrin sat 11% ferritin wnl IV venofer given x3 doses Epogen given on 07/26 Anemia appears most c/w ACD from CKD Folate wnl B12 level normal TSH wnl CBC in am Continue p.o. ferrous sulfate (8) Hypertension: Plan: Blood pressures are now much better controlled and on the low side at times with a brief episode of syncope after coughing on the night of 07/25 Cont coreg 50 mg p.o. twice daily Cont hydralazine - this was increased to 100mg TID at admission but will now decrease to 50 mg p.o. 3 times daily due to lightheadedness Cont imdur 30mg daily - this was started at admission Discontinued all home diuretics including Bumex, furosemide, HCTZ ARB discontinued due to severe renal impairment, hyperkalemia, etc. (9) Gout: Plan: No acute issues Continue home allopurinol which is renally dosed (10) Diabetes mellitus type 2 in obese: Plan: Blood sugars here fairly well controlled except for some mild hyperglycemia today He is refusing the NovoLog at times Increase Lantus to 10 units SQ at bedtime novolog SSI if he is willing to take it a1c pending adjust insulins as needed (11) Obesity: Plan: MORBID Obesity, BMI 40-45 Needs weight loss (12) ICD (implantable cardioverter-defibrillator) in place: Plan: s/p implantation in 2006 then had device exchanged at some point since then he thinks about 10 years later Interrogation here without issues Cardiology following Telemetry here without significant abnormalities, sinus rhythm (13) Proteinuria: Plan: 3+ protein on u/a urine protein/Cr ratio elevated likely diabetic nephropathy or hypertensive nephrosclerosis - or both now with significant renal failure as above nephrology assistance appreciated Previously on losartan but now discontinued as above Plan: DVT prophylaxis - heparin SC Disposition-continued stay in PCU, but as above, patient adamant about discharge back to long term on 07/27 so that he can call his personally and his coffee blender to discuss the possibility of going on hemodialysis Admission and Anticipated Discharge Date Admission Date: July 23, 2021 Subjective 55 yo male is reports no new symptoms. He is awaiting dialysis. Review of Systems Review of Systems: All systems reviewed & are unremarkable except as noted in HPI & below Physical Exam Physical Exam: gen - obese, NAD neck - mild JVD mouth - MMM heart - RRR, s1 s2 lungs - decreased BS bases, no rales or wheeze abd - soft NT ND BS+ ext - <1+ edema b/l, pulses 2+ b/l Results & Data Results & Data ([facility]) Vital Signs (Past 12 Hours) Vital Signs Temp Pulse Pulse Pulse Resp BP BP 07/28/21 19:20 81 141/88 H 07/28/21 19:00 83 158/92 H 07/28/21 18:40 82 139/88 07/28/21 18:20 82 143/87 H 07/28/21 18:00 83 149/85 H 07/28/21 17:40 36.5 C 83 07/28/21 15:04 36.4 C L 78 18 114/68 07/28/21 14:29 36.5 C 79 14 117/69 07/28/21 14:15 80 16 144/77 H 07/28/21 14:10 80 16 115/78 07/28/21 14:05 79 16 117/79 07/28/21 14:00 79 16 117/79 07/28/21 13:55 73 18 117/78 07/28/21 13:50 80 18 124/82 07/28/21 13:45 80 18 122/81 07/28/21 12:40 36.8 C 76 18 114/69 07/28/21 11:29 36.5 C 73 17 110/69 Pulse Ox Pulse Ox 07/28/21 19:20 07/28/21 19:00 07/28/21 18:40 07/28/21 18:20 07/28/21 18:00 91 07/28/21 17:40 07/28/21 15:04 91 07/28/21 14:29 91 07/28/21 14:15 100 07/28/21 14:10 100 07/28/21 14:05 100 07/28/21 14:00 100 07/28/21 13:55 100 07/28/21 13:50 100 07/28/21 13:45 100 07/28/21 12:40 94 07/28/21 11:29 95 PG Care Time/CCT Total # of Minutes Spent Total Time Spent with Patient: Total time spent is greater than 50% in coordination of care (as documented) at patient's floor/unit and/or counseling patient: Coding Level of Care Code 27366 Subseq Hosp Care Lvl 2 Diagnoses Cardiorenal syndrome with renal failure I13.10 CKD (chronic kidney disease) N18.9 Chronic kidney disease stage: unspecified stage HFrEF (heart failure with reduced ejection fraction) I50.20 Elevated troponin R77.8 Abnormal ECG R94.31 Hyperkalemia E87.5 Anemia D64.9 Hypertension I10 Gout M10.9 Diabetes mellitus type 2 in obese E11.69; E66.9 Obesity E66.9 ICD (implantable cardioverter-defibrillator) in place Z95.810 Proteinuria R80.9 Time Spent (min) 25 (1) CKD (chronic kidney disease) Chronic kidney disease stage: unspecified stage Qualified Code(s): N18.9 - Chronic kidney disease, unspecified
[2021-07-28] MEDS: ATORVASTATIN 40 MG TAB PO SCH (20:34)
[2021-07-28] MEDS: INSULIN GLARGINE SOLOSTAR 100 UNITS/ML 3 ML PEN SC SCH (20:59)
[2021-07-29] MEDS: HEPARIN SOD 5,000 UNIT/0.5 ML VIAL SQ SCH ×3 (05:31→21:06)
[2021-07-29 06:49] LABS: Hematocrit (blood only) 25.6 % (42-52); Hemoglobin 8.4 g/dL (14.0-18.0); Mean Corpuscular Hemoglobin 26.4 pg (25-34); Mean Corpuscular Hgb Conc 32.8 g/dL (32-36); Mean Corpuscular Volume 80.5 fL (80-100); Mean Platelet Volume 9.1 fL (7.4-10.4); Nucleated RBC # (auto) 0.02 K/uL (0-0); Nucleated RBC % (auto) 0.2 %; Platelet Count 246 K/uL (130-400); RDW Coefficient of Variation 16.7 % (11.5-14.5); RDW Standard Deviation 48.5 fL (36.4-46.3); Red Blood Count 3.18 M/uL (4.7-6.1); White Blood Count 9.51 K/uL (4.8-10.8)
[2021-07-29 07:18] LABS: BUN Creatinine Ratio 9.3 (10-20); Calcium 7.7 mg/dl (8.5-10.1); Est GFR (African American) 6.6 ml/min; Est GFR (Non-African American) 5.7 ml/min; Phosphorus 6.4 mg/dl (2.5-4.9); Potassium 4.5 mmol/L (3.5-5.1)
[2021-07-29] MEDS: hydrALAZINE TAB 50 MG TAB PO SCH ×3 (08:27→19:54)
[2021-07-29] MEDS: carvediloL 25 MG TAB PO SCH ×2 (08:28→19:55)
[2021-07-29] MEDS: SODIUM BICARBONATE 650 MG TAB PO SCH ×2 (08:28→19:56)
[2021-07-29] MEDS: ASPIRIN 81 MG ECTAB PO SCH (08:29)
[2021-07-29] MEDS: ISOSORBIDE MONO EXTENDED REL 30 MG TABCR PO SCH (08:29)
[2021-07-29] MEDS: SEVELAMER HCL 800 MG TABLET PO SCH ×3 (08:29→17:28)
[2021-07-29] MEDS: INSULIN ASPART PER UNIT SC SCH ×4 (08:36→21:02)
[2021-07-29] MEDS: IRON SUCROSE 200 MG in 0.9 % SODIUM CHLORIDE 100 ML IV SCH (08:36)
[2021-07-29] MEDS: allopurinoL 100 MG TAB PO SCH (10:23)
[2021-07-29] MEDS: DOCUSATE SODIUM 100 MG CAP PO SCH (10:23)
--- NOTE | 2021-07-29 11:12 | Nephrology Progress Note ---
Date of Service July 29, 2021 Assessment & Plan (1) ESRD needing dialysis: (2) Proteinuria: (3) Hyperkalemia: (4) Hypertension: (5) Diabetes mellitus type 2 in obese: Plan: YNE with CKD,admitted with progressive shortness of breath, volume overload, respiratory status improved with IV diuretics with significant improvement in volume status. cr was 3.5 in Feb and Decemebr of 2020. UA with 3 + P, 1+ hematuria, USG atrophic rt kidney, ? absent left kidney, pending old records. Rapid worsening of renal functionwith multiple stigmata of advanced, end-stage renal disease including anemia, hyperkalemia, metabolic acidosis and hyperphosphatemia. Creatinine was around 3.5 in February 2021. Had TDC on 07/28/21 and had first HD. -- Plan for 2nd dialysis treatment today. --on venofer, CASSI, Renvela 1 tab TIDM --left arm nephrology precaution --can be discharged when out pt HD set up. Will follow Admission and Anticipated Discharge Date Admission Date: July 23, 2021 Leonie Palafox was seen and evaluated this am. Overall he continues to feel fine, denies SOB, chest pain. Had TDC and 1st HD yesterday, tolerated well. Review of Systems Review of Systems: Detailed review of system was otherwise unremarkable. Physical Exam Constitutional: WD/WN, vitals as above no acute distress Eyes: + anicteric sclerae Respiratory: no respiratory distress Auscultation: lungs clear to auscultation bilaterally Cardiovascular: Rate/Rhythm: regular rate and regular rhythm Heart Sounds: normal S1 and normal S2 Extremities: + edema ( trace bilateral lower extremity edema.) Skin: no rashes Neurologic: no focal motor deficits and not confused Psychiatric: Orientation: alert and oriented x 3 Results & Data ([facility]) Vital Signs (Past 12 Hours) Vital Signs Temp Pulse Pulse Pulse Resp BP BP 07/29/21 11:00 76 116/71 07/29/21 10:40 76 109/67 07/29/21 10:20 79 116/71 07/29/21 10:00 82 115/73 07/29/21 09:53 36.8 C 83 07/29/21 08:01 36.7 C 83 18 134/76 07/29/21 03:54 36.8 C 86 16 120/74 07/28/21 23:56 86 07/28/21 23:20 36.8 C 88 22 115/72 Pulse Ox 07/29/21 11:00 07/29/21 10:40 07/29/21 10:20 07/29/21 10:00 07/29/21 09:53 07/29/21 08:01 93 07/29/21 03:54 95 07/28/21 23:56 07/28/21 23:20 92 PG Care Time/CCT Total # of Minutes Spent Total Time Spent with Patient: Total time spent is greater than 50% in coordination of care (as documented) at patient's floor/unit and/or counseling patient: Coding Level of Care Code 37187 Subseq Hosp Care Lvl 3 Diagnoses ESRD needing dialysis N18.6; Z99.2 Proteinuria R80.9 Hyperkalemia E87.5 Hypertension I10 Diabetes mellitus type 2 in obese E11.69; E66.9
[2021-07-29] MEDS: PATIROMER CALCIUM SORBITEX 8.4 GM PACK PO SCH (12:23)
[2021-07-29 16:46] LABS: Albumin 2.4 g/dL (3.8-4.8); Alpha 1 Globulin 0.5 g/dL (0.2-0.3); Alpha 2 Globulin 1.1 g/dL (0.5-0.9); Beta-1-Globulin 0.3 g/dL (0.4-0.6); Beta-2-Globulin 0.4 g/dL (0.2-0.5); Gamma Globulin 0.9 g/dL (0.8-1.7); Monoclonal Protein Band 1 0.3 g/dL (NONE DETECTED); Monoclonal Protein Band 2 DNR g/dL (NONE DETECTED); Monoclonal Protein Band 3 DNR g/dL (NONE DETECTED); Total Protein 5.6 g/dL (6.1-8.1)
[2021-07-29] MEDS ORDERED: BENZONATATE 100 MG CAPSULE PO ONE (18:57)
[2021-07-29] MEDS: guaiFENesin 600 MG TABCR PO SCH (19:53)
[2021-07-29] MEDS: ATORVASTATIN 40 MG TAB PO SCH (19:55)
--- NOTE | 2021-07-29 20:14 | Hospitalist Progress Note ---
Date of Service July 29, 2021 Assessment & Plan (1) Cardiorenal syndrome with renal failure: Plan: Severe systolic CHF along with severe renal failure - baseline creatinine was 3.4 in 02/2021 and 3.5 in 05/2021 as per group home labs Creatinine was up to 8 on admission s/p IV thiazide and IV lasix with good response to such on the first night of admission however, creatinine worsened, and K jorge again, diuretics held Creatinine now has trended upward to 8.6, BUN up to 88, is with an anion gap metabolic acidosis, volume overloaded but that has improved somewhat. Hyperkalemia has improved also with treatment with Veltassa and sodium bicarbonate but remains mildly elevated. Blood pressures are stable, continues to be making urine. appreciate both cardiology and nephrology consultations records from [facility] in [place] requested but not received yet Patient now agreeable to dialysis. Patient hae dialysis cath placed and is now awaiting dialysis (first session) today. -Stopped sodium bicarbonate 650 mg p.o. twice daily as patient is now getting HD. -received second HD on 07/29 -Awaiting HD discharge plan. Once his HD is set up for next week, patient can be discharged. -Awaiting confirmation from case management --- Plan for 2nd dialysis treatment today. --on venofer, CASSI, Renvela 1 tab TIDM -Blood pressure control as below -On isosorbide moninitrate, and hydralazine 50 mg PO TID. -Discontinued home ARB, HCTZ, bumetanide, and furosemide -Continue low-sodium, low potassium/renal diet -Follow BMP in the morning -Follow urine output -Checking serologies for renal failure to include SHAWNA, ANCA, complement, free kappa lambda light chain, glomerular basement membrane antibody, phospholipase A2 receptor antibody, UPEP, SPEP (2) CKD (chronic kidney disease): Plan: Unknown stage prior to 02/2021, but was seen by nephrology in 2020 in [place] and told he may need dialysis in 3-4 years Creatinine at the group home on 02/2021 was 3.4 and was 3.5 in 05/2021 await records to see what labs were like in 2020, but regardless, he is at the point of needing dialysis as above Currently with end-stage renal disease renal u/s without obstruction but cannot visualize left kidney-either atrophic or congenitally absent significant nephropathy based on 3+ protein on u/a and high urine Protein/Cr ratio likely diabetic nephropathy and/or HTN nephrosclerosis - or both Appreciate nephrology consultation-needs dialysis as above (3) HFrEF (heart failure with reduced ejection fraction): Plan: Previously followed with cardiology at [facility] in [place] Has a long-standing ICD, with one exchange of the device since the original implantation Interrogation performed here and no issues as per nurse that performed the interrogation, however the paperwork from the interrogation cannot be found Will request previous cardiology records-have not arrived yet echo here noted - EF 25-30% global hypokinesis with septal akinesis s/p diuresis upon admission for volume overload, but held for rising creatinine as above cont coreg Discontinue diuretics BMP am ARB stopped Cont hydralazine but lower dose from 100 to 50 mg TID due to lightheadedness and brief syncope with higher doses Added imdur 30mg daily for preload and afterload reduction Appreciate cardiology/nephrology recommendations given his renal function high likelihood of needing HD to control his fluid status (4) Elevated troponin: Plan: no evidence of ACS trop elevation 0.07/0.07/0.07 likely demand ischemia in setting of decompensated CHF OR it is high from his severely impaired renal function echo noted - septal akinesis (previous [place]??) Although patient thinks he had a cardiac catheterization many years ago and was told there was no blockages. He has no history of cardiac stents that he knows of awaiting records from [place] (5) Abnormal ECG: Plan: T wave inversions anterolateral Ischemia is not ruled out although no typical symptoms for such at this time (6) Hyperkalemia: Plan: 2nd to severe renal impairment, now improved but remains mildly elevated today Was on Veltassa daily, however this is discontinued as patient is now tolerating Hemodialysis Stopped sodium bicarbonate 650 mg p.o. twice daily (7) Anemia: Plan: Hemoglobin 8-9, MCV low at 80 Transferrin sat 11% ferritin wnl IV venofer given x3 doses Epogen given on 07/26 Anemia appears most c/w ACD from CKD Folate wnl B12 level normal TSH wnl CBC in am Continue p.o. ferrous sulfate (8) Hypertension: Plan: Blood pressures are now much better controlled and on the low side at times with a brief episode of syncope after coughing on the night of 07/25 Cont coreg 50 mg p.o. twice daily Cont hydralazine - this was increased to 100mg TID at admission but will now de crease to 50 mg p.o. 3 times daily due to lightheadedness Cont imdur 30mg daily - this was started at admission Discontinued all home diuretics including Bumex, furosemide, HCTZ ARB discontinued due to severe renal impairment, hyperkalemia, etc. (9) Gout: Plan: No acute issues Continue home allopurinol which is renally dosed (10) Diabetes mellitus type 2 in obese: Plan: Blood sugars here fairly well controlled except for some mild hyperglycemia today He is refusing the NovoLog at times Increase Lantus to 10 units SQ at bedtime novolog SSI if he is willing to take it a1c pending adjust insulins as needed (11) Obesity: Plan: MORBID Obesity, BMI 40-45 Needs weight loss (12) ICD (implantable cardioverter-defibrillator) in place: Plan: s/p implantation in 2006 then had device exchanged at some point since then he thinks about 10 years later Interrogation here without issues Cardiology following Telemetry here without significant abnormalities, sinus rhythm (13) Proteinuria: Plan: 3+ protein on u/a urine protein/Cr ratio elevated likely diabetic nephropathy or hypertensive nephrosclerosis - or both now with significant renal failure as above nephrology assistance appreciated Previously on losartan but now discontinued as above Plan: DVT prophylaxis - heparin SC Disposition-once Hemodialysis is set up, patient can be discharged Admission and Anticipated Discharge Date Admission Date: July 23, 2021 Subjective Patient reports having a new cough today. Currently cough is non productive. Review of Systems Review of Systems: All systems reviewed & are unremarkable except as noted in HPI & below Physical Exam Physical Exam: gen - obese, NAD neck - mild JVD mouth - MMM heart - RRR, s1 s2 lungs - decreased BS bases, no rales or wheeze abd - soft NT ND BS+ ext - <1+ edema b/l, pulses 2+ b/l Results & Data Results & Data ([facility]) Vital Signs (Past 12 Hours) Vital Signs Temp Pulse Pulse Pulse Resp BP BP 07/29/21 19:25 37.1 C 87 18 114/69 07/29/21 18:00 07/29/21 15:28 36.8 C 83 20 07/29/21 13:10 36.7 C 79 07/29/21 12:40 79 125/75 07/29/21 12:20 75 114/75 07/29/21 12:00 79 109/64 07/29/21 11:53 36.7 C 73 18 117/68 07/29/21 11:40 73 117/68 07/29/21 11:20 76 117/73 07/29/21 11:00 76 116/71 07/29/21 10:40 76 109/67 07/29/21 10:20 79 116/71 07/29/21 10:00 82 115/73 07/29/21 09:53 36.8 C 83 BP Pulse Ox Pulse Ox 07/29/21 19:25 91 07/29/21 18:00 91 07/29/21 15:28 127/74 91 07/29/21 13:10 125/75 07/29/21 12:40 07/29/21 12:20 07/29/21 12:00 07/29/21 11:53 97 07/29/21 11:40 07/29/21 11:20 07/29/21 11:00 07/29/21 10:40 07/29/21 10:20 07/29/21 10:00 07/29/21 09:53 PG Care Time/CCT Total # of Minutes Spent Total Time Spent with Patient: Total time spent is greater than 50% in coordination of care (as documented) at patient's floor/unit and/or counseling patient: Coding Level of Care Code 48882 Subseq Hosp Care Lvl 3 Diagnoses Cardiorenal syndrome with renal failure I13.10 CKD (chronic kidney disease) N18.9 Chronic kidney disease stage: unspecified stage HFrEF (heart failure with reduced ejection fraction) I50.20 Elevated troponin R77.8 Abnormal ECG R94.31 Hyperkalemia E87.5 Anemia D64.9 Hypertension I10 Gout M10.9 Diabetes mellitus type 2 in obese E11.69; E66.9 Obesity E66.9 ICD (implantable cardioverter-defibrillator) in place Z95.810 Proteinuria R80.9 (1) CKD (chronic kidney disease) Chronic kidney disease stage: unspecified stage Qualified Code(s): N18.9 - Chronic kidney disease, unspecified
[2021-07-29] MEDS: INSULIN GLARGINE SOLOSTAR 100 UNITS/ML 3 ML PEN SC SCH (21:05)
[2021-07-30] MEDS: HEPARIN SOD 5,000 UNIT/0.5 ML VIAL SQ SCH ×3 (06:01→20:43)
[2021-07-30 06:45] LABS: Hematocrit (blood only) 24.1 % (42-52); Mean Corpuscular Hemoglobin 26.8 pg (25-34); Mean Corpuscular Hgb Conc 33.2 g/dL (32-36); Mean Corpuscular Volume 80.9 fL (80-100); Mean Platelet Volume 8.8 fL (7.4-10.4); Platelet Count 201 K/uL (130-400); RDW Coefficient of Variation 17.1 % (11.5-14.5); RDW Standard Deviation 49.1 fL (36.4-46.3); Red Blood Count 2.98 M/uL (4.7-6.1)
[2021-07-30] MEDS ORDERED: BENZONATATE 100 MG CAPSULE PO PRN (06:57)
[2021-07-30 07:39] LABS: Albumin Level 2.9 gm/dl (3.4-5.0); Calcium 7.6 mg/dl (8.5-10.1); Creatinine Clr Calc Pharmacy 12.8 ml/min; Est GFR (African American) 7.1 ml/min; Est GFR (Non-African American) 6.1 ml/min; Phosphorus 5.6 mg/dl (2.5-4.9); Potassium 4.2 mmol/L (3.5-5.1)
[2021-07-30] MEDS ORDERED: EPOETIN ALFA 20,000 UNITS/ML VIAL IV ONE (08:28)
[2021-07-30] MEDS: carvediloL 25 MG TAB PO SCH ×2 (08:32→20:45)
[2021-07-30] MEDS: DOCUSATE SODIUM 100 MG CAP PO SCH (08:32)
[2021-07-30] MEDS: ISOSORBIDE MONO EXTENDED REL 30 MG TABCR PO SCH (08:32)
[2021-07-30] MEDS: allopurinoL 100 MG TAB PO SCH (08:32)
[2021-07-30] MEDS: ASPIRIN 81 MG ECTAB PO SCH (08:32)
[2021-07-30] MEDS: FERROUS SULFATE 325 MG TAB PO SCH (08:32)
[2021-07-30] MEDS: SEVELAMER HCL 800 MG TABLET PO SCH ×3 (08:33→16:44)
[2021-07-30] MEDS: guaiFENesin 600 MG TABCR PO SCH ×2 (08:33→20:44)
[2021-07-30] MEDS: INSULIN ASPART PER UNIT SC SCH ×4 (08:45→20:46)
[2021-07-30] MEDS: hydrALAZINE TAB 50 MG TAB PO SCH ×3 (08:46→20:45)
[2021-07-30] MEDS: NEPHROCAPS PO SCH (09:24)
[2021-07-30] MEDS: IRON SUCROSE 200 MG in 0.9 % SODIUM CHLORIDE 100 ML IV SCH (09:25)
--- NOTE | 2021-07-30 11:59 | Nephrology Progress Note ---
Date of Service July 30, 2021 Assessment & Plan (1) ESRD needing dialysis: (2) Proteinuria: (3) Hyperkalemia: (4) Hypertension: (5) Diabetes mellitus type 2 in obese: Plan: YEN with CKD,admitted with progressive shortness of breath, volume overload, respiratory status improved with IV diuretics with significant improvement in volume status. cr was 3.5 in Feb and Decemebr of 2020. UA with 3 + P, 1+ hematuria, USG atrophic rt kidney, ? absent left kidney, pending old records. Rapid worsening of renal functionwith multiple stigmata of advanced, end-stage renal disease including anemia, hyperkalemia, metabolic acidosis and hyperphosphatemia. Creatinine was around 3.5 in February 2021. Had TDC on 07/28/21 and had first HD. -- Plan for 4h dialysis treatment today, next HD Monday or Monday next week depending on outpatient dialysis scheduled. --on venofer, CASSI, Renvela 1 tab TIDM --left arm nephrology precaution --can be discharged when out pt HD set up. Will follow Admission and Anticipated Discharge Date Admission Date: July 23, 2021 Leonie Palafox was seen and evaluated this am. Overall he continues to feel fine, denies SOB, chest pain. has been tolerating dialysis, had 2nd dialysis treatment for 3 hours yesterday. Blood pressure, electrolyte, volume status acceptable. Review of Systems Review of Systems: Detailed review of system was otherwise unremarkable. Physical Exam Constitutional: WD/WN, vitals as above no acute distress Eyes: + anicteric sclerae Respiratory: no respiratory distress Auscultation: lungs clear to auscultation bilaterally Cardiovascular: Rate/Rhythm: regular rate and regular rhythm Heart Sounds: normal S1 and normal S2 Extremities: + edema ( trace bilateral lower extremity edema.) Skin: no rashes Neurologic: no focal motor deficits and not confused Psychiatric: Orientation: alert and oriented x 3 Results & Data ([facility]) Vital Signs (Past 12 Hours) Vital Signs Temp Pulse Pulse Pulse Resp BP BP 07/30/21 11:20 76 120/76 07/30/21 10:55 76 110/80 07/30/21 10:42 36.7 C 79 07/30/21 07:50 36.5 C 85 16 124/75 07/30/21 06:45 80 07/30/21 04:00 36.7 C 79 12 03/18/22 00:30 88 BP Pulse Ox 07/30/21 11:20 07/30/21 10:55 07/30/21 10:42 07/30/21 07:50 94 07/30/21 06:45 07/30/21 04:00 136/87 90 07/30/21 00:30 PG Care Time/CCT Total # of Minutes Spent Total Time Spent with Patient: Total time spent is greater than 50% in coordination of care (as documented) at patient's floor/unit and/or counseling patient: Coding Level of Care Code 82595 Subseq Hosp Care Lvl 3 Diagnoses ESRD needing dialysis N18.6; Z99.2 Proteinuria R80.9 Hyperkalemia E87.5 Hypertension I10 Diabetes mellitus type 2 in obese E11.69; E66.9
--- NOTE | 2021-07-30 15:36 | Hospitalist Progress Note ---
Date of Service July 30, 2021 Assessment & Plan (1) Cardiorenal syndrome with renal failure: Plan: - Severe systolic CHF along with severe renal failure - baseline creatinine was 3.4 in 02/2021 and 3.5 in 05/2021 as per [facility] labs - Creatinine was up to 8 on admission -s/p IV thiazide and IV lasix with good response to such on the first night of admission; however, creatinine worsened, and K jorge again, diuretics held. Creatinine continued to uptrend with an anion gap acidosis and volume overload. Hyperkalemia did transiently improved with Veltassa but did not normalize. Nephrology was consulted, patient agreeable to dialysis. Permacath was placed and patient is moving to Monday dialysis schedule -received second HD on 07/29, third session 07/30 -On isosorbide moninitrate, and hydralazine 50 mg PO TID. -Discontinued home ARB, HCTZ, bumetanide, and furosemide -Continue low-sodium, low potassium/renal diet -Follow BMP in the morning -Follow urine output -Checking serologies for renal failure to include SHAWNA, ANCA, complement, free kappa lambda light chain, glomerular basement membrane antibody, phospholipase A2 receptor antibody, UPEP, SPEP -Present requesting third dialysis treatment prior to discharge. Will have erica lysis session today, review will be able to accept him back to facility tomorrow and will provide transfer form to [facility] on Monday and will have Monday dialysis thereafter (2) CKD (chronic kidney disease): Plan: -Unknown stage prior to 02/2021, but was seen by nephrology in 2020 in [facility] and told he may need dialysis in 3-4 years -Creatinine at the [facility] on 02/2021 was 3.4 and was 3.5 in 05/2021 -Currently with end-stage renal disease -renal u/s without obstruction but cannot visualize left kidney-either atrophic or congenitally absent -significant nephropathy based on 3+ protein on u/a and high urine Protein/Cr ratio -likely diabetic nephropathy and/or HTN nephrosclerosis - or both -Appreciate nephrology consultation-needs dialysis as above Continue Renvela 1 tab 3 times daily M Pending dialysis today. Hemoglobin 8.0 creatinine 8.69 today. Phosphorus 5.6, potassium 4.2. No respiratory instability. (3) HFrEF (heart failure with reduced ejection fraction): Plan: -Previously followed with cardiology at [facility] in [place] -Has a long-standing ICD, with one exchange of the device since the original implantation -Interrogation performed here and no issues as per nurse that performed the interrogation, however the paperwork from the interrogation cannot be found - Pending outpt cardiology records-have not arrived yet - echo here noted - EF 25-30% - global hypokinesis with septal akinesis - dialysis as above - cont coreg - Discontinue diuretics, on dialysis - BMP am - ARB stopped - Cont hydralazine but lower dose from 100 to 50 mg TID due to lightheadedness and brief syncope with higher doses - Added imdur 30mg daily for preload and afterload reduction - Appreciate cardiology/nephrology recommendations -Continue to get ongoing Monday dialysis as outpatient (4) Elevated troponin: Plan: -no evidence of ACS -trop elevation 0.07/0.07/0.07 likely demand ischemia in setting of decomp ensated CHF OR it is high from his severely impaired renal function -echo noted - septal akinesis (previous ND??) Although patient thinks he had a cardiac catheterization many years ago and was told there was no blockages. He has no history of cardiac stents that he knows of -awaiting records from [place] (5) Abnormal ECG: Plan: As above (6) Hyperkalemia: Plan: 2nd to severe renal impairment, now improved but remains mildly elevated today Was on Veltassa daily, however this is discontinued as patient is now tolerating Hemodialysis Stopped sodium bicarbonate 650 mg p.o. twice daily (7) Anemia: Plan: Hemoglobin 8-9, MCV low at 80 Transferrin sat 11% ferritin wnl IV venofer given x3 doses Epogen given on 07/26 Anemia appears most c/w ACD from CKD Folate wnl B12 level normal TSH wnl Trend CBC Continue oral iron as outpatient (8) Hypertension: Plan: Blood pressures are now much better controlled and on the low side at times with a brief episode of syncope after coughing on the night of 07/25 Cont coreg 50 mg p.o. twice daily Cont hydralazine - this was increased to 100mg TID at admission but will now decrease to 50 mg p.o. 3 times daily due to lightheadedness Cont imdur 30mg daily - this was started at admission Discontinued all home diuretics including Bumex, furosemide, HCTZ ARB discontinued due to severe renal impairment, hyperkalemia, etc. Normotensive 07/30 (9) Gout: Plan: No acute issues Dialysis dosing of allopurinol (10) Diabetes mellitus type 2 in obese: Plan: Blood sugars here fairly well controlled except for some mild hyperglycemia today He is refusing the NovoLog at times Increase Lantus to 10 units SQ at bedtime novolog SSI if he is willing to take it a1c pending adjust insulins as needed (11) Obesity: Plan: MORBID Obesity, BMI 40-45 (12) ICD (implantable cardioverter-defibrillator) in place: Plan: s/p implantation in 2006 then had device exchanged at some point since then he thinks about 10 years later Interrogation here without issues Cardiology following Telemetry here without significant abnormalities, sinus rhythm (13) Proteinuria: Plan: 3+ protein on u/a urine protein/Cr ratio elevated likely diabetic nephropathy or hypertensive nephrosclerosis - or both now with significant renal failure as above nephrology assistance appreciated Previously on losartan but now discontinued as above Plan: DVT prophylaxis - heparin SC Disposition-undergoing dialysis today, transfer available for present tomorrow and will have Monday outpatient dialysis Admission and Anticipated Discharge Date Admission Date: July 23, 2021 Subjective Patient is seen at the bedside this morning. He reports he continues to have an intermittent cough without fever, chills, sweats, chest pain, chest pressure. He is not having difficulty breathing today. He is not lightheaded or dizzy. Understands he is going for dialysis today. Has questions regarding what a renal diet entails, otherwise no acute questions/concerns. Will have a 4-hour dialysis session today, and then moving forward will have Monday dialysis as outpatient Review of Systems Review of Systems: All systems reviewed & are unremarkable except as noted in Subjective Physical Exam Physical Exam: General: A&Ox3. NAD. Cooperative. HEENT: Atraumatic, normocephalic. Pulm: Air movement, no overt rales/rhonchi or wheezes symmetrical chest rise. No increase in work of breathing. No respiratory distress. Cardiac: RRR, -mrg. Radial pulses intact and symmetrical. Abdominal: Nontender, nondistended, soft. BS present. Extremities: Bilateral lower extremity edema 1+ in lower legs/ankles Results & Data Results & Data ([facility]) Vital Signs (Past 12 Hours) Vital Signs Temp Pulse Pulse Pulse Resp BP BP 07/30/21 14:40 75 122/76 07/30/21 14:20 74 122/76 07/30/21 14:00 77 123/77 07/30/21 13:40 76 108/75 07/30/21 13:20 75 110/76 07/30/21 13:00 71 103/74 07/30/21 12:40 65 90/56 L 07/30/21 12:20 73 93/64 L 07/30/21 12:00 76 105/72 07/30/21 11:40 74 106/76 07/30/21 11:20 76 120/76 07/30/21 10:55 76 110/80 07/30/21 10:42 36.7 C 79 07/30/21 07:50 36.5 C 85 16 124/75 07/30/21 06:45 80 07/30/21 04:00 36.7 C 79 12 BP Pulse Ox 07/30/21 14:40 07/30/21 14:20 07/30/21 14:00 07/30/21 13:40 07/30/21 13:20 07/30/21 13:00 07/30/21 12:40 07/30/21 12:20 07/30/21 12:00 07/30/21 11:40 07/30/21 11:20 07/30/21 10:55 07/30/21 10:42 07/30/21 07:50 94 07/30/21 06:45 07/30/21 04:00 136/87 90 PG Care Time/CCT Total # of Minutes Spent Total Time Spent with Patient: Total time spent is greater than 50% in coordination of care (as documented) at patient's floor/unit and/or counseling patient: Coding Level of Care Code 82493 Subseq Hosp Care Lvl 3 Diagnoses Cardiorenal syndrome with renal failure I13.10 CKD (chronic kidney disease) N18.9 Chronic kidney disease stage: unspecified stage HFrEF (heart failure with reduced ejection fraction) I50.20 Elevated troponin R77.8 Abnormal ECG R94.31 Hyperkalemia E87.5 Anemia D64.9 Hypertension I10 Gout M10.9 Diabetes mellitus type 2 in obese E11.69; E66.9 Obesity E66.9 ICD (implantable cardioverter-defibrillator) in place Z95.810 Proteinuria R80.9 (1) CKD (chronic kidney disease) Chronic kidney disease stage: unspecified stage Qualified Code(s): N18.9 - Chronic kidney disease, unspecified
[2021-07-30] MEDS: ATORVASTATIN 40 MG TAB PO SCH (20:43)
[2021-07-30] MEDS: INSULIN GLARGINE SOLOSTAR 100 UNITS/ML 3 ML PEN SC SCH (20:45)
[2021-07-31] MEDS: HEPARIN SOD 5,000 UNIT/0.5 ML VIAL SQ SCH (05:26)
[2021-07-31 06:42] LABS: Hematocrit (blood only) 25.9 % (42-52); Hemoglobin 8.5 g/dL (14.0-18.0); Mean Corpuscular Hemoglobin 26.8 pg (25-34); Mean Corpuscular Hgb Conc 32.8 g/dL (32-36); Mean Corpuscular Volume 81.7 fL (80-100); Nucleated RBC # (auto) 0.12 K/uL (0-0); Nucleated RBC % (auto) 1.2 %; Platelet Count 174 K/uL (130-400); RDW Coefficient of Variation 17.3 % (11.5-14.5); RDW Standard Deviation 49.4 fL (36.4-46.3); Red Blood Count 3.17 M/uL (4.7-6.1); White Blood Count 10.37 K/uL (4.8-10.8)
[2021-07-31 07:05] LABS: Albumin Level 3.1 gm/dl (3.4-5.0); BUN Creatinine Ratio 7.7 (10-20); Calcium 7.9 mg/dl (8.5-10.1); Creatinine Clr Calc Pharmacy 19.2 ml/min; Est GFR (African American) 11.2 ml/min; Est GFR (Non-African American) 9.7 ml/min; Phosphorus 4.3 mg/dl (2.5-4.9); Potassium 3.8 mmol/L (3.5-5.1)
[2021-07-31] MEDS: INSULIN ASPART PER UNIT SC SCH (07:49)
[2021-07-31] MEDS: ISOSORBIDE MONO EXTENDED REL 30 MG TABCR PO SCH (08:29)
[2021-07-31] MEDS: carvediloL 25 MG TAB PO SCH (08:29)
[2021-07-31] MEDS: guaiFENesin 600 MG TABCR PO SCH ×2 (08:29→08:36)
[2021-07-31] MEDS: hydrALAZINE TAB 50 MG TAB PO SCH (08:29)
[2021-07-31] MEDS: DOCUSATE SODIUM 100 MG CAP PO SCH ×2 (08:29→08:36)
[2021-07-31] MEDS: NEPHROCAPS PO SCH (08:29)
[2021-07-31] MEDS: SEVELAMER HCL 800 MG TABLET PO SCH (08:29)
[2021-07-31] MEDS: allopurinoL 100 MG TAB PO SCH (08:30)
[2021-07-31] MEDS: ASPIRIN 81 MG ECTAB PO SCH (08:30)
--- NOTE | 2021-07-31 12:20 | Nephrology Progress Note ---
Date of Service July 31, 2021 Assessment & Plan (1) ESRD needing dialysis: (2) Hypertension: Plan: YEN on advaned CKD. Requiring HD. TDC placed on 07/28/21. Catheter functioning well. First HD 07/28. No complications with dialysis. Adequate clearance with treatment yesterday. Electrolytes controlled. Plan to continue HD at [facility] post discharge. Medications appropriately dosed for kidney dysfunction. Renvela QAC for hyperphosphatemia. Venofer and Epogen provided during admission for anemia. Left arm precautions for future AVF placement. Admission and Anticipated Discharge Date Admission Date: July 23, 2021 Subjective No acute events overnight. Tolerated HD well yesterday. No complications with treatment. Review of Systems Review of Systems: All systems reviewed & are unremarkable except as noted in HPI & below Physical Exam Constitutional: WD/WN, vitals as above no acute distress Eyes: + anicteric sclerae Respiratory: no respiratory distress Auscultation: lungs clear to auscultation bilaterally Cardiovascular: Rate/Rhythm: regular rate and regular rhythm Heart Sounds: normal S1 and normal S2 Extremities: + edema ( trace bilateral lower extremity edema.) Skin: no rashes Neurologic: no focal motor deficits and not confused Psychiatric: Orientation: alert and oriented x 3 Results & Data ([facility]) Vital Signs (Past 12 Hours) Vital Signs Temp Pulse Pulse Pulse Pulse Resp BP 07/31/21 10:12 36.8 C 83 88 78 18 115/73 07/31/21 09:56 36.8 C 88 18 115/73 07/31/21 07:28 36.8 C 79 18 07/31/21 07:00 71 07/31/21 03:12 36.9 C 78 18 115/73 BP Pulse Ox 07/31/21 10:12 116/75 91 07/31/21 09:56 91 07/31/21 07:28 116/75 91 07/31/21 07:00 07/31/21 03:12 91 Laboratory Results Laboratory Results - last 24 hr 07/30/21 07/30/21 07/31/21 16:04 20:10 06:25 WBC 10.37 RBC 3.17 L Hgb 8.5 L Hct 25.9 L MCV 81.7 MCH 26.8 MCHC 32.8 RDW Std Deviation 49.4 H RDW Coeff of Emily 17.3 H Plt Count 174 MPV 9.0 Absolute Nucleated RBC 0.12 H Nucleated RBC % (auto) 1.2 Sodium Potassium Chloride Carbon Dioxide Anion Gap BUN Creatinine Est Cr Clr Drug Dosing Est GFR ( Amer) Est GFR (Non-Af Amer) BUN/Creatinine Ratio Glucose POC Glucose 130 H 183 H Calcium Phosphorus Albumin 07/31/21 07/31/21 06:25 07:09 WBC RBC Hgb Hct MCV MCH MCHC RDW Std Deviation RDW Coeff of Emily Plt Count MPV Absolute Nucleated RBC Nucleated RBC % (auto) Sodium 138 Potassium 3.8 Chloride 101 Carbon Dioxide 29 Anion Gap 8 BUN 46 H D Creatinine 5.95 H* D Est Cr Clr Drug Dosing 19.2 Est GFR ( Amer) 11.2 Est GFR (Non-Af Amer) 9.7 BUN/Creatinine Ratio 7.7 L Glucose 129 H POC Glucose 136 H Calcium 7.9 L Phosphorus 4.3 D Albumin 3.1 L PG Care Time/CCT Total # of Minutes Spent Total Time Spent with Patient: Total time spent is greater than 50% in coordination of care (as documented) at patient's floor/unit and/or counseling patient: Coding Level of Care Code 95023 Subseq Hosp Care Lvl 2 Diagnoses ESRD needing dialysis N18.6; Z99.2 Hypertension I10
[2021-07-31 14:35] LABS: Estimated Average Glucose 183 mg/dl
--- NOTE | 2021-07-31 16:08 | Discharge Summary ---
Date of Service July 31, 2021 Admission HPI Per Admitting Provider This patient is a 55-year-old male prisoner with a history of likely chronic systolic CHF, AICD, nonischemic cardiomyopathy, CKD unknown stage, gout, DM 2, HTN, and anemia who presents with concern for shortness of breath for a couple of days and EKG changes as noted on fdc paperwork. He was complaining of worsening shortness of breath with exertion as well as with lying flat worsening over the last 3 weeks along with increasing lower extremity edema. He has an occasional cough with clear sputum. He denies any chest pain. He has had some abdominal distention as well. I do not have any other records on him at this time on his history and he has never been to this facility previously. He reports no hospitalizations in a long time. He previously followed at [facility] with cardiology in [place], but has been incarcerated for the last 8 months. He reports the presented blood work fairly recently but he was never told the results and has no idea how well his kidneys typically function. He was referred to a store operations manager about 8 months ago when he was in the [facility] fdc and was started on bumetanide 2 mg p.o. daily at that time but never had follow-up as he has since been transferred to [facility] fdc. He was given 80 mg of IV Lasix prior to transport to the hospital. His medication list was reviewed and is noted to have HCTZ, bumetanide, furosemide, and losartan all present. In the ER, he was hypertensive and mildly tachycardic. His pulse ox was 94% on room air and he was not tachypneic. In the ER, he was found to have a creatinine of 7.86, and a potassium of 5.5. I do not know what his baseline renal function is. His proBNP was elevated at 569, troponin elevated at 0.07, and he had a microcytic anemia with a hemoglobin of 9.1. Urinalysis with 3+ protein. He was hypertensive and mildly tachycardic in a sinus rhythm. ECG did show inferolateral T wave inversions similar to the EKG at the fdc from the same date, however I have no baseline ECG to compare to. Chest x-ray was normal. He was not given any further diuretics in the ER as he had put out 750 mL of urine after arrival. I discussed his care with nephrology at the bedside. He will be admitted for suspected acute kidney injury and acute on chronic systolic CHF. Principal Diagnosis Acute renal failure, acute CHF Discharge Exam General: A&Ox3. NAD. Cooperative. Appears ill but nontoxic HEENT: Atraumatic, normocephalic. Visual acuity and hearing grossly intact Right permacath intact Pulm: CTAB A&P. -wheezes, -rales, -rhonchi. Symmetrical chest rise. No increase in work of breathing. No respiratory distress. Cardiac: RRR, systolic murmur. Radial pulses intact and symmetrical. Abdominal: Obese,nontender, nondistended, soft. BS present. : Davila in place draining tea colored urine Extremities: Moves all extremities equally, sensation in hands and feet intact Discharge Data Allergies Allergy/AdvReac Type Severity Reaction Status Date / Time No Known Allergies Allergy Unverified 07/23/21 14:15 Consultations 07/23/21 14:26 ED Decision to Admit Stat 07/23/21 15:55 Consult Nephrology Routine 07/23/21 15:58 Consult Health Information Management Routine 07/23/21 18:39 Consult Cardiology Routine 07/27/21 10:02 Consult Vascular Surgery Routine Procedures Performed Operation Date: 07/28/21 11:55 Actual Procedures p Insertion of Perm Catheter, Right internal Jugular Approach, ultrasound localization of right internal jugular vein, fluroscopy for positioning, moderate sedation time 7549-4375(Right) - Nav Salinas MD Ordered Studies 07/23/21 15:55 US renal/blad retro comp Urgent 07/28/21 07:36 EV cvc insrt tunnel wo 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 - take Imdur 30 mg daily. - glipizide has been held as this is generally not dialyzable, and can cause hypoglycemia with impaired renal function. Need additional antiglycemic adjustments as outpatient - home diuretics and renally acting blood pressure medicines including Bumex, furosemide, hydrochlorothiazide, and losartan have been discontinued at this time. - CBC/BMP plus MG/Phos to follow your electrolytes and blood levels. - Severe systolic CHF along with severe renal failure - baseline creatinine was 3.4 in 02/2021 and 3.5 in 05/2021 as per fdc labs - Creatinine was up to 8 on admission -s/p IV thiazide and IV lasix with good response to such on the first night of admission; however, creatinine worsened, and K jorge again, diuretics held. Creatinine continued to uptrend with an anion gap acidosis and volume overload. Hyperkalemia did transiently improved with Veltassa but did not normalize. Nephrology was consulted, patient agreeable to dialysis. Permacath was placed and patient is moving to Monday dialysis schedule -received second HD on 07/29, third session 07/30 -On isosorbide moninitrate, and hydralazine 50 mg PO TID. -Discontinued home ARB, HCTZ, bumetanide, and furosemide -Continue low-sodium, low potassium/renal diet -Follow BMP in the morning -Follow urine output -Checking serologies for renal failure to include SHAWNA, ANCA, complement, free kappa lambda light chain, glomerular basement membrane antibody, phospholipase A2 receptor antibody, UPEP, SPEP -D/radha back to facility who will provide transfer form to [facility] on Monday and will have Monday dialysis thereafter (2) CKD (chronic kidney disease): -Unknown stage prior to 02/2021, but was seen by nephrology in 2020 in [place] and told he may need dialysis in 3-4 years -Creatinine at the fdc on 02/2021 was 3.4 and was 3.5 in 05/2021 -Currently with end-stage renal disease -renal u/s without obstruction but cannot visualize left kidney-either atrophic or congenitally absent -significant nephropathy based on 3+ protein on u/a and high urine Protein/Cr ratio -likely diabetic nephropathy and/or HTN nephrosclerosis - or both -Appreciate nephrology consultation-needs dialysis as above Continue Renvela 1 tab 3 times daily M Time spend day of discharge minutes including direct patient care, documentation, review of labs and images, and coordination of care. Hemoglobin 8.0 creatinine 8.69 today. Phosphorus 5.6, potassium 4.2. No respiratory instability. (3) HFrEF (heart failure with reduced ejection fraction): -Previously followed with cardiology at [facility] in [place] -Has a long-standing ICD, with one exchange of the device since the original implantation -Interrogation performed here and no issues as per nurse that performed the interrogation, however the paperwork from the interrogation cannot be found - Pending outpt cardiology records-have not arrived yet - echo here noted - EF 25-30% - global hypokinesis with septal akinesis - dialysis as above - cont coreg - Discontinue diuretics, on dialysis - BMP am - ARB stopped - Cont hydralazine but lower dose from 100 to 50 mg TID due to lightheadedness and brief syncope with higher doses - Added imdur 30mg daily for preload and afterload reduction - Appreciate cardiology/nephrology recommendations -Continue to get ongoing Monday dialysis as outpatient (4) Elevated troponin: -no evidence of ACS -trop elevation 0.07/0.07/0.07 likely demand ischemia in setting of decompensated CHF OR it is high from his severely impaired renal function -echo noted - septal akinesis (previous [place]??) Although patient thinks he had a cardiac catheterization many years ago and was told there was no blockages. He has no history of cardiac stents that he knows of -awaiting records from [place] (5) Abnormal ECG: As above (6) Hyperkalemia: 2nd to severe renal impairment, now improved but remains mildly elevated today Was on Veltassa daily, however this is discontinued as patient is now tolerating Hemodialysis Stopped sodium bicarbonate 650 mg p.o. twice daily (7) Anemia: Hemoglobin 8-9, MCV low at 80 Transferrin sat 11% ferritin wnl IV venofer given x3 doses Epogen given on 07/26 Anemia appears most c/w ACD from CKD Folate wnl B12 level normal TSH wnl Trend CBC Continue oral iron as outpatient (8) Hypertension: Blood pressures are now much better controlled and on the low side at times with a brief episode of syncope after coughing on the night of 07/25 Cont coreg 50 mg p.o. twice daily Cont hydralazine - this was increased to 100mg TID at admission but will now decrease to 50 mg p.o. 3 times daily due to lightheadedness Cont imdur 30mg daily - this was started at admission Discontinued all home diuretics including Bumex, furosemide, HCTZ ARB discontinued due to severe renal impairment, hyperkalemia, etc. Normotensive 07/30 (9) Gout: No acute issues Dialysis dosing of allopurinol (10) Diabetes mellitus type 2 in obese: Blood sugars here fairly well controlled except for some mild hyperglycemia today He is refusing the NovoLog at times Increase Lantus to 10 units SQ at bedtime novolog SSI if he is willing to take it a1c pending adjust insulins as needed (11) Obesity: MORBID Obesity, BMI 40-45 (12) ICD (implantable cardioverter-defibrillator) in place: s/p implantation in 2006 then had device exchanged at some point since then he thinks about 10 years later Interrogation here without issues Cardiology following Telemetry here without significant abnormalities, sinus rhythm (13) Proteinuria: 3+ protein on u/a urine protein/Cr ratio elevated likely diabetic nephropathy or hypertensive nephrosclerosis - or both now with significant renal failure as above nephrology assistance appreciated Previously on losartan but now discontinued as above DVT prophylaxis - heparin SC Disposition-undergoing dialysis today, transfer available for present tomorrow and will have Monday outpatient dialysis Total Time Total Time Spent Total Time Spent (In Minutes): Time spend day of discharge 45 minutes including direct patient care, documentation, review of labs and images, and coordination of care. Discharge Plan Discharge Items [facility] Reason For Visit: hang, elevated troponin Discharge Diagnosis: Cardiorenal syndrome with renal failure Activity: Resume your previous activity Non-emergency contact: Primary Care Provider and Poultry Farmer Egg Call non-emergency contact if: you have any medication questions, your symptoms worsen and your pain is not controlled Follow-up/Referrals: Ann HURLEY [Primary Care Provider] - Diet: Dialysis Renal and Heart Healthy Addtl Attending Provider Instructions: You are seen in the hospital for progressive shortness of breath, volume overload due to heart failure with reduced ejection fraction and cardiorenal syndrome with renal failure. You are found to be in end-stage renal disease and required dialysis. A permacath for dialysis was placed by vascular surgery 07/28/2021. You underwent 3 sessions of dialysis, and future dialysis being scheduled for you on Monday. Outpatient follow-up with nephrology. You have had medications prescribed as below. You have been prescribed Renvela. Pleas take renvela 1tab 3 times daily with meals. Your hydralazine has been dose reduced from 100 to 50 mg 3 times daily. You have been prescribed a medication to reduce blood pressure called Imdur. Please take Imdur 30 mg daily. You are initially on sodium bicarbonate, this has been stopped as you are now on dialysis. Your glipizide has been held as this is generally not dialyzable, and can cause hypoglycemia with impaired renal function. Please continue insulin and have your dosing adjusted as needed by your outpatient provider. You are noted to be anemic, which can be worsened by kidney failure. Continue oral iron 325 mg daily as an outpatient. Your home diuretics and renally acting blood pressure medicines including Bumex, furosemide, hydrochlorothiazide, and losartan have been discontinued at this time. You should have a follow-up appointment with the [facility] physician within 1 week, additional follow-up with nephrology will be scheduled for you. Please have [facility] physician check a CBC/BMP plus MG/Phos to follow your electrolytes and blood levels. If you develop any new or worsening symptoms including fever, chills, sweats, chest pain, chest pressure, difficulty breathing, uncontrolled nausea/vomiting, rash, wheezing, passing out or nearly passing out, bleeding, black/bloody bowel movements, or other new or concerning symptoms please call your primary care physician, or call 911 for re-evaluation in the emergency department if you are very concerned. Pending Studies at Discharge: No Stand-Alone Forms: My [facility] Skilled Items Patient informed of condition?: Yes Discharge Level of Care: Other Communicable Disease: No Discharge Prognosis: Stable Lines: Ortiz Urinary Catheter: No Medications and DC Order Prescriptions: New sevelamer HCl [Renagel] 800 mg Tablet 800 mg PO TIDM Qty: 90 RF: 0 isosorbide mononitrate 30 mg Tablet Extended Release 24 Hr 30 mg PO QAM Qty: 30 RF: 0 hydralazine 50 mg Tablet 50 mg PO TID Qty: 90 RF: 0 Renal Caps 1 mg Capsule 1 cap PO QAM Qty: 30 RF: 0 Continued atorvastatin 80 mg Tablet 80 mg PO HS RF: 0 carvedilol 25 mg Tablet 50 mg PO BID RF: 0 allopurinol 100 mg Tablet 100 mg PO DAILY RF: 0 aspirin 81 mg Tablet,Delayed Release (Dr/Ec) 81 mg PO DAILY RF: 0 ferrous sulfate 325 mg (65 mg iron) Tablet 325 mg PO Q2D RF: 0 docusate sodium 100 mg Tablet 100 mg PO DAILY RF: 0 Novolin R Flexpen 100 unit/mL (3 mL) Insulin Pen 1 sliding scale dose SUBCUT USEASDIRECTD RF: 0 Novolin N Flexpen 100 unit/mL (3 mL) Insulin Pen See Rx Instructions .ROUTE .COMPLEX RF: 0 Discontinued furosemide 10 mg/mL Solution 80 mg IV ONCE RF: 0 bumetanide 2 mg Tablet 2 mg PO BID RF: 0 glipizide 10 mg Tablet 10 mg PO DAILY RF: 0 furosemide 80 mg Tablet 80 mg PO BID RF: 0 hydralazine 100 mg Tablet 100 mg PO BID RF: 0 hydrochlorothiazide 25 mg Tablet 25 mg PO DAILY RF: 0 losartan 100 mg Tablet 100 mg PO DAILY RF: 0 Discharge Orders: Discharge Order (Routine); Ordered 07/31/21 Ordered By: Gary Barrera Admission Data Admit Date/Time: 07/23/21 15:55 Attending Provider: Gary Barrera Admit Provider: Bernice Fernandez Primary Care Provider: Ann HURLEY Other Providers: Bernice Fernandez ; Luis Sharp ; Vishnu Babcock ; Nav Salinas Other Interventions: Discharge Summary Assessment (RN) Last Done: 07/31/21 10:12 Coding Level of Care Code D/C DAY MANAGEMENT >30 MINS Diagnoses Cardiorenal syndrome with renal failure I13.10 CKD (chronic kidney disease) N18.9 Chronic kidney disease stage: unspecified stage HFrEF (heart failure with reduced ejection fraction) I50.20 Elevated troponin R77.8 Abnormal ECG R94.31 Hyperkalemia E87.5 Anemia D64.9 Hypertension I10 Gout M10.9 Diabetes mellitus type 2 in obese E11.69; E66.9 Obesity E66.9 ICD (implantable cardioverter-defibrillator) in place Z95.810 Proteinuria R80.9
--- NOTE | 2021-08-04 09:11 | Coding Query ---
CONGESTIVE HEART FAILURE To Promote full compliance with coding requirements relating to patient care, physician participation is requested in all cases of medical biller coder uncertainty. Please assist us with the following questions. A diagnosis of Congestive Heart Failure is documented in the patient's medical record. To accurately code this diagnosis and to compare patient severity, we ask that you specify the type of heart failure by placing an X within the parenthesis (x). SYSTOLIC HEART FAILURE ( ) Acute ( ) Chronic ( ) Acute on Chronic ( ) Rheumatic ( ) Unknown DIASTOLIC HEART FAILURE ( ) Acute ( ) Chronic ( ) Acute on Chronic ( ) Rheumatic ( ) Unknown COMBINED SYSTOLIC AND DIASTOLIC HEART FAILURE ( ) Acute ( ) Chronic ( ) Acute on Chronic ( ) Rheumatic ( ) Unknown Was the CHF Present On Admission? Please check the appropriate box: ( ) Present on Admission ( ) Not Present On Admission ( ) Clinically undetermined Thank you Chris [facility]
[2021-08-04 21:46] LABS: ANCA Screen Negative (Negative); Anti Nuclear Antibody Screen NEGATIVE (NEGATIVE); Anti-Glom Basement Antibody <1.0 AI (<1.0); Complement C3 159 mg/dL (82-185); Free Kappa 129.3 mg/L (3.3-19.4); Free Kappa/Lambda Ratio 1.01 (0.26-1.65); Free Lambda 127.5 mg/L (5.7-26.3); Myeloperoxidase Ab <1.0 AI (<1.0); Proteinase-3 AB <1.0 AI (<1.0)
== END 2021-07-31 10:49 | DRG 673 ==
LOC: ED 12:36 → SUATTDRO 15:55 → 2S 15:55